=== PATIENT | female | born 1960 | race Caucasian/White ===

== ENCOUNTER 2019-03-17 00:49 | Inpatient (IN) ==
[2019-03-17] MEDS ORDERED: LACTATED RINGERS 1,000 ML IV SCH (01:00)
[2019-03-17] MEDS ORDERED: ALBUTEROL SULFATE 5 MG/ML NEB SOLUTION BOTTLE NEB ONE (01:04)
[2019-03-17] MEDS ORDERED: methylPREDNISolone SOD SUCC 125 MG/2 ML VIAL IV ONE (01:05)
[2019-03-17] MEDS ORDERED: AZITHROMYCIN 500 MG in DEXTROSE 5% IN WATER 250 ML IV ONE (01:09)
[2019-03-17] MEDS ORDERED: FUROSEMIDE 40 MG/4 ML VIAL IV ONE (01:09)
[2019-03-17] MEDS ORDERED: cefTRIAXone 2 GM in DEXTROSE 5% IN WATER 50 ML IV ONE (01:09)
[2019-03-17 02:08] LABS: Basophils # (Auto) 0 K/mcL (0.0-0.3); Basophils % (Auto) 0.2 % (0.0-2.0); Eosinophils # (Auto) 0.4 K/mcL (0.0-0.7); Granulocytes % (Auto) 82.3 % (38.0-78.0); Hemoglobin 15.3 g/dL (12.0-15.0); Lymphocytes # (Auto) 1.6 K/mcL (1.5-4.8); Lymphocytes % (Auto) 8.7 % (15.5-49.0); Mean Cell Volume 91.2 fL (80.0-100.0); Mean Corpuscular HGB Conc 32.6 g/dL (31.0-36.0); Mean Platelet Volume 9.7 fL (7.4-10.4); Monocytes # (Auto) 1.3 K/mcL (0.1-0.9); Monocytes % (Auto) 6.8 % (1.0-12.0); Platelet Count 252 K/mcL (140-440); RBC 5.15 M/mcL (4.00-5.20); Red Cell Distribution Width 15.4 % (11.5-14.5); WBC 18.4 K/mcL (4.5-11.0)
[2019-03-17 02:27] LABS: ALT/SGPT 11 U/l (0-40); AST/SGOT 17 U/l (0-37); Albumin 3.1 gm/dL (3.2-5.2); Albumin/Globulin Ratio 0.6 (1.0-2.3); Alkaline Phosphatase 177 U/L (39-117); Bilirubin,Total 0.6 mg/dL (0.0-1.0); Blood Urea Nitrogen 5 mg/dl (6-20); Calcium 9.5 mg/dl (8.6-10.4); Carbon Dioxide 31 mmol/L (22-30); Chloride 92 mmol/L (96-108); Globulin 5.1 gm/dL (2.2-3.7); Glomerular Filtration Rate 116; Glucose 174 mg/dL (70-105); proBNP 612.7 pg/ml (0-125)
[2019-03-17] MEDS ORDERED: methylPREDNISolone SOD SUCC 125 MG/2 ML VIAL IV SCH (06:00)
[2019-03-17 06:19] LABS: Basophils # (Auto) 0 K/mcL (0.0-0.3); Basophils % (Auto) 0.2 % (0.0-2.0); Eosinophils # (Auto) 0 K/mcL (0.0-0.7); Eosinophils % (Auto) 0.2 % (0.0-7.0); Granulocytes % (Auto) 92.3 % (38.0-78.0); Hematocrit 46.8 % (36.0-48.0); Hemoglobin 15.4 g/dL (12.0-15.0); Lymphocytes # (Auto) 0.7 K/mcL (1.5-4.8); Lymphocytes % (Auto) 4.7 % (15.5-49.0); Mean Cell Volume 91.1 fL (80.0-100.0); Mean Corpuscular HGB Conc 32.8 g/dL (31.0-36.0); Mean Platelet Volume 9.3 fL (7.4-10.4); Monocytes # (Auto) 0.4 K/mcL (0.1-0.9); Monocytes % (Auto) 2.6 % (1.0-12.0); Platelet Count 238 K/mcL (140-440); RBC 5.14 M/mcL (4.00-5.20); Red Cell Distribution Width 15.7 % (11.5-14.5)
[2019-03-17 06:39] LABS: ALT/SGPT 11 U/l (0-40); AST/SGOT 16 U/l (0-37); Albumin/Globulin Ratio 0.6 (1.0-2.3); Alkaline Phosphatase 167 U/L (39-117); Bilirubin,Direct < 0.2 mg/dL (0.0-0.3); Bilirubin,Total 0.3 mg/dL (0.0-1.0); Blood Urea Nitrogen 5 mg/dl (6-20); Calcium 9.6 mg/dl (8.6-10.4); Carbon Dioxide 33 mmol/L (22-30); Chloride 94 mmol/L (96-108); Globulin 5.2 gm/dL (2.2-3.7); Glomerular Filtration Rate 108; Glucose 151 mg/dL (70-105); Lactate Dehydrogenase 176 U/L (94-250); Phosphorous 3.1 mg/dL (2.7-4.5); Triglycerides 74 mg/dl (<150); Uric Acid 2.6 mg/dL (2.5-8.0)
--- NOTE | 2019-03-17 07:01 | Emergency Department Note ---
SOB HPI - General Chief Complaint: Shortness of Breath/Dyspnea Stated Complaint: shortness of breathe Time Seen by Provider: 03/17/19 00:59 - History of Present Illness This patient has a history of both COPD and heart failure and has been short of breath the last 4 days with cough productive of some green phlegm. She normally wears oxygen at night but is been using it 24/. She is wheezy and in some distress with an O2 saturation in the 70s according to EMS. She is up into the 80s on a nonrebreather. We are instituting BiPAP. She is gotten 2 breathing treatments in route and still is quite wheezy. We are instituting a heart neb c ontinuously. - Related Data Home Medications Medication Instructions Recorded Confirmed Albuterol Sulfate [Ventolin] 2 puff INH Q4HP PRN 03/17/19 03/17/19 Cetirizine [ZyrTEC] 10 mg PO DAILY 03/17/19 03/17/19 Febuxostat [Uloric] 80 mg PO QDAY 03/17/19 03/17/19 Furosemide [Lasix] 40 mg PO DAILY 03/17/19 03/17/19 Lisinopril 30 mg PO QDAY 03/17/19 03/17/19 Montelukast Sodium [Singulair] 10 mg PO QDAY 03/17/19 03/17/19 busPIRone [Buspar] 15 mg PO ONCE 03/17/19 03/17/19 Allergies Allergy/AdvReac Type Severity Reaction Status Date / Time No Known Drug Allergies Allergy Unverified 03/17/19 00:56 Review of Systems All systems ED: reviewed and negative except as stated. Past Medical History - Past Medical History Medical history: Reports: CHF, COPD - Social History smoking status: Current every day smoker Physical Exam Limitations: no limitations General appearance: alert Head: atraumatic Eye: Present: normal appearance ENT: Present: normal exam Neck: Present: normal inspection Chest: Present: normal inspection Respiratory: Present: wheezes Cardiovascular: Present: regular rate, normal rhythm, normal heart sounds Abdominal: Present: soft. Absent: distention, tenderness Neurological: Present: alert Psychiatric: Present: normal affect Skin: Present: warm, dry Course Vital Signs Pulse Rate 117 H 03/17/19 00:50 Respiratory Rate 32 H 03/17/19 00:50 Blood Pressure 139/108 03/17/19 00:50 Pulse Oximetry (%) 80 L 03/17/19 00:50 Temperature 98.4 F 03/17/19 04:01 Pulse Rate 89 03/17/19 06:00 Respiratory Rate 24 H 03/17/19 06:00 Blood Pressure 130/63 03/17/19 06:00 Pulse Oximetry (%) 91 03/17/19 06:00 Shortness of Breath/Dyspnea - [facility] Narrative Medical decision making narrative: Chest x-ray to my reading was concerning for congestive heart failure however her BNP was only 600. She did respond to BiPAP and was much more comfortable with O2 saturations in the high 90s. Initial blood gas showed a PCO2 of 66. But at this time I think she is improving and will avoid intubation. I did do blood cultures and treated her with Rocephin and Zithromax. Also gave her 40 mg of Lasix IV. Discussed the case with Dr. Guadalupe and she will be admitted to the hospital. - Lab Data Lab results reviewed: Yes I reviewed the patient's lab results. Result diagrams: 03/17/19 05:37 03/17/19 05:37 Lab Results 03/17/19 03/17/19 03/17/19 Range/Units 01:18 01:18 01:18 WBC 18.4 H (4.5-11.0) K/mcL RBC 5.15 (4.00-5.20) M/mcL Hgb 15.3 H (12.0-15.0) g/dL Hct 47.0 (36.0-48.0) % MCV 91.2 (80.0-100.0) fL MCH 29.7 (26.0-34.0) pg MCHC 32.6 (31.0-36.0) g/dL RDW 15.4 H (11.5-14.5) % Plt Count 252 (140-440) K/mcL MPV 9.7 (7.4-10.4) fL Gran % 82.3 H (38.0-78.0) % Lymph % (Auto) 8.7 L (15.5-49.0) % [place] % (Auto) 6.8 (1.0-12.0) % Eos % (Auto) 2.0 (0.0-7.0) % Baso % (Auto) 0.2 (0.0-2.0) % Gran # 15.1 H (1.8-8.0) K/mcL Lymph # (Auto) 1.6 (1.5-4.8) K/mcL [place] # (Auto) 1.3 H (0.1-0.9) K/mcL Eos # (Auto) 0.4 (0.0-0.7) K/mcL Baso # (Auto) 0 (0.0-0.3) K/mcL VBG Lactic Acid 0.7 (0.5-2.0) mmol/L Sodium 134 (133-145) mmol/L Potassium 3.7 (3.3-5.1) mmol/L Chloride 92 L (96-108) mmol/L Carbon Dioxide 31 H (22-30) mmol/L Anion Gap 11.0 (8-16) BUN 5 L (6-20) mg/dl Creatinine 0.4 L (0.6-1.1) mg/dl GFR Calculation 116 Glucose 174 H (70-105) mg/dL Calcium 9.5 (8.6-10.4) mg/dl Total Bilirubin 0.6 (0.0-1.0) mg/dL AST 17 (0-37) U/l ALT 11 (0-40) U/l Alkaline Phosphatase 177 H (39-117) U/L NT-Pro-B Natriuret Pep 612.7 H (0-125) pg/ml Total Protein 8.2 (5.9-8.4) gm/dL Albumin 3.1 L (3.2-5.2) gm/dL Globulin 5.1 H (2.2-3.7) gm/dL Albumin/Globulin Ratio 0.6 L (1.0-2.3) - Radiology Data Radiology results reviewed: Yes I reviewed the patient's radiology results. Disposition Pt seen by MANAGER INTEL/PA only: No Clinical Impression: Acute exacerbation of chronic obstructive airways disease, Congestive heart failure Disposition: Xfer As Inpt ([facility]) Condition: Undetermined
[2019-03-17] MEDS ORDERED: ACETAMINOPHEN 650 MG/65 ML BOTTLE IV PRN (07:46)
[2019-03-17] MEDS ORDERED: POTASSIUM CHLORIDE 20 MEQ PACKET PO PRN (07:46)
[2019-03-17] MEDS ORDERED: guaiFENesin/CODEINE 10 ML UDC PO PRN (07:46)
[2019-03-17] MEDS ORDERED: ACETAMINOPHEN 325 MG TABLET PO PRN (07:46)
[2019-03-17] MEDS ORDERED: MELATONIN 3 MG TABLET PO PRN (07:46)
[2019-03-17] MEDS ORDERED: MAGNESIUM SULFATE 2 GM/50 ML BAG IV PRN (07:46)
[2019-03-17] MEDS ORDERED: POTASSIUM CHLORIDE 40 MEQ in DEXTROSE 5% IN WATER 500 ML IV PRN (07:46)
[2019-03-17] MEDS ORDERED: ONDANSETRON 4 MG/2 ML VIAL IV PRN (07:46)
--- NOTE | 2019-03-17 07:50 | Internal Med History&Physical ---
Medical - H&P: [facility] Patient information: Note initiated : 03/17/19 at 7:49 am Service Date, if different from initiated Date: [] Patient: Grace Canales a 58 y/o F admitted on 03/17/19 for shortness of breathe. Chief Complaint: [] Chief complaint: SOB History of present illness: Ms. Canales is a 58 year old F active smoker and with a known history of COPD who presents with 4 days onset of worsening shortness of breath along progressive orthopnea and inability to perform activities of daily living. Patient normally uses inhalers but with minimal relief. She is up-to-date on pneumonia and flu vaccine. She however continues to smoke and stopped 4 days ago with onset of symptoms. She denies associated fever but endorses a yellow productive sputum. She denies diarrhea dysuria joint pain headache, rash, shaking chills. She presents to the ER with above symptoms. Initial work-up was consistent with COPD exacerbation with sats mid 60s. Patient was started on BiPAP along with steroids and bronchodilators. Subsequently hospitalist service was consulted. At the time of evaluation patient is currently on BiPAP. Now able to talk and answer questions. She appears remarkably distress. She is tachycardic. She denies sick contacts. Review of systems A 10 point review of system was performed and is negative except for one discussed above Medical - H&P: PMH Medical history: History of COPD Gout Anxiety disorder Hypertension Medical - H&P: Meds Home Medications Medication Instructions Recorded Confirmed Type Albuterol Sulfate [Ventolin] 2 puff INH Q4HP PRN 03/17/19 03/17/19 History Aspirin 81 mg PO DAILY 03/17/19 03/17/19 History Cetirizine [ZyrTEC] 10 mg PO DAILY 03/17/19 03/17/19 History Febuxostat [Uloric] 80 mg PO QDAY 03/17/19 03/17/19 History Fluticasone/Salmeterol [Advair 1 puff INH BID 03/17/19 03/17/19 History 250-50 Diskus] Furosemide [Lasix] 20 mg PO BID 03/17/19 03/17/19 History HYDROcodone/APAP 10/325MG [[place] 1 tab PO Q12HP PRN 03/17/19 03/17/19 History 10-325Mg] LORazepam [Ativan] 2 mg PO BIDP PRN 03/17/19 03/17/19 History Lisinopril [Zestril] 30 mg PO DAILY 03/17/19 03/17/19 History Montelukast Sodium [Singulair] 10 mg PO HS 03/17/19 03/17/19 History Venlafaxine [Effexor Xr] 150 mg PO DAILY 03/17/19 03/17/19 History busPIRone [Buspar] 15 mg PO BIDP PRN 03/17/19 03/17/19 History morphine [Ms Contin] 60 mg PO TID 03/17/19 03/17/19 History tiZANidine [Zanaflex] 4 mg PO TIDP PRN 03/17/19 03/17/19 History Allergies Allergy/AdvReac Type Severity Reaction Status Date / Time No Known Drug Allergies Allergy Unverified 03/17/19 00:56 Medical - H&P: Exam - Constitutional Vitals: Temp Pulse Resp BP Pulse Ox 98.0 F 82 26 H 139/80 94 03/17/19 07:36 03/17/19 07:36 03/17/19 07:36 03/17/19 07:36 03/17/19 07:36 General appearance: moderate distress Exam: Dyspneic and anxious Currently on BiPAP Head normocephalic Oral cavity dry No ear nose discharge Neck no lymphadenopathy or bruit S1-S2 tachycardia Prolonged expiratory phase/rhonchi Diminished breath sounds bases Abdomen soft nontender Lower extremity no cyanosis clubbing no joint swelling Skin no suspicious lesion Psych anxious but alert and responding to commands Neuro nonfocal Medical - H&P: Reslt - Labs CBC & Chem 7: 03/18/19 03:35 03/18/19 03:35 Labs: Short CBC 03/17/19 03/17/19 Range/Units 01:18 05:37 WBC 18.4 H 15.0 H (4.5-11.0) K/mcL Hgb 15.3 H 15.4 H (12.0-15.0) g/dL Hct 47.0 46.8 (36.0-48.0) % Plt Count 252 238 (140-440) K/mcL BMP 03/17/19 03/17/19 01:18 05:37 Sodium 134 138 Potassium 3.7 4.0 Chloride 92 L 94 L Carbon Dioxide 31 H 33 H BUN 5 L 5 L Creatinine 0.4 L 0.5 L Glucose 174 H 151 H Calcium 9.5 9.6 Liver Function 03/17/19 03/17/19 Range/Units 01:18 05:37 Total Bilirubin 0.6 0.3 (0.0-1.0) mg/dL Direct Bilirubin < 0.2 (0.0-0.3) mg/dL GGT 75 H (5-36) U/L AST 17 16 (0-37) U/l ALT 11 11 (0-40) U/l Alkaline Phosphatase 177 H 167 H (39-117) U/L Albumin 3.1 L 3.0 L (3.2-5.2) gm/dL Medical - H&P: A/P (1) Acute respiratory failure with hypoxia and hypercapnia Current visit: Yes Status: Acute * Acute hypoxic hypercapnic respiratory failure-continue BiPAP/oxygen/ABG s/pulmonary toilet * COPD exacerbation-continue steroids/bronchodilators/noninvasive ventilation * Anxiety disorder continue BuSpar * History of gout continue febuxostat * Seasonal allergy disorder continue Zyrtec * Hypertension continue lisinopril * C/c pain - on home meds * Full code * Prophylaxis heparin Plan * ICU admit in light of hypoxic hypercarbic respiratory failure * Noninvasive ventilation/serial ABGs * Bronchodilators/IV steroids/pulmonary toilet * Prior medical condition management on home meds Critical care time spent in excess of 35 minutes on management of hypoxic respiratory failure/noninvasive ventilation Medical - H&P: Qual - VTE Deep Vein Thrombosis/Pulmonary Embolism Present on Admission: No
--- NOTE | 2019-03-17 08:27 | XRay Report ---
HISTORY: Worsening shortness of breath, smoker FINDINGS: There are moderate to severe generalized alveolar infiltrates throughout both lungs. There is greater involvement in the right lung than left. The heart is mildly enlarged but magnified by portable technique. No pleural effusion is detected. The agata appear prominent. No prior study is available for comparison. IMPRESSION: widespread bilateral infiltrates. This could be due to pneumonia, pulmonary edema, noninfectious inflammatory process or ARDS. Mild cardiomegaly IMPRESSION: Interpreted and Authenticated by: Santiago Akers 03/17/19
[2019-03-17] MEDS: Febuxostat [Uloric] 80 mg Tab PO SCH (09:03)
[2019-03-17] MEDS: DOCUSATE SODIUM 100 MG CAPSULE PO SCH ×3 (09:04→21:10)
[2019-03-17] MEDS: LISINOPRIL 20 MG TABLET PO SCH (09:04)
[2019-03-17] MEDS: THIAMINE 100 MG TABLET PO SCH ×2 (09:04→09:32)
[2019-03-17] MEDS: FOLIC ACID 1 MG TABLET PO SCH ×2 (09:04→09:32)
[2019-03-17] MEDS: HEPARIN 5,000 UNIT/ML VIAL SQ SCH ×2 (09:04→22:27)
[2019-03-17] MEDS: MONTELUKAST 10 MG TABLET PO SCH ×3 (09:04→21:12)
[2019-03-17] MEDS: FUROSEMIDE 40 MG TABLET PO SCH (09:04)
[2019-03-17] MEDS: MULTIVIT,THER IRON,CA,FA & MIN 1 TABLET PO SCH ×2 (09:04→09:32)
[2019-03-17] MEDS: CETIRIZINE 10 MG TABLET PO SCH (09:05)
[2019-03-17] MEDS: busPIRone 5 MG TABLET PO SCH (09:08)
[2019-03-17] MEDS: LEVOFLOXACIN 750 MG/150 ML BAG IV SCH (09:09)
[2019-03-17] MEDS: IPRATROPIUM/ALBUTEROL 3 ML AMPUL.NEB NEB SCH ×4 (09:28→23:21)
[2019-03-17] MEDS: BUDESONIDE 0.5 MG/2 ML AMPUL.NEB NEB SCH ×2 (09:28→18:42)
[2019-03-17] MEDS: methylPREDNISolone SOD SUCC 125 MG/2 ML VIAL IV SCH ×2 (14:06→22:27)
[2019-03-17] MEDS: 0.9 % SODIUM CHLORIDE 10 ML SYRINGE IV SCH ×2 (14:06→22:27)
[2019-03-17] MEDS: SENNOSIDES/DOCUSATE SODIUM 1 TAB TABLET PO SCH (21:10)
[2019-03-17] MEDS: MUPIROCIN OINT 2% 22GM NARES SCH (22:26)
[2019-03-18] MEDS: IPRATROPIUM/ALBUTEROL 3 ML AMPUL.NEB NEB SCH ×6 (03:00→23:15)
[2019-03-18] MEDS: 0.9 % SODIUM CHLORIDE 10 ML SYRINGE IV SCH ×3 (05:28→20:25)
[2019-03-18] MEDS: methylPREDNISolone SOD SUCC 125 MG/2 ML VIAL IV SCH ×3 (05:28→21:50)
[2019-03-18 06:31] LABS: Hematocrit 45.8 % (36.0-48.0); Hemoglobin 14.9 g/dL (12.0-15.0); Mean Cell Volume 91.5 fL (80.0-100.0); Mean Corpuscular HGB Conc 32.5 g/dL (31.0-36.0); Mean Platelet Volume 9.6 fL (7.4-10.4); Platelet Count 264 K/mcL (140-440); RBC 5.01 M/mcL (4.00-5.20); Red Cell Distribution Width 15.6 % (11.5-14.5); WBC 16.1 K/mcL (4.5-11.0)
[2019-03-18 06:47] LABS: ALT/SGPT 10 U/l (0-40); AST/SGOT 15 U/l (0-37); Albumin 2.9 gm/dL (3.2-5.2); Albumin/Globulin Ratio 0.6 (1.0-2.3); Alkaline Phosphatase 154 U/L (39-117); Bilirubin,Direct < 0.2 mg/dL (0.0-0.3); Bilirubin,Total 0.3 mg/dL (0.0-1.0); Carbon Dioxide 31 mmol/L (22-30); Glomerular Filtration Rate 108; Glucose 140 mg/dL (70-105); Lactate Dehydrogenase 173 U/L (94-250); Phosphorous 3.5 mg/dL (2.7-4.5); Triglycerides 111 mg/dl (<150); Uric Acid 2.8 mg/dL (2.5-8.0)
[2019-03-18 06:48] LABS: Blood Urea Nitrogen 17 mg/dl (6-20); Chloride 95 mmol/L (96-108)
[2019-03-18] MEDS: BUDESONIDE 0.5 MG/2 ML AMPUL.NEB NEB SCH ×2 (07:26→20:45)
--- NOTE | 2019-03-18 08:30 | XRay Report ---
HISTORY: Short of breath and follow-up bilateral pulmonary infiltrates FINDINGS: There are mild generalized infiltrates throughout both lungs. The greatest consolidation is in the left lung base adjacent to the diaphragm. The consolidation above the diaphragm has become worse since 03/17/19. Remainder of the infiltrates have improved. Remaining an underlying parenchymal scarring of the minor fissure. The heart is borderline enlarged and has decreased in size. No pleural effusion is detected. IMPRESSION: improving bilateral infiltrates. The relative rapid improvement suggests this is more likely due to pulmonary edema than pneumonia. Increasing consolidation at the left lung base which may be superimposed atelectasis Interpreted and Authenticated by: Santiago Akers 03/18/19
[2019-03-18] MEDS ORDERED: LORazepam 1 MG TABLET PO PRN (09:16)
[2019-03-18] MEDS ORDERED: HYDROcodone/APAP 10/325MG TABLET PO PRN (09:16)
[2019-03-18] MEDS ORDERED: tiZANidine 4 MG TABLET PO PRN (09:16)
[2019-03-18 09:26] LABS: Band Neutrophils % 29 % (0-10); Lymphocytes % 11 % (15-49); Monocytes % (Manual) 2 % (1-12); Platelet Estimate NORMAL (NORMAL); RBC Morphology NORMAL (NORMAL); Segmented Neutrophils % 58 % (38-78)
[2019-03-18] MEDS: FOLIC ACID 1 MG TABLET PO SCH (09:38)
[2019-03-18] MEDS: MULTIVIT,THER IRON,CA,FA & MIN 1 TABLET PO SCH (09:38)
[2019-03-18] MEDS: DOCUSATE SODIUM 100 MG CAPSULE PO SCH ×3 (09:38→20:43)
[2019-03-18] MEDS: THIAMINE 100 MG TABLET PO SCH (09:38)
[2019-03-18] MEDS: FUROSEMIDE 40 MG TABLET PO SCH (09:38)
[2019-03-18] MEDS: LISINOPRIL 20 MG TABLET PO SCH (09:39)
[2019-03-18] MEDS: VENLAFAXINE 150 MG CAP.XL.24H PO SCH (09:39)
[2019-03-18] MEDS: busPIRone 5 MG TABLET PO SCH (09:39)
[2019-03-18] MEDS: ASPIRIN 81 MG TAB.CHEW PO SCH (09:40)
[2019-03-18] MEDS: HEPARIN 5,000 UNIT/ML VIAL SQ SCH ×2 (09:40→20:24)
[2019-03-18] MEDS: CETIRIZINE 10 MG TABLET PO SCH (09:40)
[2019-03-18] MEDS: morphine 30 MG TAB.SR.12H PO SCH ×3 (09:41→20:42)
[2019-03-18] MEDS: LEVOFLOXACIN 750 MG/150 ML BAG IV SCH (09:42)
[2019-03-18] MEDS: MUPIROCIN OINT 2% 22GM NARES SCH ×2 (09:42→20:24)
[2019-03-18] MEDS: Febuxostat [Uloric] 80 mg Tab PO SCH (09:43)
--- NOTE | 2019-03-18 13:13 | Internal Med Progress Note ---
Medical - PN: Subj Patient information: Note initiated : 03/18/19 at 1:09 pm Service Date, if different from initiated Date: [] Patient: Grace Canales a 58 y/o F admitted on 03/17/19 for shortness of breathe. Chief Complaint: [] Interval history: Ms. Canales is a 58 year old F active smoker and with a known history of COPD who presents with 4 days onset of worsening shortness of breath along progressive orthopnea and inability to perform activities of daily living. Patient normally uses inhalers but with minimal relief. She is up-to-date on pneumonia and flu vaccine. She however continues to smoke and stopped 4 days ago with onset of symptoms. She denies associated fever but endorses a yellow productive sputum. She denies diarrhea dysuria joint pain headache, rash, shaking chills. She presents to the ER with above symptoms. Initial work-up was consistent with COPD exacerbation with sats mid 60s. Patient was started on BiPAP along with steroids and bronchodilators. Subsequently hospitalist service was consulted. At the time of evaluation patient is currently on BiPAP. Now able to talk and a nswer questions. She appears remarkably distress. She is tachycardic. She denies sick contacts. 03/18-patient clinically improved however continues to be on noninvasive ventilation. Improved work of breathing/hypoxia. Continuing steroids and bronchodilators. Counseled for smoking cessation. Restarted back on home medications. Continue weaning noninvasive ventilation - Constitutional Vitals: Vital Signs Temp Pulse Resp BP Pulse Ox 97.6 F 86 23 H 111/56 92 03/18/19 12:01 03/18/19 12:01 03/18/19 12:01 03/18/19 12:01 03/18/19 12:01 Period Temp Pulse Resp BP Sys/Riggins Pulse Ox Last 24 Hr 97.1 F-98.3 F 66-96 17-29 99-121/42-73 83-100 Intake and Output 03/17/19 03/18/19 03/18/19 21:59 05:59 13:59 Intake Total 240 0 720 Output Total 950 Balance 240 -950 720 Weight 247 lb 1.6 oz Intake & Output: Intake & Output 03/17/19 03/18/19 03/18/19 21:59 05:59 13:59 Intake Total 240 0 720 Output Total 950 Balance 240 -950 720 Weight 247 lb 1.6 oz Intake: Oral 240 0 720 Output: Void Amount 950 Other: Meal Breakfast Percent of Meal Consumed 75% General appearance: no acute distress Exam: On BiPAP Nonlabored breathing Nondistended abdomen Minimal anxiety No telemetry events Medical - PN: Obj Da - Labs CBC & Chem 7: 03/18/19 03:35 03/18/19 03:35 Labs: Abnormal Lab Results 03/18/19 03/18/19 03/17/19 03:35 03:35 05:37 WBC 16.1 H Hgb RDW 15.6 H Gran % Lymph % (Auto) Gran # Lymph # (Auto) [place] # (Auto) Band Neutrophils % 29 H Lymphocytes % 11 L Chloride 95 L 94 L Carbon Dioxide 31 H 33 H BUN 5 L Creatinine 0.5 L 0.5 L Glucose 140 H 151 H GGT 60 H 75 H Alkaline Phosphatase 154 H 167 H NT-Pro-B Natriuret Pep Albumin 2.9 L 3.0 L Globulin 5.0 H 5.2 H Albumin/Globulin Ratio 0.6 L 0.6 L 03/17/19 03/17/19 03/17/19 05:37 01:18 01:18 WBC 15.0 H 18.4 H Hgb 15.4 H 15.3 H RDW 15.7 H 15.4 H Gran % 92.3 H 82.3 H Lymph % (Auto) 4.7 L 8.7 L Gran # 13.8 H 15.1 H Lymph # (Auto) 0.7 L [place] # (Auto) 1.3 H Band Neutrophils % Lymphocytes % Chloride 92 L Carbon Dioxide 31 H BUN 5 L Creatinine 0.4 L Glucose 174 H GGT Alkaline Phosphatase 177 H NT-Pro-B Natriuret Pep 612.7 H Albumin 3.1 L Globulin 5.1 H Albumin/Globulin Ratio 0.6 L Meds: Medications Acetaminophen (Tylenol) 650 mg PO Q4-6HP PRN; Protocol PRN Reason: Per Pain Protocol/Fever > 101 Last Admin: 03/18/19 05:10 Dose: 650 mg Documented by: Hydrocodone Bitart/Acetaminophen ([place] 10/325mg) 1 tab PO Q12HP PRN; Protocol PRN Reason: Pain Last Admin: 03/18/19 09:40 Dose: 1 tab Documented by: Albuterol/Ipratropium (Duoneb) 3 ml NEB Q4HRT [facility] Last Admin: 03/18/19 11:07 Dose: 3 ml Documented by: Aspirin (Aspirin) 81 mg PO DAILY [facility] Last Admin: 03/18/19 09:40 Dose: 81 mg Documented by: Budesonide (Pulmicort) 0.5 mg NEB Q12 [facility] Last Admin: 03/18/19 07:26 Dose: 0.5 mg Documented by: Buspirone HCl (Buspar) 15 mg PO DAILY [facility] Last Admin: 03/18/19 09:39 Dose: 15 mg Documented by: Cetirizine HCl (Zyrtec) 10 mg PO DAILY [facility] Last Admin: 03/18/19 09:40 Dose: 10 mg Documented by: Docusate Sodium (Colace) 100 mg PO BID [facility] Last Admin: 03/18/19 09:38 Dose: 100 mg Documented by: Folic Acid (Folic Acid) 1 mg PO DAILY [facility] Last Admin: 03/18/19 09:38 Dose: 1 mg Documented by: Furosemide (Lasix) 40 mg PO DAILY [facility] Last Admin: 03/18/19 09:38 Dose: 40 mg Documented by: Guaifenesin/Codeine Phosphate (Robitussin Ac) 10 ml PO Q4HP PRN PRN Reason: Cough Last Admin: 03/18/19 09:38 Dose: 10 ml Documented by: Heparin Sodium (Porcine) (Heparin) 5,000 unit SQ Q12 [facility] Last Admin: 03/18/19 09:40 Dose: 5,000 unit Documented by: Acetaminophen (Ofirmev) 650 mg in 65 mls @ 130 mls/hr IV Q6HP PRN; Protocol PRN Reason: Per Pain Protocol/Fever > 101 Potassium Chloride 40 meq/ (Dextrose) 520 mls @ 130 mls/hr IV UD PRN PRN Reason: K+ = or < 3.5 Magnesium Sulfate (Magnesium Sulfate) 2 gm in 50 mls @ 50 mls/hr IV UD PRN PRN Reason: MG = or < 1.7 Levofloxacin (Levaquin) 750 mg in 150 mls @ 100 mls/hr IV Q24H [facility]; Protocol Last Admin: 03/18/19 09:42 Dose: 100 mls/hr Documented by: Iron Carb/Multivit/Product Examiner/Folic Acid (Multivitamin W/Minerals) 1 tab PO DAILY [facility] Last Admin: 03/18/19 09:38 Dose: 1 tab Documented by: Lisinopril (Zestril) 30 mg PO QDAY [facility] Last Admin: 03/18/19 09:39 Dose: 30 mg Documented by: Lorazepam (Ativan) 1 mg PO BIDP PRN PRN Reason: Anxiety Last Admin: 03/18/19 09:39 Dose: 1 mg Documented by: Melatonin (Melatonin 3mg Tablet) 3 mg PO HSP PRN PRN Reason: Insomnia Methylprednisolone Sodium Succinate (Solu-Medrol) 60 mg IV Q8 [facility] Last Admin: 03/18/19 05:28 Dose: 60 mg Documented by: Montelukast Sodium (Singular) 10 mg PO [facility] Last Admin: 03/17/19 21:12 Dose: Not Given Documented by: Morphine Sulfate (Ms Contin) 60 mg PO TID [facility]; Protocol Last Admin: 03/18/19 09:41 Dose: 60 mg Documented by: Mupirocin (Bactroban Oint 2%) 1 dose NARES BID [facility] Last Admin: 03/18/19 09:42 Dose: 1 dose Documented by: Febuxostat [Uloric] (80 Mg Tab) 1 dose PO QDAY [facility] Last Admin: 03/18/19 09:43 Dose: 1 dose Documented by: Ondansetron HCl (Zofran) 4 mg IV Q4-6HP PRN; Protocol PRN Reason: Nausea And Vomiting Potassium Chloride (Klor-Con) 40 meq PO DAILYP PRN PRN Reason: K+ < 3.5 Senna/Docusate Sodium (Senna Plus Tablet) 1 tab PO [facility] Last Admin: 03/17/19 21:10 Dose: Not Given Documented by: Sodium Chloride (Saline Flush) 10 ml IV Q8 [facility] Last Admin: 03/18/19 05:28 Dose: 10 ml Documented by: Thiamine HCl (Vitamin B1) 100 mg PO DAILY [facility] Last Admin: 03/18/19 09:38 Dose: 100 mg Documented by: Tizanidine HCl (Zanaflex) 4 mg PO TIDP PRN PRN Reason: MUSCLE SPASMS Last Admin: 03/18/19 09:39 Dose: 4 mg Documented by: Venlafaxine HCl (Effexor Xr) 150 mg PO DAILY [facility] Last Admin: 03/18/19 09:39 Dose: 150 mg Documented by: Medical - PN: A/P - Time Spent With Patient Total time spent is greater than 50% in coordination of care (as documented) at patient's floor/unit and/or counseling patient: Greater than 35 minutes (Critical care time) (1) Acute respiratory failure with hypoxia and hypercapnia Status: Acute Assessment and plan: * Acute hypoxic hypercapnic respiratory failure-secondary to COPD exacerbation. Clinical improvement on noninvasive ventilation improved saturation. Continue serial ABG/pulmonary toilet * COPD exacerbation-continue steroids/bronchodilators/noninvasive ventilation * Anxiety disorder continue BuSpar/Effexor/benzodiazepine * History of gout continue febuxostat * Seasonal allergy disorder continue Zyrtec * Hypertension continue lisinopril * C/c pain - on home dose morphine * Full code * Prophylaxis heparin Plan * Continue weaning noninvasive ventilation as tolerated * Check ABG * Bronchodilators/IV steroids/pulmonary toilet * Transition to oral steroids in 24-hour * Prior medical condition management on home meds Current Visit: Yes Medical - PN: Qual - VTE Deep Vein Thrombosis/Pulmonary Embolism Present on Admission: No
[2019-03-18] MEDS: SENNOSIDES/DOCUSATE SODIUM 1 TAB TABLET PO SCH ×2 (20:24→20:42)
[2019-03-18] MEDS: MONTELUKAST 10 MG TABLET PO SCH (20:25)
[2019-03-19] MEDS: IPRATROPIUM/ALBUTEROL 3 ML AMPUL.NEB NEB SCH ×6 (03:44→23:20)
[2019-03-19] MEDS: 0.9 % SODIUM CHLORIDE 10 ML SYRINGE IV SCH ×3 (05:57→20:50)
[2019-03-19] MEDS: methylPREDNISolone SOD SUCC 125 MG/2 ML VIAL IV SCH ×2 (05:57→10:05)
[2019-03-19 06:29] LABS: Hematocrit 43.8 % (36.0-48.0); Hemoglobin 14.4 g/dL (12.0-15.0); Mean Cell Volume 89.9 fL (80.0-100.0); Mean Corpuscular HGB Conc 32.9 g/dL (31.0-36.0); Mean Platelet Volume 9.4 fL (7.4-10.4); Platelet Count 271 K/mcL (140-440); RBC 4.87 M/mcL (4.00-5.20); Red Cell Distribution Width 15.9 % (11.5-14.5); WBC 14.5 K/mcL (4.5-11.0)
[2019-03-19 07:10] LABS: ALT/SGPT 17 U/l (0-40); AST/SGOT 26 U/l (0-37); Albumin/Globulin Ratio 0.7 (1.0-2.3); Alkaline Phosphatase 153 U/L (39-117); Bilirubin,Direct < 0.2 mg/dL (0.0-0.3); Bilirubin,Total 0.3 mg/dL (0.0-1.0); Blood Urea Nitrogen 21 mg/dl (6-20); Calcium 9.7 mg/dl (8.6-10.4); Carbon Dioxide 34 mmol/L (22-30); Chloride 96 mmol/L (96-108); Globulin 4.3 gm/dL (2.2-3.7); Glomerular Filtration Rate 97; Glucose 147 mg/dL (70-105); Lactate Dehydrogenase 202 U/L (94-250); Triglycerides 108 mg/dl (<150); Uric Acid 2.5 mg/dL (2.5-8.0)
[2019-03-19] MEDS: BUDESONIDE 0.5 MG/2 ML AMPUL.NEB NEB SCH ×4 (07:40→19:19)
[2019-03-19 08:01] LABS: Band Neutrophils % 6 % (0-10); Lymphocytes % 12 % (15-49); Monocytes % (Manual) 1 % (1-12); Platelet Estimate NORMAL (NORMAL); RBC Morphology NORMAL (NORMAL); Segmented Neutrophils % 81 % (38-78)
[2019-03-19] MEDS: ASPIRIN 81 MG TAB.CHEW PO SCH ×2 (08:07→10:02)
[2019-03-19] MEDS: HEPARIN 5,000 UNIT/ML VIAL SQ SCH ×3 (08:07→20:33)
[2019-03-19] MEDS: THIAMINE 100 MG TABLET PO SCH ×2 (08:07→10:05)
[2019-03-19] MEDS: MULTIVIT,THER IRON,CA,FA & MIN 1 TABLET PO SCH ×2 (08:07→10:04)
[2019-03-19] MEDS ORDERED: LORazepam 1 MG TABLET PO PRN (09:00)
[2019-03-19] MEDS ORDERED: HYDROcodone/APAP 10/325MG TABLET PO PRN (09:00)
[2019-03-19] MEDS ORDERED: ACETAMINOPHEN 325 MG TABLET PO PRN (09:00)
[2019-03-19] MEDS ORDERED: ACETAMINOPHEN 650 MG/65 ML BOTTLE IV PRN (09:00)
[2019-03-19] MEDS ORDERED: POTASSIUM CHLORIDE 20 MEQ PACKET PO PRN (09:00)
[2019-03-19] MEDS ORDERED: guaiFENesin/CODEINE 10 ML UDC PO PRN (09:00)
[2019-03-19] MEDS ORDERED: ONDANSETRON 4 MG/2 ML VIAL IV PRN (09:00)
[2019-03-19] MEDS ORDERED: MAGNESIUM SULFATE 2 GM/50 ML BAG IV PRN (09:00)
[2019-03-19] MEDS ORDERED: MELATONIN 3 MG TABLET PO PRN (09:00)
[2019-03-19] MEDS ORDERED: POTASSIUM CHLORIDE 40 MEQ in DEXTROSE 5% IN WATER 500 ML IV PRN (09:00)
[2019-03-19] MEDS ORDERED: tiZANidine 4 MG TABLET PO PRN (09:00)
--- NOTE | 2019-03-19 09:39 | Internal Med Progress Note ---
Medical - PN: Subj Patient information: Note initiated : 03/19/19 at 9:36 am Service Date, if different from initiated Date: [] Patient: Grace Canales a 58 y/o F admitted on 03/17/19 for shortness of breathe. Chief Complaint: [] Interval history: Ms. Canales is a 58 year old F active smoker and with a known history of COPD who presents with 4 days onset of worsening shortness of breath along progressive orthopnea and inability to perform activities of daily living. Patient normally uses inhalers but with minimal relief. She is up-to-date on pneumonia and flu vaccine. She however continues to smoke and stopped 4 days ago with onset of symptoms. She denies associated fever but endorses a yellow productive sputum. She denies diarrhea dysuria joint pain headache, rash, shaking chills. She presents to the ER with above symptoms. Initial work-up was consistent with COPD exacerbation with sats mid 60s. Patient was started on BiPAP along with steroids and bronchodilators. Subsequently hospitalist service was consulted. At the time of evaluation patient is currently on BiPAP. Now able to talk and a nswer questions. She appears remarkably distress. She is tachycardic. She denies sick contacts. 03/18-patient clinically improved however continues to be on noninvasive ventilation. Improved work of breathing/hypoxia. Continuing steroids and bronchodilators. Counseled for smoking cessation. Restarted back on home medications. Continue weaning noninvasive ventilation 03/19-patient clinically improved. Now off BiPAP since morning. Transfer out of ICU. Continue steroids and bronchodilators. Anticipate discharge in 48 hours once clinically improved. Continue weaning oxygen. Smoking cessation counseling. Antibiotic coverage. - Constitutional Vitals: Vital Signs Temp Pulse Resp BP Pulse Ox 97.9 F 74 17 121/64 90 03/19/19 03:28 03/19/19 07:51 03/19/19 07:51 03/19/19 06:01 03/19/19 07:51 Period Temp Pulse Resp BP Sys/Riggins Pulse Ox Last 24 Hr 97.6 F-97.9 F 65-91 13-32 85-121/45-66 86-95 Intake and Output 03/18/19 03/19/19 03/19/19 21:59 05:59 13:59 Intake Total 240 820 Output Total 1000 Balance 240 820 -1000 Weight 249 lb 12.8 oz Intake & Output: Intake & Output 03/18/19 03/19/19 03/19/19 21:59 05:59 13:59 Intake Total 240 820 Output Total 1000 Balance 240 820 -1000 Weight 249 lb 12.8 oz Intake: Oral 240 820 Output: Urine Catheter Amount 1000 Other: Urine Appearance Clear Urine Color Dark Yellow General appearance: no acute distress Exam: Alert oriented Nonlabored breathing No anxiety Off noninvasive ventilation since this morning Medical - PN: Obj Da - Labs CBC & Chem 7: 03/19/19 03:55 03/19/19 03:55 Labs: Abnormal Lab Results 03/19/19 03/19/19 03/18/19 03:55 03:55 03:35 WBC 14.5 H Hgb RDW 15.9 H Gran % Lymph % (Auto) Gran # Lymph # (Auto) [place] # (Auto) Seg Neutrophils % 81 H Band Neutrophils % Lymphocytes % 12 L Chloride 95 L Carbon Dioxide 34 H 31 H BUN 21 H Creatinine 0.5 L Glucose 147 H 140 H GGT 159 H 60 H Alkaline Phosphatase 153 H 154 H NT-Pro-B Natriuret Pep Albumin 3.0 L 2.9 L Globulin 4.3 H 5.0 H Albumin/Globulin Ratio 0.7 L 0.6 L 03/18/19 03/17/19 03/17/19 03:35 05:37 05:37 WBC 16.1 H 15.0 H Hgb 15.4 H RDW 15.6 H 15.7 H Gran % 92.3 H Lymph % (Auto) 4.7 L Gran # 13.8 H Lymph # (Auto) 0.7 L [place] # (Auto) Seg Neutrophils % Band Neutrophils % 29 H Lymphocytes % 11 L Chloride 94 L Carbon Dioxide 33 H BUN 5 L Creatinine 0.5 L Glucose 151 H GGT 75 H Alkaline Phosphatase 167 H NT-Pro-B Natriuret Pep Albumin 3.0 L Globulin 5.2 H Albumin/Globulin Ratio 0.6 L 03/17/19 03/17/19 01:18 01:18 WBC 18.4 H Hgb 15.3 H RDW 15.4 H Gran % 82.3 H Lymph % (Auto) 8.7 L Gran # 15.1 H Lymph # (Auto) [place] # (Auto) 1.3 H Seg Neutrophils % Band Neutrophils % Lymphocytes % Chloride 92 L Carbon Dioxide 31 H BUN 5 L Creatinine 0.4 L Glucose 174 H GGT Alkaline Phosphatase 177 H NT-Pro-B Natriuret Pep 612.7 H Albumin 3.1 L Globulin 5.1 H Albumin/Globulin Ratio 0.6 L Meds: Medications Acetaminophen (Tylenol) 650 mg PO Q4-6HP PRN; Protocol PRN Reason: Per Pain Protocol/Fever > 101 Hydrocodone Bitart/Acetaminophen ([place] 10/325mg) 1 tab PO Q12HP PRN; Protocol PRN Reason: Pain Albuterol/Ipratropium (Duoneb) 3 ml NEB Q4HRT [facility] Aspirin (Aspirin) 81 mg PO DAILY [facility] Budesonide (Pulmicort) 0.5 mg NEB Q12 [facility] Buspirone HCl (Buspar) 15 mg PO DAILY [facility] Cetirizine HCl (Zyrtec) 10 mg PO DAILY [facility] Docusate Sodium (Colace) 100 mg PO BID [facility] Folic Acid (Folic Acid) 1 mg PO DAILY [facility] Furosemide (Lasix) 40 mg PO DAILY [facility] Guaifenesin/Codeine Phosphate (Robitussin Ac) 10 ml PO Q4HP PRN PRN Reason: Cough Heparin Sodium (Porcine) (Heparin) 5,000 unit SQ Q12 [facility] Potassium Chloride 40 meq/ (Dextrose) 520 mls @ 130 mls/hr IV UD PRN PRN Reason: K+ = or < 3.5 Levofloxacin (Levaquin) 750 mg in 150 mls @ 100 mls/hr IV Q24H [facility]; Protocol Magnesium Sulfate (Magnesium Sulfate) 2 gm in 50 mls @ 50 mls/hr IV UD PRN PRN Reason: MG = or < 1.7 Acetaminophen (Ofirmev) 650 mg in 65 mls @ 130 mls/hr IV Q6HP PRN; Protocol PRN Reason: Per Pain Protocol/Fever > 101 Iron Carb/Multivit/Bear Keeper/Folic Acid (Multivitamin W/Minerals) 1 tab PO DAILY [facility] Lisinopril (Zestril) 30 mg PO QDAY [facility] Lorazepam (Ativan) 1 mg PO BIDP PRN PRN Reason: Anxiety Melatonin (Melatonin 3mg Tablet) 3 mg PO HSP PRN PRN Reason: Insomnia Methylprednisolone Sodium Succinate (Solu-Medrol) 60 mg IV DAILY [facility] Montelukast Sodium (Singular) 10 mg PO HS [facility] Morphine Sulfate (Ms Contin) 60 mg PO TID [facility]; Protocol Mupirocin (Bactroban Oint 2%) 1 dose NARES BID [facility] Febuxostat [Uloric] (80 Mg Tab) 1 dose PO QDAY [facility] Ondansetron HCl (Zofran) 4 mg IV Q4-6HP PRN; Protocol PRN Reason: Nausea And Vomiting Potassium Chloride (Klor-Con) 40 meq PO DAILYP PRN PRN Reason: K+ < 3.5 Senna/Docusate Sodium (Senna Plus Tablet) 1 tab PO HS [facility] Sodium Chloride (Saline Flush) 10 ml IV Q8 [facility] Thiamine HCl (Vitamin B1) 100 mg PO DAILY [facility] Tizanidine HCl (Zanaflex) 4 mg PO TIDP PRN PRN Reason: MUSCLE SPASMS Venlafaxine HCl (Effexor Xr) 150 mg PO DAILY [facility] Medical - PN: A/P - Time Spent With Patient Total time spent is greater than 50% in coordination of care (as documented) at patient's floor/unit and/or counseling patient: Greater than 35 minutes (Critical care time) (1) Acute respiratory failure with hypoxia and hypercapnia Status: Acute Assessment and plan: * Acute hypoxic hypercapnic respiratory failure-secondary to COPD exacerbation. Clinical clinically improved on noninvasive ventilation. Gradually weaned off NIV this morning, improved ABGs. Continue bronchodilators and steroids and supplemental oxygen. Schedule outpatient pulmonology follow-up/PFTs on discharge * COPD exacerbation-continue steroids/bronchodilators/supplemental oxygen/outpatient pulmonary follow-up/PFTs * Anxiety disorder continue BuSpar/Effexor/benzodiazepine * History of gout continue febuxostat * Seasonal allergy disorder continue Zyrtec * Hypertension continue lisinopril * C/c pain - on home dose morphine * Full code * Prophylaxis heparin Plan * Transfer out of ICU once able to tolerate off NIV * Transition to oral steroid * Outpatient pulmonary/PFT consults/ Pulm rehab consult as OP * Prior medical condition management on home meds * PT OT/nutrition support * Wean oxygen as tolerated * Smoking cessation counseling * Discharge planning per case management Current Visit: Yes Medical - PN: Qual - VTE Deep Vein Thrombosis/Pulmonary Embolism Present on Admission: No
[2019-03-19] MEDS: VENLAFAXINE 150 MG CAP.XL.24H PO SCH ×2 (10:02→19:02)
[2019-03-19] MEDS: DOCUSATE SODIUM 100 MG CAPSULE PO SCH ×3 (10:02→20:32)
[2019-03-19] MEDS: busPIRone 5 MG TABLET PO SCH ×2 (10:02→19:02)
[2019-03-19] MEDS: FUROSEMIDE 40 MG TABLET PO SCH ×2 (10:03→19:03)
[2019-03-19] MEDS: FOLIC ACID 1 MG TABLET PO SCH ×2 (10:03→19:02)
[2019-03-19] MEDS: morphine 30 MG TAB.SR.12H PO SCH ×4 (10:04→20:32)
[2019-03-19] MEDS: LISINOPRIL 20 MG TABLET PO SCH ×2 (10:05→19:07)
[2019-03-19] MEDS: CETIRIZINE 10 MG TABLET PO SCH ×2 (10:06→19:07)
[2019-03-19] MEDS: Febuxostat [Uloric] 80 mg Tab PO SCH ×2 (10:50)
[2019-03-19] MEDS: LEVOFLOXACIN 750 MG/150 ML BAG IV SCH ×2 (10:51→15:54)
[2019-03-19] MEDS: MUPIROCIN OINT 2% 22GM NARES SCH ×3 (10:51→20:31)
--- NOTE | 2019-03-19 14:57 | General Surgery Consult Note ---
History of Present Illness Patient information: Note initiated : 03/19/19 at 2:53 pm Service Date, if different from initiated Date: [] Patient: Grace Canales 58 y/o F admitted on 03/17/19 for shortness of breathe. Chief Complaint: [] Consult date: 03/19/19 Requesting physician: John Paul Mims (Wound Care / Management) History of present illness: I saw this patient with Tram OLIVEROS, In Patient wound care nurse, room 106 today. CC: Admitted for SOB and hypoxia. Acute exacerbation of chronic disease against a background of continuing smoking habit. Undergoing treatments for COPD. She was noted to have traumatic wound Right mid bolivar area and an ulcerated wound of lower abdominal wall skin. She has h/o Chronic COPD and CHF. She is obese and smokes cigarettes. Sustained a traumatic wound of RIGHT mid bolivar area of leg in remote past. NOT healing. She has another abdominal wall skin and subcutaneous chronic ulcerated wound ( ?? Scratching ) Medications and Allergies Home Medications Medication Instructions Recorded Confirmed Type Albuterol Sulfate [Ventolin] 2 puff INH Q4HP PRN 03/17/19 03/17/19 History Aspirin 81 mg PO DAILY 03/17/19 03/17/19 History Cetirizine [ZyrTEC] 10 mg PO DAILY 03/17/19 03/17/19 History Febuxostat [Uloric] 80 mg PO QDAY 03/17/19 03/17/19 History Fluticasone/Salmeterol [Advair 1 puff INH BID 03/17/19 03/17/19 History 250-50 Diskus] Furosemide [Lasix] 20 mg PO BID 03/17/19 03/17/19 History HYDROcodone/APAP 10/325MG [[place] 1 tab PO Q12HP PRN 03/17/19 03/17/19 History 10-325Mg] LORazepam [Ativan] 2 mg PO BIDP PRN 03/17/19 03/17/19 History Lisinopril [Zestril] 30 mg PO DAILY 03/17/19 03/17/19 History Montelukast Sodium [Singulair] 10 mg PO HS 03/17/19 03/17/19 History Venlafaxine [Effexor Xr] 150 mg PO DAILY 03/17/19 03/17/19 History busPIRone [Buspar] 15 mg PO BIDP PRN 03/17/19 03/17/19 History morphine [Ms Contin] 60 mg PO TID 03/17/19 03/17/19 History tiZANidine [Zanaflex] 4 mg PO TIDP PRN 03/17/19 03/17/19 History Allergies Allergy/AdvReac Type Severity Reaction Status Date / Time No Known Drug Allergies Allergy Unverified 03/17/19 00:56 Exam Temp Pulse Resp BP Pulse Ox 97.1 F 80 18 118/76 90 03/19/19 12:00 03/19/19 11:43 03/19/19 12:00 03/19/19 12:00 03/19/19 12:00 - General physical appearance well developed, well nourished, moderate distress, obese - Eyes PERRL - ENT normal nares, normal mucosa, no congestion, other (Clear speech. ) - Head Head exam IM: Present: atraumatic, normocephalic - Neck trachea midline, no venous distension - Cardiovascular Cardiovascular exam IM: Present: normal rate and rhythm - Respiratory other (Shortness of breath and Orhtopnes improving with respiratory treatments. Air entry both lung bearden , but diminished at bases. ) - Abdomen Abdomen: Present: soft, bowel sounds (Obese and proturberent WITHOUT peritoneal signs.) - Integumentary Present: other (Chronic wounds with exposed adipose tissue and poor granualtion and mild pitting edema of surrounding skin and subcutaneous tiisue of RIGHT anterior mid leg area <6 Cm x 2 CM. and Lower Right quadrant of adominal wall . < 4 Cm. ) - Neurologic Present: normal coordination, other (Non focal neurological examination) - Musculoskeletal Present: normal posture, other (Ambuates without assistance. ) - Psychiatric Present: oriented to time, oriented to person, oriented to place, speech is normal Results - Labs 03/20/19 04:35 03/20/19 04:35 Abnormal lab results 03/19/19 03/19/19 Range/Units 03:55 03:55 WBC 14.5 H (4.5-11.0) K/mcL RDW 15.9 H (11.5-14.5) % Seg Neutrophils % 81 H (38-78) % Lymphocytes % 12 L (15-49) % Carbon Dioxide 34 H (22-30) mmol/L BUN 21 H (6-20) mg/dl Glucose 147 H (70-105) mg/dL GGT 159 H (5-36) U/L Alkaline Phosphatase 153 H (39-117) U/L Albumin 3.0 L (3.2-5.2) gm/dL Globulin 4.3 H (2.2-3.7) gm/dL Albumin/Globulin Ratio 0.7 L (1.0-2.3) Diabetes panel 03/19/19 Range/Units 03:55 Sodium 142 (133-145) mmol/L Potassium 4.0 (3.3-5.1) mmol/L Chloride 96 (96-108) mmol/L Carbon Dioxide 34 H (22-30) mmol/L BUN 21 H (6-20) mg/dl Creatinine 0.7 (0.6-1.1) mg/dl Glucose 147 H (70-105) mg/dL Calcium 9.7 (8.6-10.4) mg/dl AST 26 (0-37) U/l ALT 17 (0-40) U/l Alkaline Phosphatase 153 H (39-117) U/L Total Protein 7.3 (5.9-8.4) gm/dL Albumin 3.0 L (3.2-5.2) gm/dL Triglycerides 108 (<150) mg/dl Calcium panel 03/19/19 Range/Units 03:55 Calcium 9.7 (8.6-10.4) mg/dl Phosphorus 4.0 (2.7-4.5) mg/dL Albumin 3.0 L (3.2-5.2) gm/dL Pituitary panel 03/19/19 Range/Units 03:55 Sodium 142 (133-145) mmol/L Potassium 4.0 (3.3-5.1) mmol/L Chloride 96 (96-108) mmol/L Carbon Dioxide 34 H (22-30) mmol/L BUN 21 H (6-20) mg/dl Creatinine 0.7 (0.6-1.1) mg/dl Glucose 147 H (70-105) mg/dL Calcium 9.7 (8.6-10.4) mg/dl Adrenal panel 03/19/19 Range/Units 03:55 Sodium 142 (133-145) mmol/L Potassium 4.0 (3.3-5.1) mmol/L Chloride 96 (96-108) mmol/L Carbon Dioxide 34 H (22-30) mmol/L BUN 21 H (6-20) mg/dl Creatinine 0.7 (0.6-1.1) mg/dl Glucose 147 H (70-105) mg/dL Calcium 9.7 (8.6-10.4) mg/dl Total Bilirubin 0.3 (0.0-1.0) mg/dL AST 26 (0-37) U/l ALT 17 (0-40) U/l Alkaline Phosphatase 153 H (39-117) U/L Total Protein 7.3 (5.9-8.4) gm/dL Albumin 3.0 L (3.2-5.2) gm/dL All other labs normal. Assessment and Plan (1) Skin ulcer of abdomen Assessment and Plan: See wound care orders. Will follow up in clinic after discharge Status: Chronic Priority: Low Qualifiers: Non-pressure ulcer stage: with fat layer exposed Qualified Code(s): L98.492 - Non-pressure chronic ulcer of skin of other sites with fat layer exposed (2) Skin ulcer Status: Chronic Priority: Low Qualifiers: Non-pressure ulcer stage: with fat layer exposed Qualified Code(s): L98.492 - Non-pressure chronic ulcer of skin of other sites with fat layer exposed (3) Skin ulcer of right lower leg with fat layer exposed Assessment and Plan: See wound care orders. Will follow up in clinic after di scharge. Status: Chronic Priority: Low (4) Acute exacerbation of chronic obstructive airways disease Status: Acute Priority: High (5) Congestive heart failure Status: Acute (6) Acute respiratory failure with hypoxia and hypercapnia Status: Acute (7) Smoking addiction Status: Chronic Priority: Medium Comment: SPENT over 15 minutes in talking to patient and counseling her about smoking cessation. She verbalized understanding. Will continue thisfurther during follow up at clinic.
[2019-03-19] MEDS ORDERED: MONTELUKAST 10 MG TABLET PO SCH (21:00)
[2019-03-19] MEDS ORDERED: SENNOSIDES/DOCUSATE SODIUM 1 TAB TABLET PO SCH (21:00)
[2019-03-20] MEDS: IPRATROPIUM/ALBUTEROL 3 ML AMPUL.NEB NEB SCH ×3 (03:55→11:24)
[2019-03-20] MEDS: 0.9 % SODIUM CHLORIDE 10 ML SYRINGE IV SCH (06:33)
[2019-03-20 06:53] LABS: Hematocrit 44.7 % (36.0-48.0); Hemoglobin 14.5 g/dL (12.0-15.0); Mean Cell Volume 90.8 fL (80.0-100.0); Mean Corpuscular HGB Conc 32.5 g/dL (31.0-36.0); Mean Platelet Volume 9.1 fL (7.4-10.4); Platelet Count 233 K/mcL (140-440); RBC 4.92 M/mcL (4.00-5.20); Red Cell Distribution Width 15.8 % (11.5-14.5); WBC 9.1 K/mcL (4.5-11.0)
[2019-03-20] MEDS: BUDESONIDE 0.5 MG/2 ML AMPUL.NEB NEB SCH ×2 (06:54→07:29)
[2019-03-20 07:30] LABS: ALT/SGPT 20 U/l (0-40); AST/SGOT 26 U/l (0-37); Albumin 2.9 gm/dL (3.2-5.2); Albumin/Globulin Ratio 0.8 (1.0-2.3); Alkaline Phosphatase 108 U/L (39-117); Bilirubin,Direct < 0.2 mg/dL (0.0-0.3); Bilirubin,Total 0.4 mg/dL (0.0-1.0); Blood Urea Nitrogen 20 mg/dl (6-20); Calcium 9.2 mg/dl (8.6-10.4); Carbon Dioxide 36 mmol/L (22-30); Globulin 3.7 gm/dL (2.2-3.7); Glomerular Filtration Rate 102; Glucose 94 mg/dL (70-105); Lactate Dehydrogenase 149 U/L (94-250); Triglycerides 104 mg/dl (<150); Uric Acid 2.6 mg/dL (2.5-8.0)
[2019-03-20 07:34] LABS: Chloride 95 mmol/L (96-108)
[2019-03-20 08:20] LABS: Anisocytosis FEW (NONE SEEN); Band Neutrophils % 2 % (0-10); Lymphocytes % 29 % (15-49); Monocytes % (Manual) 3 % (1-12); Platelet Estimate NORMAL (NORMAL); RBC Morphology ABNORM (NORMAL); Reactive Lymphocytes 1 % (0-2); Segmented Neutrophils % 65 % (38-78)
[2019-03-20] MEDS: ASPIRIN 81 MG TAB.CHEW PO SCH (08:56)
[2019-03-20] MEDS: DOCUSATE SODIUM 100 MG CAPSULE PO SCH (08:57)
[2019-03-20] MEDS: VENLAFAXINE 150 MG CAP.XL.24H PO SCH (08:57)
[2019-03-20] MEDS: FOLIC ACID 1 MG TABLET PO SCH (08:57)
[2019-03-20] MEDS: FUROSEMIDE 40 MG TABLET PO SCH (08:57)
[2019-03-20] MEDS: MUPIROCIN OINT 2% 22GM NARES SCH (08:57)
[2019-03-20] MEDS: HEPARIN 5,000 UNIT/ML VIAL SQ SCH (08:57)
[2019-03-20] MEDS: busPIRone 5 MG TABLET PO SCH (08:57)
[2019-03-20] MEDS: morphine 30 MG TAB.SR.12H PO SCH (08:58)
[2019-03-20] MEDS: MULTIVIT,THER IRON,CA,FA & MIN 1 TABLET PO SCH (08:58)
[2019-03-20] MEDS: LEVOFLOXACIN 750 MG/150 ML BAG IV SCH (08:58)
[2019-03-20] MEDS: Febuxostat [Uloric] 80 mg Tab PO SCH (08:59)
[2019-03-20] MEDS: THIAMINE 100 MG TABLET PO SCH (09:02)
[2019-03-20] MEDS: methylPREDNISolone SOD SUCC 125 MG/2 ML VIAL IV SCH (09:02)
[2019-03-20] MEDS: LISINOPRIL 20 MG TABLET PO SCH (09:02)
[2019-03-20] MEDS: CETIRIZINE 10 MG TABLET PO SCH (09:03)
--- NOTE | 2019-03-20 11:07 | Discharge Summary ---
Medical - DS: Prov Patient information: Note initiated : 03/20/19 at 11:03 am Service Date, if different from initiated Date: [] Patient: Grace Canales 58 y/o F admitted on 03/17/19 for shortness of breathe. Chief Complaint: [] Date of admission: 03/17/19 03:22 Discharge date: 03/20/19 Consults: 03/17/19 Consult to Physician [CONS] Stat Comment: Consulting Provider: John Paul Mims Reason For Exam: Physician to Consult 03/19/19 11:08 Consult to Physician [CONS] Routine Comment: Consulting Provider: Jerel Grady Reason For Exam: Physician to Consult 03/19/19 11:36 Consult to Physician [CONS] Routine Comment: wounds to right leg, abdomen Consulting Provider: Jerel Grady Reason For Exam: Physician to Consult Medical - DS: Meds - Discharge Medications Prescriptions: predniSONE [Deltasone] 40 mg PO DAILY #10 tab Transmission Status: Pending to [facility] Ipratropium/Albuterol [Duoneb] 3 ml NEB Q4HP PRN #30 ampul.neb PRN Reason: Shortness Of Breath Transmission Status: Pending to [facility] Levofloxacin [Levaquin] 750 mg PO DAILY #3 tab Transmission Status: Pending to [facility] Budesonide [Pulmicort] 0.5 mg NEB Q12 #30 ampul.neb Transmission Status: Pending to [facility] Active and Home Medications: Home Medications Albuterol Sulfate [Ventolin] 2 puff INH Q4HP PRN 03/17/19 [History Confirmed 03/17/19 Last Taken Unknown] Aspirin 81 mg PO DAILY 03/17/19 [History Confirmed 03/17/19 Last Taken Unknown] Cetirizine [Zyrtec] 10 mg PO DAILY 03/17/19 [History Confirmed 03/17/19 Last Ta paramjit Unknown] Febuxostat [Uloric] 80 mg PO QDAY 03/17/19 [History Confirmed 03/17/19 Last Taken Unknown] Fluticasone/Salmeterol [Advair 250-50 Diskus] 1 puff INH BID 03/17/19 [History Confirmed 03/17/19 Last Taken Unknown] Furosemide [Lasix] 20 mg PO BID 03/17/19 [History Confirmed 03/17/19 Last Taken Unknown] HYDROcodone/APAP 10/325MG [[place] 10-325Mg] 1 tab PO Q12HP PRN 03/17/19 [History Confirmed 03/17/19 Last Taken Unknown] LORazepam [Ativan] 2 mg PO BIDP PRN 03/17/19 [History Confirmed 03/17/19 Last Taken Unknown] Lisinopril [Zestril] 30 mg PO DAILY 03/17/19 [History Confirmed 03/17/19 Last Taken Unknown] Montelukast Sodium [Singulair] 10 mg PO HS 03/17/19 [History Confirmed 03/17/19 Last Taken Unknown] Venlafaxine [Effexor Xr] 150 mg PO DAILY 03/17/19 [History Confirmed 03/17/19 Last Taken Unknown] busPIRone [Buspar] 15 mg PO BIDP PRN 03/17/19 [History Confirmed 03/17/19 Last Taken Unknown] morphine [Ms Contin] 60 mg PO TID 03/17/19 [History Confirmed 03/17/19 Last Taken Unknown] tiZANidine [Zanaflex] 4 mg PO TIDP PRN 03/17/19 [History Confirmed 03/17/19 Last Taken Unknown] Budesonide [Pulmicort] 0.5 mg NEB Q12 #30 ampul.neb 03/20/19 [Rx Last Taken Unknown] Ipratropium/Albuterol [Duoneb] 3 ml NEB Q4HP PRN #30 ampul.neb 03/20/19 [Rx Last Taken Unknown] Levofloxacin [Levaquin] 750 mg PO DAILY #3 tab 03/20/19 [Rx Last Taken Unknown] predniSONE [Deltasone] 40 mg PO DAILY #10 tab 03/20/19 [Rx Last Taken Unknown] Medical - DS: Hosp Hospital Course: Discharge diagnosis * Acute hypoxic hypercapnic respiratory failure-secondary to COPD exacerbation. Clinically resolved. Now off noninvasive mechanical ventilation. On 2 L oxygen. * COPD exacerbation-clinically resolved. Continue bronchodilators and steroids. Recommend outpatient pulmonology follow-up/PFTs on discharge along with continuation of smoking cessation and outpatient pulmonary high program enrollment * Anxiety disorder continue BuSpar/Effexor/benzodiazepine * History of gout continue febuxostat * Seasonal allergy disorder continue Zyrtec * Hypertension continue lisinopril * C/c pain - on home dose morphine Brief hospital course Ms. Canales is a 58 year old F active smoker and with a known history of COPD who presents with 4 days onset of worsening shortness of breath along progressive orthopnea and inability to perform activities of daily living. Patient normally uses inhalers but with minimal relief. She is up-to-date on pneumonia and flu vaccine. She however continues to smoke and stopped 4 days ago with onset of symptoms. She denies associated fever but endorses a yellow productive sputum. She denies diarrhea dysuria joint pain headache, rash, shaking chills. She presents to the ER with above symptoms. Initial work-up was consistent with COPD exacerbation with sats mid 60s. Patient was started on BiPAP along with steroids and bronchodilators. Subsequently hospitalist service was consulted. At the time of evaluation patient is currently on BiPAP. Now able to talk and answer questions. She appears remarkably distress. She is tachycardic. She denies sick contacts. 03/18-patient clinically improved however continues to be on noninvasive ventilation. Improved work of breathing/hypoxia. Continuing steroids and bronchodilators. Counseled for smoking cessation. Restarted back on home medications. Continue weaning noninvasive ventilation 03/19-patient clinically improved. Now off BiPAP since morning. Transfer out of ICU. Continue steroids and bronchodilators. Anticipate discharge in 48 hours once clinically improved. Continue weaning oxygen. Smoking cessation counseling. Antibiotic coverage. 03/20-patient doing well. No overnight events. Currently on 2 L oxygen. Ambulating. Improved work of breathing. Recommend outpatient PFT/follow-up with pulmonology. Patient also would benefit from outpatient pulmonary rehab program. Primary care physician to coordinate. Recommend smoking cessation continuation Discharge diagnosis: . - Time Spent with Patient Total time spent providing and/or coordinating discharge services: Greater than 30 minutes Medical - DS: Exam - Constitutional Vitals: Vital Signs Temp Pulse Pulse Resp BP BP Pulse Ox 03/20/19 08:18 97.5 F 20 125/70 90 03/20/19 07:46 20 03/20/19 07:33 90 03/20/19 07:31 90 20 90 03/20/19 07:00 90 20 03/20/19 03:55 98.0 F 75 16 110/67 91 03/19/19 23:30 97.5 F 77 16 115/64 90 03/19/19 23:26 78 20 03/19/19 19:58 97.6 F 75 14 100/55 88 L 03/19/19 18:45 88 20 03/19/19 16:00 96.7 F L 16 110/55 90 03/19/19 15:40 78 20 92 03/19/19 12:00 97.1 F 18 118/76 90 03/19/19 11:43 80 14 Intake and Output 03/19/19 03/20/19 03/20/19 21:59 05:59 13:59 Intake Total 360 400 113 Balance 360 400 113 Intake: IV 113 Oral 360 400 Other: Meal Lunch Percent of Meal Consumed 75% Feeding Ability Independent # Voids 1 1 Weight 249 lb 12.8 oz Medical - DS: Data Labs on day of discharge: Labs from last 24 hours 03/20/19 03/20/19 04:35 04:35 WBC 9.1 RBC 4.92 Hgb 14.5 Hct 44.7 MCV 90.8 MCH 29.5 MCHC 32.5 RDW 15.8 H Plt Count 233 MPV 9.1 Total Counted 100 Seg Neutrophils % 65 Band Neutrophils % 2 Lymphocytes % 29 Monocytes % (Manual) 3 Reactive Lymphocytes 1 Platelet Estimate Normal RBC Morphology Abnorm A Anisocytosis Few A Sodium 141 Potassium 3.3 Chloride 95 L Carbon Dioxide 36 H Anion Gap 10.0 BUN 20 Creatinine 0.6 GFR Calculation 102 Glucose 94 Uric Acid 2.6 Calcium 9.2 Phosphorus 4.0 Magnesium 2.1 Total Bilirubin 0.4 Direct Bilirubin < 0.2 GGT 193 H AST 26 ALT 20 Alkaline Phosphatase 108 Lactate Dehydrogenase 149 Total Protein 6.6 Albumin 2.9 L Globulin 3.7 Albumin/Globulin Ratio 0.8 L Triglycerides 104 Preliminary micro results at discharge 03/17/19 01:18 Blood Culture - Preliminary Blood 03/17/19 01:27 Blood Culture - Preliminary Blood Medical - DS: A/P - Patient/Caregiver Discharge Instructions Activity: increase activity as tolerated Diet: Regular Diet Additional Instructions: Continue home oxygen at 2 L Continue prednisone for additional 5 days Continue oral levofloxacin for 3 days Follow-up primary care physician in 5 to 7 days I recommend following up with pulmonology/outpatient PFT in 2 to 4 weeks Also recommend outpatient pulmonary rehab program to be coordinated by primary care physician Return to ER if worsening fever chills shortness of breath Refrain from smoking Prescriptions: predniSONE [Deltasone] 40 mg PO DAILY #10 tab Transmission Status: Pending to [facility] Ipratropium/Albuterol [Duoneb] 3 ml NEB Q4HP PRN #30 ampul.neb PRN Reason: Shortness Of Breath Transmission Status: Pending to [facility] Levofloxacin [Levaquin] 750 mg PO DAILY #3 tab Transmission Status: Pending to [facility] Budesonide [Pulmicort] 0.5 mg NEB Q12 #30 ampul.neb Transmission Status: Pending to [facility] - Problem Maintenance (1) Acute respiratory failure with hypoxia and hypercapnia Status: Acute - Follow up Plan Follow up with: Jerel Grady MD [Physician] - (follow up at wound healing center as new patient for venous wound) Ivone Mayer ARNP [Referring] - (Please call to reschedule your appointment .) Disposition: Home, Self-Care Prognosis: Undetermined Rehab Potential: Fair I certify that the patient requires SNF services: No Overall status at discharge: patient is progressing back to baseline Medical - DS: Qual - VTE Deep Vein Thrombosis/Pulmonary Embolism Present on Admission: No
== END 2019-03-20 13:35 | disposition home or self-care (01) | DRG 190 ==
LOC: ED 00:49 → ICU 03:22 → MEDSUR 03-19 08:53
PROVIDERS: ADMIT Internal Medicine; ATTEND Internal Medicine

== ENCOUNTER 2019-04-22 14:22 | Inpatient (IN) ==
[2019-04-22] MEDS ORDERED: IOPAMIDOL 100 ML BOTTLE IV ONE (14:23)
[2019-04-22] MEDS ORDERED: methylPREDNISolone SOD SUCC 125 MG/2 ML VIAL IV ONE (14:50)
[2019-04-22] MEDS ORDERED: IPRATROPIUM/ALBUTEROL 3 ML AMPUL.NEB NEB ONE ×3 (14:50→18:58)
--- NOTE | 2019-04-22 15:05 | Emergency Department Note ---
SOB HPI - General Chief Complaint: Shortness of Breath/Dyspnea Stated Complaint: SOB Time Seen by Provider: 04/22/19 14:42 Source: patient Mode of arrival: EMS Limitations: physical limitation - History of Present Illness 58-year-old female patient presents emergency department with chief complaint of worsening shortness of breath, dyspnea, and hypoxia. Patient has a known history of COPD with excessive exacerbations. She was recently hospitalized at our facility and discharged on 03/20/2019. During hospitalization she was diagnosed with acute hypoxic hypercapnic respiratory failure secondary to COPD, anxiety, hypertension, chronic pain. She admits since discharge that she has done well for approximately 2 weeks. Unfortunately over the last 2 weeks she h as done more poorly. Over the last 5 days she has been experiencing worsening shortness of breath. She has a home SPO2 and is noticed considerable hypoxia with any type of physical activity. She is currently wearing her oxygen daily at 3 L/min via nasal cannula. She continues to smoke but "I have cut way back". She denies sputum production. She denies was, sweats, chills. She denies any congestion runny nose. She denies retrosternal chest pain or palpitations. She denies abdominal pain, nausea, vomiting, or diarrhea. She admits to ongoing lower extremity edema. She admits to orthopnea. She admits to generalized weakness. She denies focal weakness. She admits to ongoing skin ulcerations and is being followed by the wound care clinic. She denies being seen by program director cable television yet. Review of her active problems shows the following: Acute COPD exacerbation, CHF, acute respiratory failure, skin ulcers, and smoking addiction. - Related Data Home Medications Medication Instructions Recorded Confirmed Albuterol Sulfate [Ventolin] 2 puff INH Q4HP PRN 03/17/19 04/22/19 Aspirin 81 mg PO DAILY 03/17/19 04/22/19 Cetirizine [Zyrtec] 10 mg PO DAILY 03/17/19 04/22/19 Febuxostat [Uloric] 80 mg PO QDAY 03/17/19 04/22/19 Fluticasone/Salmeterol [Advair 1 puff INH BID 03/17/19 04/22/19 250-50 Diskus] Furosemide [Lasix] 20 mg PO BID 03/17/19 04/22/19 HYDROcodone/APAP 10/325MG [[place] 1 tab PO Q12HP PRN 03/17/19 04/22/19 10-325Mg] LORazepam [Ativan] 2 mg PO BIDP PRN 03/17/19 04/22/19 Lisinopril [Zestril] 30 mg PO DAILY 03/17/19 04/22/19 Montelukast Sodium [Singulair] 10 mg PO HS 03/17/19 04/22/19 Venlafaxine [Effexor Xr] 150 mg PO DAILY 03/17/19 04/22/19 busPIRone [Buspar] 15 mg PO BIDP PRN 03/17/19 04/22/19 morphine [Ms Contin] 60 mg PO TID 03/17/19 04/22/19 tiZANidine [Zanaflex] 4 mg PO TIDP PRN 03/17/19 04/22/19 Previous Rx's Medication Instructions Recorded Budesonide [Pulmicort] 0.5 mg NEB Q12 #30 ampul.neb 03/20/19 Ipratropium/Albuterol [Duoneb] 3 ml NEB Q4HP PRN #30 ampul.neb 03/20/19 Levofloxacin [Levaquin] 750 mg PO DAILY #3 tab 03/20/19 Nebulizer [Aeroeclipse II] 1 each MC QID 999 Days #1 each 03/20/19 predniSONE [Deltasone] 40 mg PO DAILY #10 tab 03/20/19 Allergies Allergy/AdvReac Type Severity Reaction Status Date / Time No Known Drug Allergies Allergy Unverified 03/17/19 00:56 Review of Systems All systems ED: reviewed and negative except as stated. Past Medical History - Past Medical History Medical history: Reports: CHF, COPD - Social History smoking status: Current every day smoker Physical Exam Limitations: no limitations, physical limitation General appearance: alert, anxious, in distress (In moderate respiratory distress.) Head: atraumatic, normocephalic Eye: Present: PERRL, EOMI. Absent: scleral icterus ENT: Present: normal oropharynx, mucous membranes moist. Absent: nasal congestion Neck: Present: trachea midline. Absent: lymphadenopathy, thyromegaly Chest: Present: symmetric chest wall rise Respiratory: Present: respiratory distress, wheezes, prolonged expiratory phase, decreased breath sounds (Considerably decreased breath sounds throughout the chest. Mild expiratory wheezing heard to the left upper lobe on exam.). Absent: rales/crackles, stridor, accessory muscle use Cardiovascular: Present: regular rate, normal rhythm. Absent: systolic murmur, diastolic murmur Abdominal: Present: soft. Absent: distention, tenderness, guarding, rebound, rigidity Extremities: Present: normal inspection, tenderness (Tenderness to right lower extremity secondary to a skin ulceration.), pedal edema (+1+2 pitting edema to bilateral ankles extending to mid calf.). Absent: normal capillary refill (Less than 3 seconds.) Back: Present: full ROM. Absent: tenderness Neurological: Present: alert, oriented X3 Psychiatric: Present: normal affect, normal mood Skin: Present: warm, dry Course Course Narrative: Patient was brought into the emergency department and a history and physical exam performed. Saline lock was established laboratory studies were drawn. Two-view chest x-ray was obtained and reviewed. Patient was given DuoNeb breathing treatment and Solu-Medrol 125 mg IVP. Upon reevaluation patient is moving a bit more air during auscultation. She continues to be hypoxic with SPO2 89-90% on 6 L via nasal cannula. Chest x-ray showed possible developing pulmonary edema. I reviewed the films with my collaborating physician (Dr. Dukes). At this time patient is going to be sent for a chest CT scan. Repeat DuoNeb treatment was provided. A review of her laboratory studies show the following: CBC within normal limits. CMP chloride 88, carbon dioxide 35, creatinine 0.5, glucose 114, albumin 3.1, globulin 4.5, all others within normal limits. Lactic acid 0.9. proBNP less than 50. Procalcitonin less than 0.10. Arterial blood gas showing pH 7.42, PCO2 67, PO2 49, HCO3 43.5. Two-view chest x-ray showed moderate right upper and middle lobe infiltrates with small patchy lingular infiltrate. This is new from previous x-ray during her hospitalization in March. She had underlying COPD. Radiologist also mentioned bilateral hilar enlargement which could indicate adenopathy. He recommended follow-up chest CT scan. She CT scan was ordered and reviewed showing moderate chronic bronchitis with moderate patchy alveolar infiltrates towards the right upper and lower lobes. Radiologist also mentioned that moderately enlarged lymph nodes in the lower mediastinum and hilum. He recommended follow-up pulmonary referral for transbronchial biopsy. After reviewing all the data I discussed these findings with the patient. At this time she is profoundly hypoxic and suffering from a COPD exacerbation. She is going to need hospitalization for ongoing management. With this in mind, I reached out to the hospitalist (Dr. Anne) about the patient's need for admission. At this time Dr. Anne has consented to receive the patient into the hospital. All further treatment decision and modalities to be carried out by Dr. Anne. Vital Signs Temperature 97.5 F 04/22/19 14:25 Pulse Rate 100 H 04/22/19 14:25 Respiratory Rate 24 H 04/22/19 14:25 Blood Pressure 100/70 04/22/19 14:25 Pulse Oximetry (%) 87 L 04/22/19 14:25 Temperature 97.5 F 04/22/19 14:25 Pulse Rate 76 04/22/19 17:30 Respiratory Rate 15 04/22/19 16:38 Blood Pressure 107/59 04/22/19 17:30 Pulse Oximetry (%) 93 04/22/19 17:30 Shortness of Breath/Dyspnea - Lab Data Lab results reviewed: Yes I reviewed the patient's lab results. Result diagrams: 04/22/19 15:13 04/22/19 15:12 Lab Results 04/22/19 04/22/19 04/22/19 Range/Units 15:10 15:10 15:12 WBC (4.5-11.0) K/mcL RBC (4.00-5.20) M/mcL Hgb (12.0-15.0) g/dL Hct (36.0-48.0) % POC Hct (36.0-48.0) % MCV (80.0-100.0) fL MCH (26.0-34.0) pg MCHC (31.0-36.0) g/dL RDW (11.5-14.5) % Plt Count (140-440) K/mcL MPV (7.4-10.4) fL Gran % (38.0-78.0) % Lymph % (Auto) (15.5-49.0) % [place]wey % (Auto) (1.0-12.0) % Eos % (Auto) (0.0-7.0) % Baso % (Auto) (0.0-2.0) % Gran # (1.8-8.0) K/mcL Lymph # (Auto) (1.5-4.8) K/mcL [place]wey # (Auto) (0.1-0.9) K/mcL Eos # (Auto) (0.0-0.7) K/mcL Baso # (Auto) (0.0-0.3) K/mcL VBG Lactic Acid 0.9 (0.5-2.0) mmol/L POC Sodium (133-145) mmol/L Sodium 135 (133-145) mmol/L POC Potassium (3.3-5.1) mmol/L Potassium 4.0 (3.3-5.1) mmol/L POC Chloride (96-108) mmol/L Chloride 88 L (96-108) mmol/L Carbon Dioxide 35 H (22-30) mmol/L POC Total CO2 (22-30) mmol/L Anion Gap 12.0 (8-16) POC BUN (6-20) mg/dl BUN 8 (6-20) mg/dl Creatinine 0.5 L (0.6-1.1) mg/dl POC Creatinine (0.6-1.1) mg/dl GFR Calculation 108 Glucose 114 H (70-105) mg/dL POC Glucose (70-105) mg/dL Calcium 9.8 (8.6-10.4) mg/dl POC WB Ioniz Calcium (1.16-1.32) mmol/L Total Bilirubin 0.3 (0.0-1.0) mg/dL AST 16 (0-37) U/l ALT 9 (0-40) U/l Alkaline Phosphatase 97 (39-117) U/L NT-Pro-B Natriuret Pep < 50.0 (0-125) pg/ml Total Protein 7.6 (5.9-8.4) gm/dL Albumin 3.1 L (3.2-5.2) gm/dL Globulin 4.5 H (2.2-3.7) gm/dL Albumin/Globulin Ratio 0.7 L (1.0-2.3) Procalcitonin < 0.10 (<0.10) ng/mL 12/17/19 12/17/19 Range/Units 15:13 15:50 WBC 10.9 (4.5-11.0) K/mcL RBC 4.94 (4.00-5.20) M/mcL Hgb 14.4 (12.0-15.0) g/dL Hct 44.1 (36.0-48.0) % POC Hct 47.0 (36.0-48.0) % MCV 89.3 (80.0-100.0) fL MCH 29.2 (26.0-34.0) pg MCHC 32.7 (31.0-36.0) g/dL RDW 17.3 H (11.5-14.5) % Plt Count 319 (140-440) K/mcL MPV 9.3 (7.4-10.4) fL Gran % 63.7 (38.0-78.0) % Lymph % (Auto) 21.0 (15.5-49.0) % [place]wey % (Auto) 9.0 (1.0-12.0) % Eos % (Auto) 5.6 (0.0-7.0) % Baso % (Auto) 0.7 (0.0-2.0) % Gran # 6.9 (1.8-8.0) K/mcL Lymph # (Auto) 2.3 (1.5-4.8) K/mcL [place] # (Auto) 1.0 H (0.1-0.9) K/mcL Eos # (Auto) 0.6 (0.0-0.7) K/mcL Baso # (Auto) 0.1 (0.0-0.3) K/mcL VBG Lactic Acid (0.5-2.0) mmol/L POC Sodium 137 (133-145) mmol/L Sodium (133-145) mmol/L POC Potassium 3.6 (3.3-5.1) mmol/L Potassium (3.3-5.1) mmol/L POC Chloride 88 L (96-108) mmol/L Chloride (96-108) mmol/L Carbon Dioxide (22-30) mmol/L POC Total CO2 39 H (22-30) mmol/L Anion Gap (8-16) POC BUN 8 (6-20) mg/dl BUN (6-20) mg/dl Creatinine (0.6-1.1) mg/dl POC Creatinine 0.5 L (0.6-1.1) mg/dl GFR Calculation Glucose (70-105) mg/dL POC Glucose 115 H (70-105) mg/dL Calcium (8.6-10.4) mg/dl POC WB Ioniz Calcium 1.15 L (1.16-1.32) mmol/L Total Bilirubin (0.0-1.0) mg/dL AST (0-37) U/l ALT (0-40) U/l Alkaline Phosphatase (39-117) U/L NT-Pro-B Natriuret Pep (0-125) pg/ml Total Protein (5.9-8.4) gm/dL Albumin (3.2-5.2) gm/dL Globulin (2.2-3.7) gm/dL Albumin/Globulin Ratio (1.0-2.3) Procalcitonin (<0.10) ng/mL - Radiology Data Radiology results reviewed: Yes I reviewed the patient's radiology results. Ordering Physician: Micha Bellamy PA-C Date of Service: 04/22/19 Procedure(s): XR chest 2V Accession Number(s): [id number] IMPRESSION: Moderate right upper and middle lobe infiltrates. Small patchy lingular infiltrate. All new from prior x-ray Underlying COPD Bilateral hilar enlargement which could indicate adenopathy. Follow-up chest CT will be performed. Ordering Physician: Micha Bellamy PA-C Date of Service: 04/22/19 Procedure(s): CT chest w con Accession Number(s): [id number] IMPRESSION: 1. Moderate chronic bronchitis with moderate patchy alveolar infiltrates in the right upper middle and lower lobes with smaller patchy infiltrate in the left upper lobe and lingula. Suspect infection, aspiration or chronic inflammation due to sarcoid or other chronic inflammatory process. The central pulmonary arteries are mildly enlarged compatible with pulmonary hypertension related to chronic lung disease 2. Moderately enlarged lymph nodes in lower mediastinum and hilum. The possibility of sarcoidosis or non-Hodgkin's lymphoma should be entertained. Suggest pulmonary referral for transbronchial biopsy of one of the lymph nodes. Interpreted and Authenticated by: Albin Lynn 04/22/19 - EKG Data EKG attestation: Yes I reviewed and interpreted this EKG., Yes There are no EKG findings of acute coronary syndrome, Yes This EKG will be read by implementation specialist payroll Disposition Pt seen by OUTSOLE BEVELER/PA only: Yes Clinical Impression: Acute exacerbation of chronic obstructive airways disease Community acquired pneumonia Qualifiers: Laterality: unspecified laterality Qualified Code(s): J18.9 - Pneumonia, unspecified organism Disposition: Xfer As Inpt ([facility]) Condition: Fair Additional Instructions: Patient is being admitted to the hospital under the care of Dr. Anne (hospitalist). All further treatment decisions and modalities were carried out by Dr. Anne. Referrals: Ivone Mayer ARNP [Primary Care Provider] - Time of Disposition: 17:41
--- NOTE | 2019-04-22 15:43 | XRay Report ---
CLINICAL INFORMATION: 58 y/o F. Worsening SOB, hypoxia. COMPARISON: 03/18/2019 FINDINGS: The heart is mildly enlarged but unchanged. Bilateral hilar enlargement is unchanged since exams dating back one month however long-term chronicity cannot be confirmed. COPD noted. There is moderate patchy infiltrate in the right middle and upper lobes which are new. Smaller patchy lingular infiltrate is developed IMPRESSION: Moderate right upper and middle lobe infiltrates. Small patchy lingular infiltrate. All new from prior x-ray Underlying COPD Bilateral hilar enlargement which could indicate adenopathy. Follow-up chest CT will be performed. Interpreted and Authenticated by: Albin Lynn 04/22/19
[2019-04-22 15:50] LABS: Basophils # (Auto) 0.1 K/mcL (0.0-0.3); Basophils % (Auto) 0.7 % (0.0-2.0); Eosinophils # (Auto) 0.6 K/mcL (0.0-0.7); Eosinophils % (Auto) 5.6 % (0.0-7.0); Granulocytes % (Auto) 63.7 % (38.0-78.0); Hematocrit 44.1 % (36.0-48.0); Hemoglobin 14.4 g/dL (12.0-15.0); Lymphocytes # (Auto) 2.3 K/mcL (1.5-4.8); Mean Cell Volume 89.3 fL (80.0-100.0); Mean Corpuscular HGB Conc 32.7 g/dL (31.0-36.0); Mean Platelet Volume 9.3 fL (7.4-10.4); Platelet Count 319 K/mcL (140-440); RBC 4.94 M/mcL (4.00-5.20); Red Cell Distribution Width 17.3 % (11.5-14.5); WBC 10.9 K/mcL (4.5-11.0)
[2019-04-22 16:09] LABS: proBNP < 50.0 pg/ml (0-125)
[2019-04-22 16:11] LABS: ALT/SGPT 9 U/l (0-40); AST/SGOT 16 U/l (0-37); Albumin 3.1 gm/dL (3.2-5.2); Albumin/Globulin Ratio 0.7 (1.0-2.3); Alkaline Phosphatase 97 U/L (39-117); Bilirubin,Total 0.3 mg/dL (0.0-1.0); Blood Urea Nitrogen 8 mg/dl (6-20); Calcium 9.8 mg/dl (8.6-10.4); Carbon Dioxide 35 mmol/L (22-30); Globulin 4.5 gm/dL (2.2-3.7); Glomerular Filtration Rate 108; Glucose 114 mg/dL (70-105)
[2019-04-22 16:13] LABS: Chloride 88 mmol/L (96-108)
[2019-04-22 16:26] LABS: POC Blood Urea Nitrogen 8 mg/dl (6-20); POC CO2 39 mmol/L (22-30); POC Calcium, Ionized 1.15 mmol/L (1.16-1.32); POC Chloride 88 mmol/L (96-108); POC Creatinine 0.5 mg/dl (0.6-1.1); POC Glucose, Random 115 mg/dL (70-105); POC Potassium 3.6 mmol/L (3.3-5.1); POC Sodium 137 mmol/L (133-145)
--- NOTE | 2019-04-22 17:25 | Internal Med History&Physical ---
Medical - H&P: HPI Patient information: Note initiated : 04/22/19 at 5:23 pm Service Date, if different from initiated Date: [] Patient: Grace Canales 58 y/o F admitted on for Shortness of breath. Chief Complaint: [] History of present illness: This is a 58-year-old female known history of COPD and active smoker was brought to the ER because of worsening shortness of breath for the last few days patient continues to smoke and she reported smoking 7 to 10 cigarettes during the last week. Patient used her home inhaler without much improvement she was recently discharged from the hospital following a COPD exacerbation treatment. She denied any fever or chills she was evaluated in the ER and found to be pr ofoundly hypoxic requiring BiPAP she underwent ABG which showed PCO2 well compensated with a pH of 7.42 but profoundly hypoxic 46. She was started on BiPAP and admitted to our facility for further management. - Constitutional Constitutional: Present: lethargy, snoring, weakness, weight gain - EENT Eyes: Absent: blurry vision, change in vision, decreased night vision, diplopia, discharge Ears: Present: as per HPI. Absent: decreased hearing, ear discharge, ear pain Nose, mouth and throat: Absent: abnormal hearing, bleeding gums, change in voice - Cardiovascular Cardiovascular: Present: dyspnea, dyspnea on exertion, edema, leg edema, orthopnea. Absent: chest pain at rest, chest pain with activity, claudication - Respiratory Respiratory: Present: cough, dyspnea, dyspnea on exertion, wheezing, chest congestion. Absent: hemoptysis - Gastrointestinal Gastrointestinal: Absent: abdominal pain, change in bowel habits, change in stool character, coffee ground emesis, constipation - Genitourinary Genitourinary: Absent: difficulty urinating, difficulty voiding, dysmenorrhea, dysuria - Neurological Neurological: Present: dizziness. Absent: abnormal speech, behavioral changes, burning sensations, confusion, convulsions, frequent falls - Psychiatric Psychiatric: Present: abnormal sleep pattern, anxiety, difficulty concentrating. Absent: depression, hallucinations Medical - H&P: PMH Medical history: Systolic heart failure with ejection fraction of 30% based on echocardiogram a month ago COPD Anxiety Essential hypertension Gout Surgical history: Patient denied any major surgical history Pertinent family history: No pertinent family history provided no history of any malignancy Smoking status: Current some day smoker Have you smoked in the last 12 months: Yes Time spent discussing smoking cessation with patient: more than 10 minutes Drug use: none Alcohol use: rarely Medical - H&P: Meds Home Medications Medication Instructions Recorded Confirmed Type Albuterol Sulfate [Ventolin] 2 puff INH Q4HP PRN 03/17/19 04/22/19 History Aspirin 81 mg PO DAILY 03/17/19 04/22/19 History Cetirizine [Zyrtec] 10 mg PO DAILY 03/17/19 04/22/19 History Febuxostat [Uloric] 80 mg PO QDAY 03/17/19 04/22/19 History Fluticasone/Salmeterol [Advair 1 puff INH BID 03/17/19 04/22/19 History 250-50 Diskus] Furosemide [Lasix] 20 mg PO BID 03/17/19 04/22/19 History HYDROcodone/APAP 10/325MG [[place] 1 tab PO Q12HP PRN 03/17/19 04/22/19 History 10-325Mg] LORazepam [Ativan] 2 mg PO BIDP PRN 03/17/19 04/22/19 History Lisinopril [Zestril] 30 mg PO DAILY 03/17/19 04/22/19 History Montelukast Sodium [Singulair] 10 mg PO HS 03/17/19 04/22/19 History Venlafaxine [Effexor Xr] 150 mg PO DAILY 03/17/19 04/22/19 History busPIRone [Buspar] 15 mg PO BIDP PRN 03/17/19 04/22/19 History morphine [Ms Contin] 60 mg PO TID 03/17/19 04/22/19 History tiZANidine [Zanaflex] 4 mg PO TIDP PRN 03/17/19 04/22/19 History Budesonide [Pulmicort] 0.5 mg NEB Q12 #30 ampul.neb 03/20/19 04/22/19 Rx Ipratropium/Albuterol [Duoneb] 3 ml NEB Q4HP PRN #30 ampul.neb 03/20/19 04/22/19 Rx Levofloxacin [Levaquin] 750 mg PO DAILY #3 tab 03/20/19 04/22/19 Rx Nebulizer [Aeroeclipse II] 1 each MC QID 999 Days #1 each 03/20/19 04/22/19 Rx predniSONE [Deltasone] 40 mg PO DAILY #10 tab 03/20/19 04/22/19 Rx Allergies Allergy/AdvReac Type Severity Reaction Status Date / Time No Known Drug Allergies Allergy Unverified 03/17/19 00:56 Medical - H&P: Exam - Constitutional Vitals: Temp Pulse Resp BP Pulse Ox 97.5 F 81 15 100/70 94 04/22/19 14:25 04/22/19 16:46 04/22/19 16:38 04/22/19 14:31 04/22/19 16:46 General appearance: moderate distress, obese - Head Head exam: Present: atraumatic, normal inspection, normocephalic - Expanded Head Exam Head exam: Absent: abrasion, Epps's sign, contusion - Eye Eye exam: Present: conjunctival injection. Absent: nystagmus, periorbital swelling, periorbital tenderness - ENT ENT exam: Present: mucous membranes dry, normal exam, normal external ear exam, normal oropharynx - Expanded ENT Exam Ear exam: Absent: auricular hematoma, auricular trauma, external canal tenderness Nose & sinuses exam: Present: external nose, grossly normal, nasal mucusa, septum and turbinates normal, sinuses non tender to palpatation Mouth exam: Present: dry mucosa. Absent: drooling, laceration - Respiratory Respiratory exam: Present: decreased breath sounds, prolonged expiratory phase, rales, respiratory distress, wheezes - Cardiovascular Cardiovascular exam: Absent: bradycardia, clicks, diastolic murmur, gallop, +S3, +S4, systolic murmur - GI/Abdominal GI/Abdominal exam: Present: normal bowel sounds, soft, distended. Absent: diminished bowel sounds, guarding, tenderness - Neurological Exam Neurological exam: Present: alert, CN II-XII intact, oriented X3, reflexes normal. Absent: motor sensory deficit - Expanded Neurological Exam Neurological exam expanded: Absent: ataxia, expressive aphasia, inattentive, me andrea loss-recent event, memory loss-remote event - Psychiatric Psychiatric exam: Present: anxious. Absent: agitated Medical - H&P: Reslt - Labs CBC & Chem 7: 04/22/19 15:13 04/22/19 15:12 Labs: Short CBC 04/22/19 Range/Units 15:13 WBC 10.9 (4.5-11.0) K/mcL Hgb 14.4 (12.0-15.0) g/dL Hct 44.1 (36.0-48.0) % Plt Count 319 (140-440) K/mcL BMP 04/22/19 15:12 Sodium 135 Potassium 4.0 Chloride 88 L Carbon Dioxide 35 H BUN 8 Creatinine 0.5 L Glucose 114 H Calcium 9.8 Liver Function 04/22/19 Range/Units 15:12 Total Bilirubin 0.3 (0.0-1.0) mg/dL AST 16 (0-37) U/l ALT 9 (0-40) U/l Alkaline Phosphatase 97 (39-117) U/L Albumin 3.1 L (3.2-5.2) gm/dL Medical - H&P: A/P - Narrative A/P Narrative: Acute hypoxic respiratory failure COPD exacerbation Requiring BiPAP, will keep her on the BiPAP overnight Recheck ABG in the morning Started on Solu-Medrol 60 every 8 hourly Duo nebs every 4 hour and as needed Ceftriaxone IV 2 g daily azithromycin [address] scan pending Chest x-ray showing evidence of pneumonia Flu swab ordered Possible acute on chronic left ventricular systolic heart failure Patient had a ejection fraction of 30% a month ago Patient has worsening leg edema We will monitor We will keep her on Lasix 40 daily Trend the troponin We will continue lisinopril, start her on Coreg 3.125 if her blood pressure tole rate She needs outpatient cardiology follow-up sooner No history of ischemic disease no previous chest pains mentioned Telemetry monitoring Essential hypertension We will monitor blood pressure and restart home medication lisinopril Chronic pain She is on morphine we will hold the narcotics for now because of her respiratory failure Anxiety disorder She is on BuSpar Effexor and benzodiazepines, hold because of respiratory failure DVT prophylaxis Heparin subcu heparin, SCDs CODE STATUS-full code Expected length of stay-2 midnights Total critical care time spent 60 minutes
[2019-04-22] MEDS ORDERED: ACETAMINOPHEN 325 MG TABLET PO PRN (17:30)
[2019-04-22] MEDS ORDERED: SENNOSIDES 1 TABLET PO PRN ×2 (17:30→18:54)
[2019-04-22] MEDS ORDERED: AZITHROMYCIN 500 MG in DEXTROSE 5% IN WATER 250 ML IV SCH (17:30)
[2019-04-22] MEDS ORDERED: ONDANSETRON 4 MG/2 ML VIAL IV PRN ×2 (17:30→18:54)
[2019-04-22] MEDS ORDERED: LACTULOSE 20 GM/30 ML ORAL.SOL PO PRN ×2 (17:30→18:54)
--- NOTE | 2019-04-22 17:34 | Cat Scan Report ---
CLINICAL INFORMATION: Shortness of breath COMPARISON: None. TECHNIQUE: 80 cc of Isovue-370 were injected intravenously, and 25 seconds later, 0.625 mm helical slices were obtained from the lung apices through the bases. Following reconstruction, 2.5 mm sagittal, coronal and axial reformations were processed and reviewed at lung, mediastinal and bone windows. 7 mm axial MIPS were also obtained to optimize pulmonary nodule detection. The exam was performed using radiation dose optimization techniques including, but not limited to, automated exposure control, adjustment of the mA and/or kV according to patient size and use of iterative reconstruction technique. FINDINGS: Mediastinal windows show mild enlargement of the central pulmonary arteries: the main pulmonary diameter is 3.4 cm compatible with pulmonary hypertension. No evidence of pulmonary embolus. The thoracic aorta is normal in diameter with scattered atherosclerotic plaque. The heart is normal in size and configuration without significant plaque in the coronary arteries. Esophagus is grossly normal. There are multiple moderately enlarged lymph nodes within both agata and lower mediastinum. These range up to 2.4 cm in the precarinal region. Esophagus is grossly normal. The thyroid is unremarkable Pulmonary parenchymal windows show moderate chronic bronchitis featuring elevated lung volumes and wall thickening/ dilatation of the bronchi. Moderate patchy infiltrates within the right middle right upper and posterior right lower lobes with smaller infiltrates in the lingula and left upper lobe with relative sparing of the left lower lobe. There are scattered tree-in-bud airspace disease peripherally throughout both lungs. No effusions. Bones and soft tissues the chest wall are normal. Superior abdominal images show no abnormality IMPRESSION: 1. Moderate chronic bronchitis with moderate patchy alveolar infiltrates in the right upper middle and lower lobes with smaller patchy infiltrate in the left upper lobe and lingula. Suspect infection, aspiration or chronic inflammation due to sarcoid or other chronic inflammatory process. The central pulmonary arteries are mildly enlarged compatible with pulmonary hypertension related to chronic lung disease 2. Moderately enlarged lymph nodes in lower mediastinum and hilum. The possibility of sarcoidosis or non-Hodgkin's lymphoma should be entertained. Suggest pulmonary referral for transbronchial biopsy of one of the lymph nodes. Interpreted and Authenticated by: Albin Lynn 04/22/19
[2019-04-22] MEDS ORDERED: cefTRIAXone 2 GM in DEXTROSE 5% IN WATER 50 ML IV SCH (18:00)
[2019-04-22] MEDS ORDERED: IPRATROPIUM/ALBUTEROL 3 ML AMPUL.NEB NEB SCH (19:00)
[2019-04-22] MEDS: IPRATROPIUM/ALBUTEROL 3 ML AMPUL.NEB NEB SCH ×2 (19:18→23:01)
[2019-04-22 20:35] LABS: ALT/SGPT 8 U/l (0-40); AST/SGOT 14 U/l (0-37); Albumin 3.4 gm/dL (3.2-5.2); Albumin/Globulin Ratio 0.8 (1.0-2.3); Alkaline Phosphatase 98 U/L (39-117); Bilirubin,Total 0.3 mg/dL (0.0-1.0); Blood Urea Nitrogen 9 mg/dl (6-20); Carbon Dioxide 36 mmol/L (22-30); Globulin 4.3 gm/dL (2.2-3.7); Glomerular Filtration Rate 116; Glucose 141 mg/dL (70-105)
[2019-04-22 20:43] LABS: Chloride 90 mmol/L (96-108)
[2019-04-22] MEDS ORDERED: DOCUSATE SODIUM 100 MG CAPSULE PO SCH (21:00)
[2019-04-22] MEDS ORDERED: FAMOTIDINE 20 MG TABLET PO SCH (21:00)
[2019-04-22] MEDS ORDERED: HEPARIN 5,000 UNIT/ML VIAL SQ SCH (21:00)
[2019-04-22] MEDS: HEPARIN 5,000 UNIT/ML VIAL SQ SCH (21:45)
[2019-04-22] MEDS: FAMOTIDINE 20 MG TABLET PO SCH (21:46)
[2019-04-22] MEDS: 0.9 % SODIUM CHLORIDE 10 ML SYRINGE IV SCH (21:46)
[2019-04-22] MEDS: DOCUSATE SODIUM 100 MG CAPSULE PO SCH (21:46)
[2019-04-22] MEDS: methylPREDNISolone SOD SUCC 40 MG/ML VIAL IV SCH (21:46)
[2019-04-22] MEDS ORDERED: 0.9 % SODIUM CHLORIDE 10 ML SYRINGE IV SCH (22:00)
[2019-04-22] MEDS ORDERED: methylPREDNISolone SOD SUCC 40 MG/ML VIAL IV SCH (22:00)
[2019-04-23] MEDS: IPRATROPIUM/ALBUTEROL 3 ML AMPUL.NEB NEB SCH ×6 (02:50→23:01)
--- NOTE | 2019-04-23 03:14 | Emergency Department Note ---
ED Note Addendum Note Addendum: I reviewed this case of Micha Bellamy PA-C. I agree with his evaluation management documentation. I reviewed this patient's blood gas and we discussed respiratory support including BiPAP. I agree with decision to admit
[2019-04-23] MEDS: methylPREDNISolone SOD SUCC 40 MG/ML VIAL IV SCH ×3 (05:23→21:23)
[2019-04-23] MEDS: 0.9 % SODIUM CHLORIDE 10 ML SYRINGE IV SCH ×3 (05:23→21:05)
[2019-04-23 07:07] LABS: Hematocrit 43.9 % (36.0-48.0); Mean Cell Volume 90.3 fL (80.0-100.0); Mean Corpuscular HGB Conc 31.9 g/dL (31.0-36.0); Mean Platelet Volume 9.4 fL (7.4-10.4); Platelet Count 327 K/mcL (140-440); RBC 4.86 M/mcL (4.00-5.20); Red Cell Distribution Width 17.1 % (11.5-14.5); WBC 8.9 K/mcL (4.5-11.0)
[2019-04-23 07:35] LABS: ALT/SGPT 8 U/l (0-40); AST/SGOT 12 U/l (0-37); Albumin 3.1 gm/dL (3.2-5.2); Albumin/Globulin Ratio 0.7 (1.0-2.3); Alkaline Phosphatase 94 U/L (39-117); Bilirubin,Total 0.2 mg/dL (0.0-1.0); Blood Urea Nitrogen 10 mg/dl (6-20); Calcium 9.9 mg/dl (8.6-10.4); Carbon Dioxide 35 mmol/L (22-30); Globulin 4.3 gm/dL (2.2-3.7); Glomerular Filtration Rate 116; Glucose 115 mg/dL (70-105)
[2019-04-23 07:37] LABS: Chloride 92 mmol/L (96-108)
[2019-04-23 08:34] LABS: Anisocytosis 1+ (NONE SEEN); Band Neutrophils % 3 % (0-10); Lymphocytes % 13 % (15-49); Monocytes % (Manual) 1 % (1-12); Platelet Estimate NORMAL (NORMAL); RBC Morphology ABNORM (NORMAL); Segmented Neutrophils % 83 % (38-78)
[2019-04-23] MEDS: DOCUSATE SODIUM 100 MG CAPSULE PO SCH ×2 (08:34→21:05)
[2019-04-23] MEDS: cefTRIAXone 2 GM in DEXTROSE 5% IN WATER 50 ML IV SCH (08:34)
[2019-04-23] MEDS: FUROSEMIDE 40 MG/4 ML VIAL IV SCH (08:34)
[2019-04-23] MEDS: FAMOTIDINE 20 MG TABLET PO SCH ×2 (08:34→21:05)
[2019-04-23] MEDS: HEPARIN 5,000 UNIT/ML VIAL SQ SCH ×2 (08:35→21:05)
[2019-04-23] MEDS ORDERED: FUROSEMIDE 40 MG/4 ML VIAL IV SCH (09:00)
[2019-04-23] MEDS: AZITHROMYCIN 500 MG in DEXTROSE 5% IN WATER 250 ML IV SCH (09:25)
--- NOTE | 2019-04-23 10:45 | Internal Med Progress Note ---
Medical - PN: Subj Patient information: Note initiated : 04/23/19 at 10:44 am Service Date, if different from initiated Date: [] Patient: Grace Canales 58 y/o F admitted on 04/22/19 for Shortness of breath. Chief Complaint: [] Interval history: 58-year-old female known history of COPD and active smoker was brought to the ER because of worsening shortness of breath for the last few days patient cont inues to smoke and she reported smoking 7 to 10 cigarettes during the last week. Patient used her home inhaler without much improvement she was recently discharged from the hospital following a COPD exacerbation treatment. She denied any fever or chills she was evaluated in the ER and found to be profoundly hypoxic requiring BiPAP she underwent ABG which showed PCO2 well compensated with a pH of 7.42 but profoundly hypoxic 46. She was started on BiPAP and admitted to our facility for further management. 04/23 overnight patient used BiPAP and this morning we try to wean off the BiPAP she was requiring significant amount of oxygen 8 L of nasal cannula. We will try to put her back on the BiPAP until she feels better. We will continue the duo nebs as needed we will also continue the Lasix. Discussed with the patient and family about the acute on chronic CHF and patient has ejection fraction of 30% this needs to be followed up with outpatient cardiology and probably needs angiogram. I strongly encouraged the patient to stop smoking since she is having 2 complications and cardiopulmonary failure. I think continued smoking precipitating recurrent COPD. We will give her another dose of Lasix and which can be stopped Pertinent ROS: Review of systems General-distress seems to be improved now she can talk in full sentences Respiratory-continued having shortness of breath and wheezing Cardiac-no chest pain no palpitation no dizziness Abdominal-no diarrhea no constipation Neuro-no focal neuro deficit, no seizure, no headache - Constitutional Vitals: Vital Signs Temp Pulse Resp BP Pulse Ox 96.7 F L 92 H 17 123/69 90 04/23/19 04:08 04/23/19 08:06 04/23/19 08:06 04/23/19 08:06 04/23/19 08:06 Period Temp Pulse Resp BP Sys/Riggins Pulse Ox Last 24 Hr 96.7 F-97.5 F 72-102 14-27 88-134/57-105 87-95 Intake and Output 12/17/19 12/18/19 12/18/19 21:59 05:59 13:59 Intake Total 660 400 Output Total 900 Balance 660 -500 Weight 241 lb 3.2 oz Intake & Output: Intake & Output 04/22/19 04/23/19 04/23/19 21:59 05:59 13:59 Intake Total 660 400 Output Total 900 Balance 660 -500 Weight 241 lb 3.2 oz Intake: IV 300 Zithromax 500 mg In Dextrose 5% 250 in Water 250 ml @ 250 mls/hr IV DAILY [facility] Rx#:[id number] Rocephin 2 gm In Dextrose 5% in 50 Water 50 ml @ 100 mls/hr IV DAILY [facility] Rx#:[id number] Oral 360 400 Output: Void Amount 900 Other: Meal Dinner Percent of Meal Consumed 100% Feeding Ability Independent Urine Appearance Clear Urine Color Dark Marita General appearance: moderate distress - Head Head exam: Present: atraumatic, normal inspection, normocephalic - Eye Eye exam: Present: normal appearance. Absent: nystagmus, periorbital swelling, periorbital tenderness - ENT ENT exam: Present: mucous membranes dry, normal exam, normal external ear exam, normal oropharynx - Neck Neck exam: Present: normal inspection. Absent: lymphadenopathy, meningismus - Respiratory Respiratory exam: Present: accessory muscle use, decreased breath sounds, prolonged expiratory phase, respiratory distress, wheezes - Cardiovascular Cardiovascular exam: Present: normal rate and rhythm, bradycardia. Absent: diastolic murmur, gallop - GI/Abdominal GI/Abdominal exam: Present: normal bowel sounds, soft, distended. Absent: bruit, guarding, tenderness - Neurological Exam Neurological exam: Present: alert, oriented X3, reflexes normal. Absent: motor sensory deficit - Psychiatric Psychiatric exam: Present: anxious. Absent: agitated Medical - PN: Obj Da - Labs CBC & Chem 7: 04/23/19 04:23 04/23/19 04:22 Labs: Abnormal Lab Results 04/23/19 04/23/19 04/22/19 04:23 04:22 18:04 RDW 17.1 H [place] # (Auto) Seg Neutrophils % 83 H Lymphocytes % 13 L RBC Morphology Abnorm A Anisocytosis 1+ A POC Chloride Chloride 92 L 90 L Carbon Dioxide 35 H 36 H POC Total CO2 Creatinine 0.4 L 0.4 L POC Creatinine Glucose 115 H 141 H POC Glucose POC WB Ioniz Calcium Albumin 3.1 L Globulin 4.3 H 4.3 H Albumin/Globulin Ratio 0.7 L 0.8 L 04/22/19 04/22/19 04/22/19 15:50 15:13 15:12 RDW 17.3 H [place] # (Auto) 1.0 H Seg Neutrophils % Lymphocytes % RBC Morphology Anisocytosis POC Chloride 88 L Chloride 88 L Carbon Dioxide 35 H POC Total CO2 39 H Creatinine 0.5 L POC Creatinine 0.5 L Glucose 114 H POC Glucose 115 H POC WB Ioniz Calcium 1.15 L Albumin 3.1 L Globulin 4.5 H Albumin/Globulin Ratio 0.7 L Meds: Medications Acetaminophen (Tylenol) 650 mg PO Q6HP PRN; Protocol PRN Reason: Per Pain Protocol/Fever > 101 Albuterol/Ipratropium (Duoneb) 3 ml NEB Q4HRT [facility] Last Admin: 04/23/19 06:59 Dose: 3 ml Documented by: [facility]il[facility] ([facility]g) [facility] Docusate Sodium (Colace) 100 mg PO BID [facility] Last Admin: 04/23/19 08:34 Dose: 100 mg Documented by: Famotidine (Pepcid) 20 mg PO BID [facility] Last Admin: 04/23/19 08:34 Dose: 20 mg Documented by: Furosemide (Lasix) 40 mg IV DAILY [facility] Last Admin: 04/23/19 08:34 Dose: 40 mg Documented by: Heparin Sodium (Porcine) (Heparin) 5,000 unit SQ Q12 [facility] Last Admin: 04/23/19 08:35 Dose: 5,000 unit Documented by: Azithromycin 500 mg/ Dextrose 250 mls @ 250 mls/hr IV Q24H [facility]; Protocol Stop: 04/25/19 10:59 Last Admin: 04/23/19 09:25 Dose: 250 mls/hr Documented by: Ceftriaxone Sodium 2 gm/ (Dextrose) 50 mls @ 100 mls/hr IV Q24H [facility]; Protocol Last Admin: 04/23/19 08:34 Dose: 100 mls/hr Documented by: Lactulose (Cephulac) 10 gm PO DAILYP PRN PRN Reason: Constipation Lisinopril (Zestril) 2.5 mg PO DAILY [facility] Methylprednisolone Sodium Succinate (Solu-Medrol) 40 mg IV Q8 [facility] Last Admin: 04/23/19 05:23 Dose: 40 mg Documented by: Ondansetron HCl (Zofran) 4 mg IV Q4HP PRN; Protocol PRN Reason: Nausea And Vomiting Pneumococcal Polyvalent Vaccine (Pneumovax 23) 0.5 ml IM .ONCE ONE Stop: 04/24/19 10:01 Senna (Senokot) 2 tab PO HSP PRN PRN Reason: Constipation Sodium Chloride (Saline Flush) 10 ml IV Q8 [facility] Last Admin: 04/23/19 05:23 Dose: 10 ml Documented by: Medical - PN: A/P - Time Spent With Patient Total time spent is greater than 50% in coordination of care (as documented) at patient's floor/unit and/or counseling patient: - Narrative A/P Narrative: Acute hypoxic respiratory failure COPD exacerbation Requiring BiPAP, will keep her on the BiPAP as much as possible and try to wean off the BiPAP later today Recheck ABG showing improvement Started on Solu-Medrol 60 every 8 hourly Duo nebs every 4 hour and as needed Ceftriaxone IV 2 g daily azithromycin [address] scan suggestive of pneumonia and continued antibiotic CT also suggest probable sarcoidosis or interstitial lung disease this needs to be followed up with the pulmonology chest x-ray showing evidence of pneumonia Flu swab ordered Mediastinal lymphadenopathy-needs outpatient follow-up Patient has a mediastinal lymphadenopathy on the CT scan this was an incidental finding Patient needs outpatient pulmonology follow-up and probable biopsy Possible acute on chronic left ventricular systolic heart failure Patient had ejection fraction of 30% a month ago Patient has worsening leg edema Ordered Lasix 40 daily Negative-trend the troponin She was started on lisinopril 2.5 daily and Coreg 3.125 twice daily she needs outpatient cardiology follow-up sooner, I explained to the patient and family about the importance and probably need ischemic heart disease work-up Telemetry monitoring Essential hypertension Started her on lisinopril 2.5 daily and Coreg 3.125 twice daily Chronic pain She is on morphine we will hold the narcotics for now because of her respiratory failure Anxiety disorder She is on BuSpar Effexor and benzodiazepines, hold because of respiratory failure DVT prophylaxis Heparin subcu heparin, SCDs CODE STATUS-full code Expected length of stay-2 more midnights Medical - PN: Qual - VTE Deep Vein Thrombosis/Pulmonary Embolism Present on Admission: No
[2019-04-23] MEDS: CARVEDILOL 3.125 MG TABLET PO SCH (17:49)
[2019-04-24] MEDS: IPRATROPIUM/ALBUTEROL 3 ML AMPUL.NEB NEB SCH ×6 (03:13→22:56)
[2019-04-24] MEDS: 0.9 % SODIUM CHLORIDE 10 ML SYRINGE IV SCH ×3 (05:15→20:12)
[2019-04-24] MEDS: methylPREDNISolone SOD SUCC 40 MG/ML VIAL IV SCH ×3 (05:15→21:20)
[2019-04-24] MEDS: ACETAMINOPHEN 325 MG TABLET PO PRN ×2 (05:31→20:11)
[2019-04-24 06:08] LABS: Hematocrit 43.2 % (36.0-48.0); Hemoglobin 14.2 g/dL (12.0-15.0); Mean Cell Volume 89.3 fL (80.0-100.0); Mean Platelet Volume 9.4 fL (7.4-10.4); Platelet Count 356 K/mcL (140-440); RBC 4.83 M/mcL (4.00-5.20); Red Cell Distribution Width 17.2 % (11.5-14.5); WBC 12.4 K/mcL (4.5-11.0)
[2019-04-24 06:36] LABS: Anisocytosis 1+ (NONE SEEN); Band Neutrophils % 6 % (0-10); Lymphocytes % 12 % (15-49); Monocytes % (Manual) 5 % (1-12); Platelet Estimate NORMAL (NORMAL); RBC Morphology ABNORM (NORMAL); Segmented Neutrophils % 77 % (38-78)
[2019-04-24 06:43] LABS: ALT/SGPT 6 U/l (0-40); AST/SGOT 12 U/l (0-37); Albumin 2.9 gm/dL (3.2-5.2); Albumin/Globulin Ratio 0.7 (1.0-2.3); Alkaline Phosphatase 87 U/L (39-117); Bilirubin,Total 0.2 mg/dL (0.0-1.0); Blood Urea Nitrogen 14 mg/dl (6-20); Calcium 9.9 mg/dl (8.6-10.4); Carbon Dioxide 31 mmol/L (22-30); Globulin 4.2 gm/dL (2.2-3.7); Glucose 144 mg/dL (70-105)
[2019-04-24 06:47] LABS: Chloride 93 mmol/L (96-108); Glomerular Filtration Rate 108
[2019-04-24] MEDS: AZITHROMYCIN 500 MG in DEXTROSE 5% IN WATER 250 ML IV SCH (08:47)
[2019-04-24] MEDS: cefTRIAXone 2 GM in DEXTROSE 5% IN WATER 50 ML IV SCH (08:47)
[2019-04-24] MEDS: HEPARIN 5,000 UNIT/ML VIAL SQ SCH ×2 (08:49→20:12)
[2019-04-24] MEDS: FUROSEMIDE 40 MG/4 ML VIAL IV SCH (08:49)
[2019-04-24] MEDS: DOCUSATE SODIUM 100 MG CAPSULE PO SCH ×2 (08:50→20:12)
[2019-04-24] MEDS: LISINOPRIL 5 MG TABLET PO SCH (08:50)
[2019-04-24] MEDS: FAMOTIDINE 20 MG TABLET PO SCH ×2 (08:51→20:09)
[2019-04-24] MEDS: CARVEDILOL 3.125 MG TABLET PO SCH ×2 (08:51→17:31)
[2019-04-24] MEDS ORDERED: PNEUMOCOCCAL 23-VAL P-SAC VAC 0.5 ML SYRINGE IM ONE (10:00)
--- NOTE | 2019-04-24 16:18 | Internal Med Progress Note ---
Medical - PN: Subj Patient information: Note initiated : 04/24/19 at 4:16 pm Service Date, if different from initiated Date: [] Patient: Grace Canales 58 y/o F admitted on 04/22/19 for Shortness of breath. Chief Complaint: [] 89-year-old gentleman with a history of PE status post IVC filter placement in early 2018, on anticoagulation, history of CAD status post drug-eluting stent in 2008, episodes of unstable angina subsequent stress test with apical ischemia. - Constitutional Vitals: Vital Signs Temp Pulse Resp BP Pulse Ox 98.4 F 91 H 21 129/69 94 04/24/19 08:00 04/24/19 15:11 04/24/19 16:03 04/24/19 10:28 04/24/19 16:03 Period Temp Pulse Resp BP Sys/Riggins Pulse Ox Last 24 Hr 97.1 F-98.4 F 72-95 15-34 111-152/60-79 87-96 Intake and Output 04/24/19 04/24/19 04/24/19 05:59 13:59 21:59 Intake Total 480 871 Output Total 1500 1350 Balance -1020 -479 Intake & Output: Intake & Output 04/24/19 04/24/19 04/24/19 05:59 13:59 21:59 Intake Total 480 871 Output Total 1500 1350 Balance -1020 -479 Intake: IV 271 Zithromax 500 mg In Dextrose 5% 221 in Water 250 ml @ 250 mls/hr IV Q24H [facility] Rx#:[id number] Rocephin 2 gm In Dextrose 5% in 50 Water 50 ml @ 100 mls/hr IV Q24H [facility] Rx#:[id number] Oral 480 600 Output: Void Amount 1500 1350 Other: Meal Breakfast Percent of Meal Consumed 100% Urine Appearance Clear Urine Color Pale Stool Size Large Stool Color Brown Stool Consistency Formed Medical - PN: Obj Da - Labs CBC & Chem 7: 04/24/19 03:58 04/24/19 03:58 Labs: Abnormal Lab Results 04/24/19 04/24/19 04/23/19 03:58 03:58 04:23 WBC 12.4 H RDW 17.2 H 17.1 H [place] # (Auto) Seg Neutrophils % 83 H Lymphocytes % 12 L 13 L RBC Morphology Abnorm A Abnorm A Anisocytosis 1+ A 1+ A POC Chloride Chloride 93 L Carbon Dioxide 31 H POC Total CO2 Creatinine 0.5 L POC Creatinine Glucose 144 H POC Glucose POC WB Ioniz Calcium Albumin 2.9 L Globulin 4.2 H Albumin/Globulin Ratio 0.7 L 04/23/19 04/22/19 04/22/19 04:22 18:04 15:50 WBC RDW [place] # (Auto) Seg Neutrophils % Lymphocytes % RBC Morphology Anisocytosis POC Chloride 88 L Chloride 92 L 90 L Carbon Dioxide 35 H 36 H POC Total CO2 39 H Creatinine 0.4 L 0.4 L POC Creatinine 0.5 L Glucose 115 H 141 H POC Glucose 115 H POC WB Ioniz Calcium 1.15 L Albumin 3.1 L Globulin 4.3 H 4.3 H Albumin/Globulin Ratio 0.7 L 0.8 L 04/22/19 04/22/19 15:13 15:12 WBC RDW 17.3 H [place] # (Auto) 1.0 H Seg Neutrophils % Lymphocytes % RBC Morphology Anisocytosis POC Chloride Chloride 88 L Carbon Dioxide 35 H POC Total CO2 Creatinine 0.5 L POC Creatinine Glucose 114 H POC Glucose POC WB Ioniz Calcium Albumin 3.1 L Globulin 4.5 H Albumin/Globulin Ratio 0.7 L Meds: Medications Acetaminophen (Tylenol) 650 mg PO Q6HP PRN; Protocol PRN Reason: Per Pain Protocol/Fever > 101 Last Admin: 04/24/19 05:31 Dose: 650 mg Documented by: Albuterol/Ipratropium (Duoneb) [address] [facility] Last Admin: 04/24/19 15:00 Dose: 3 ml Documented by: [facility] Last Admin: 04/24/19 08:51 Dose: 3.125 mg Documented by: Docusate Sodium (Colace) [address] [facility] Last Admin: 04/24/19 08:50 Dose: 100 mg Documented by: Famotidine (Pepcid) [address] [facility] Last Admin: 04/24/19 08:51 Dose: 20 mg Documented by: Furosemide (Lasix) [address] [facility] Last Admin: 04/24/19 08:49 Dose: 40 mg Documented by: Heparin Sodium (Porcine) (Heparin) 5,[address] [facility] Last Admin: 04/24/19 08:49 Dose: 5,000 unit Documented by: Ceftriaxone Sodium 2 gm/ (Dextrose) 50 mls @ 100 mls/hr IV Q24H [facility]; Protocol Last Infusion: 04/24/19 09:45 Dose: Infused Documented by: Lactulose (Cephulac) 10 gm PO DAILYP PRN PRN Reason: Constipation Lisinopril (Zestril) 2.[address] [facility] Last Admin: 04/24/19 08:50 Dose: 2.5 mg Documented by: Methylprednisolone Sodium Succinate (Solu-Medrol) [address] [facility] Last Admin: 04/24/19 14:11 Dose: 40 mg Documented by: Ondansetron HCl (Zofran) 4 mg IV Q4HP PRN; Protocol PRN Reason: Nausea And Vomiting Senna (Senokot) 2 tab PO HSP PRN PRN Reason: Constipation Sodium Chloride (Saline Flush) [address] [facility] Last Admin: 04/24/19 14:11 Dose: 10 ml Documented by: Medical - PN: A/P - Time Spent With Patient Total time spent is greater than 50% in coordination of care (as documented) at patient's floor/unit and/or counseling patient: Medical - PN: Qual - VTE Deep Vein Thrombosis/Pulmonary Embolism Present on Admission: No
--- NOTE | 2019-04-24 16:50 | Internal Med Progress Note ---
Medical - PN: Subj Patient information: Note initiated : 04/24/19 at 4:35 pm Service Date, if different from initiated Date: [] Patient: Grace Canales 58 y/o F admitted on 04/22/19 for Shortness of breath. Chief Complaint: [] Interval history: Patient is a 58-year-old female with a history of COPD and current smoker who was brought into the ER due to worsening shortness of breath. In the ER, because of severe desaturation, she was started on BiPAP and admitted to ICU. CT of the chest-possible pneumonia. In the hospital, she was treated with Solu- Medrol, ceftriaxone, azithromycin, and inhalers. She also has a acute on chronic left ventricular systolic heart failure with a EF of 30%. For which Lasix 40 mg daily was ordered. Today she does not have any new complaints. She still needs BiPAP. Vital signs are stable. Denies fever, chills, chest pain, or palpitation. No overnight events Today her white blood cells went up to 12.4 from 8.9 yesterday. - Constitutional Vitals: Vital Signs Temp Pulse Resp BP Pulse Ox 98.4 F 91 H 21 129/69 94 04/24/19 10:00 04/24/19 15:11 04/24/19 16:03 04/24/19 10:28 04/24/19 16:03 Period Temp Pulse Resp BP Sys/Riggins Pulse Ox Last 24 Hr 97.1 F-98.4 F 72-95 15-34 125-152/65-79 88-96 Intake and Output 04/24/19 04/24/19 04/24/19 05:59 13:59 21:59 Intake Total 480 871 Output Total 1500 1350 Balance -1020 -479 Intake & Output: Intake & Output 04/24/19 04/24/19 04/24/19 05:59 13:59 21:59 Intake Total 480 871 Output Total 1500 1350 Balance -1020 -479 Intake: IV 271 Zithromax 500 mg In Dextrose 5% 221 in Water 250 ml @ 250 mls/hr IV Q24H [facility] Rx#:[id number] Rocephin 2 gm In Dextrose 5% in 50 Water 50 ml @ 100 mls/hr IV Q24H [facility] Rx#:[id number] Oral 480 600 Output: Void Amount 1500 1350 Other: Meal Breakfast Percent of Meal Consumed 100% Urine Appearance Clear Urine Color Pale Stool Size Large Stool Color Brown Stool Consistency Formed General appearance: cooperative, moderate distress - Eye Eye exam: Present: EOMI, PERRL - ENT ENT exam: Present: mucous membranes moist - Neck Neck exam: Present: normal inspection - Respiratory Respiratory exam: Present: decreased breath sounds, rhonchi, wheezes - Cardiovascular Cardiovascular exam: Present: normal rate and rhythm - GI/Abdominal GI/Abdominal exam: Present: normal bowel sounds, soft - Extremities Exam Extremities exam: Present: full ROM (Pitting edema+ in both legs) - Neurological Exam Neurological exam: Present: alert, motor sensory deficit (No focal neurological deficits), oriented X3 - Psychiatric Psychiatric exam: Present: normal mood Medical - PN: Obj Da - Labs CBC & Chem 7: 04/24/19 03:58 04/24/19 03:58 Labs: Abnormal Lab Results 04/24/19 04/24/19 04/23/19 03:58 03:58 04:23 WBC 12.4 H RDW 17.2 H 17.1 H [place] # (Auto) Seg Neutrophils % 83 H Lymphocytes % 12 L 13 L RBC Morphology Abnorm A Abnorm A Anisocytosis 1+ A 1+ A POC Chloride Chloride 93 L Carbon Dioxide 31 H POC Total CO2 Creatinine 0.5 L POC Creatinine Glucose 144 H POC Glucose POC WB Ioniz Calcium Albumin 2.9 L Globulin 4.2 H Albumin/Globulin Ratio 0.7 L 04/23/19 04/22/19 04/22/19 04:22 18:04 15:50 WBC RDW [place] # (Auto) Seg Neutrophils % Lymphocytes % RBC Morphology Anisocytosis POC Chloride 88 L Chloride 92 L 90 L Carbon Dioxide 35 H 36 H POC Total CO2 39 H Creatinine 0.4 L 0.4 L POC Creatinine 0.5 L Glucose 115 H 141 H POC Glucose 115 H POC WB Ioniz Calcium 1.15 L Albumin 3.1 L Globulin 4.3 H 4.3 H Albumin/Globulin Ratio 0.7 L 0.8 L 04/22/19 04/22/19 15:13 15:12 WBC RDW 17.3 H [place] # (Auto) 1.0 H Seg Neutrophils % Lymphocytes % RBC Morphology Anisocytosis POC Chloride Chloride 88 L Carbon Dioxide 35 H POC Total CO2 Creatinine 0.5 L POC Creatinine Glucose 114 H POC Glucose POC WB Ioniz Calcium Albumin 3.1 L Globulin 4.5 H Albumin/Globulin Ratio 0.7 L Meds: Medications Acetaminophen (Tylenol) 650 mg PO Q6HP PRN; Protocol PRN Reason: Per Pain Protocol/Fever > 101 Last Admin: 04/24/19 05:31 Dose: 650 mg Documented by: Albuterol/Ipratropium (Duoneb) 3 ml NEB Q4HRT [facility] Last Admin: 04/24/19 15:00 Dose: 3 ml Documented by: [facility] Last Admin: 04/24/19 08:51 Dose: 3.125 mg Documented by: Docusate Sodium (Colace) 100 mg PO BID [facility] Last Admin: 04/24/19 08:50 Dose: 100 mg Documented by: Famotidine (Pepcid) 20 mg PO BID [facility] Last Admin: 04/24/19 08:51 Dose: 20 mg Documented by: Furosemide (Lasix) 40 mg IV DAILY [facility] Last Admin: 04/24/19 08:49 Dose: 40 mg Documented by: Heparin Sodium (Porcine) (Heparin) 5,000 unit SQ Q12 [facility] Last Admin: 04/24/19 08:49 Dose: 5,000 unit Documented by: Ceftriaxone Sodium 2 gm/ (Dextrose) 50 mls @ 100 mls/hr IV Q24H [facility]; Protocol Last Infusion: 04/24/19 09:45 Dose: Infused Documented by: Lactulose (Cephulac) 10 gm PO DAILYP PRN PRN Reason: Constipation Lisinopril (Zestril) 2.5 mg PO DAILY [facility] Last Admin: 04/24/19 08:50 Dose: 2.5 mg Documented by: Methylprednisolone Sodium Succinate (Solu-Medrol) 40 mg IV Q8 [facility] Last Admin: 04/24/19 14:11 Dose: 40 mg Documented by: Ondansetron HCl (Zofran) 4 mg IV Q4HP PRN; Protocol PRN Reason: Nausea And Vomiting Senna (Senokot) 2 tab PO HSP PRN PRN Reason: Constipation Sodium Chloride (Saline Flush) 10 ml IV Q8 [facility] Last Admin: 04/24/19 14:11 Dose: 10 ml Documented by: Medical - PN: A/P - Time Spent With Patient Total time spent is greater than 50% in coordination of care (as documented) at patient's floor/unit and/or counseling patient: (1) Acute exacerbation of chronic obstructive airways disease Status: Acute Current Visit: Yes (2) Congestive heart failure Status: Acute Current Visit: No (3) Acute respiratory failure with hypoxia and hypercapnia Status: Acute Current Visit: No - Narrative A/P Narrative: Assessment: 1. Acute hypoxic respiratory failure 2. COPD exacerbation 3. Possible acute on chronic left ventricular systolic heart failure 4. Essential hypertension 5. Other stable or chronic problems: Essential hypertension Chronic pain Anxiety disorder Mediastinal lymphadenopathy-needs outpatient follow-up Plan: 1. Continue to monitor in ICU. Try to wean off the BiPAP Patient had silent lungs with rhonchi and wheezing. Continue Solu-Medrol 40 every 8 hourly, Ceftriaxone IV 2 g daily azithromycin [address] also suggest probable sarcoidosis or interstitial lung disease this needs to be followed up with the pulmonology MRSA screen negative Sputum culture negative 2. Ejection fraction of 30% a month ago. Troponin neg x 3. Lasix 40 daily. Intake and output, daily weight, lisinopril 2.5 daily and Coreg 3.125 twice daily. outpatient cardiology follow-up sooner 3. Patient has a mediastinal lymphadenopathy on the CT scan this was an incidental finding. Patient needs outpatient pulmonology follow-up and probable biopsy 4. She was on morphine and benzodiazepines, we will hold the narcotics for now because of her respiratory failure. 5. GI and DVT prophylaxis: Pepcid and Heparin subcu heparin, SCDs CODE STATUS-full code Deposition: PT/OT wean off bipap Medical - PN: Qual - VTE Deep Vein Thrombosis/Pulmonary Embolism Present on Admission: No
[2019-04-25] MEDS: IPRATROPIUM/ALBUTEROL 3 ML AMPUL.NEB NEB SCH ×4 (02:31→15:00)
[2019-04-25 05:12] LABS: Hematocrit 45.5 % (36.0-48.0); Hemoglobin 14.6 g/dL (12.0-15.0); Mean Cell Volume 89.4 fL (80.0-100.0); Mean Corpuscular HGB Conc 32.2 g/dL (31.0-36.0); Mean Platelet Volume 9.1 fL (7.4-10.4); Platelet Count 372 K/mcL (140-440); RBC 5.09 M/mcL (4.00-5.20); Red Cell Distribution Width 17.1 % (11.5-14.5); WBC 10.9 K/mcL (4.5-11.0)
[2019-04-25] MEDS: methylPREDNISolone SOD SUCC 40 MG/ML VIAL IV SCH ×2 (05:48→15:22)
[2019-04-25] MEDS: 0.9 % SODIUM CHLORIDE 10 ML SYRINGE IV SCH ×2 (05:48→14:21)
[2019-04-25 05:51] LABS: Bilirubin,Total 0.2 mg/dL (0.0-1.0); Blood Urea Nitrogen 15 mg/dl (6-20); Calcium 10.2 mg/dl (8.6-10.4); Carbon Dioxide 34 mmol/L (22-30)
[2019-04-25 05:59] LABS: ALT/SGPT 6 U/l (0-40); AST/SGOT 11 U/l (0-37); Albumin 3.2 gm/dL (3.2-5.2); Alkaline Phosphatase 84 U/L (39-117); Chloride 92 mmol/L (96-108); Glomerular Filtration Rate 108; Glucose 173 mg/dL (70-105)
[2019-04-25 06:27] LABS: Albumin/Globulin Ratio 0.8 (1.0-2.3)
[2019-04-25 06:50] LABS: Anisocytosis 1+ (NONE SEEN); Band Neutrophils % 2 % (0-10); Lymphocytes % 15 % (15-49); Monocytes % (Manual) 1 % (1-12); Platelet Estimate NORMAL (NORMAL); RBC Morphology ABNORM (NORMAL); Segmented Neutrophils % 82 % (38-78)
[2019-04-25] MEDS: cefTRIAXone 2 GM in DEXTROSE 5% IN WATER 50 ML IV SCH (09:02)
[2019-04-25] MEDS: CARVEDILOL 3.125 MG TABLET PO SCH (09:03)
[2019-04-25] MEDS: LISINOPRIL 5 MG TABLET PO SCH (09:03)
[2019-04-25] MEDS: FAMOTIDINE 20 MG TABLET PO SCH (09:03)
[2019-04-25] MEDS: DOCUSATE SODIUM 100 MG CAPSULE PO SCH (09:03)
[2019-04-25] MEDS: HEPARIN 5,000 UNIT/ML VIAL SQ SCH (09:03)
[2019-04-25] MEDS: FUROSEMIDE 40 MG/4 ML VIAL IV SCH (09:03)
--- NOTE | 2019-04-25 13:12 | Discharge Summary ---
Medical - DS: Prov Patient information: Note initiated : 04/25/19 at 1:10 pm Service Date, if different from initiated Date: [] Patient: Grace Canales 58 y/o F admitted on 04/22/19 for Shortness of breath. Chief Complaint: [] Refer to H&P by Bib Anne M.D. on 04/22/19 This is a 58-year-old female known history of COPD and active smoker was brought to the ER because of worsening shortness of breath for the last few days patient continues to smoke and she reported smoking 7 to 10 cigarettes during the last week. Patient used her home inhaler without much improvement she was recently discharged from the hospital following a COPD exacerbation treatment. She denied any fever or chills she was evaluated in the ER and found to be profoundly hypoxic requiring BiPAP she underwent ABG which showed PCO2 well compensated with a pH of 7.42 but profoundly hypoxic 46. She was started on BiPAP and admitted to our facility for further management. Date of admission: 04/22/19 18:43 Discharge date: 04/25/19 Primary care physician: Ivone Mayer Admitting clinician: Bib Anne Consults: 04/22/19 Consult to Physician [CONS] Stat Comment: Consulting Provider: Bib Anne Reason For Exam: Physician to Consult 04/23/19 15:01 Consult to Physician [CONS] Routine Comment: Wound Care Consulting Provider: Jerel Grady Reason For Exam: Physician to Consult Attending physician on discharge: Koffi Alexander Medical - DS: Meds - Discharge Medications Prescriptions: Azithromycin 250 mg PO DAILY #3 tab Transmission Status: Pending to [id number] predniSONE [Prednisone] 5 mg PO ONCE #40 tab Transmission Status: Pending to [facility] Lisinopril [Zestril] 2.5 mg PO DAILY #15 tab Transmission Status: Pending to [facility] Active and Home Medications: Home Medications Albuterol Sulfate [Ventolin] 2 puff INH Q4HP PRN 03/17/19 [History Confirmed 04/22/19 Last Taken 04/22/19 14:00] Aspirin 81 mg PO DAILY 03/17/19 [History Confirmed 04/22/19 Last Taken 04/22/19 09:30] Cetirizine [Zyrtec] 10 mg PO DAILY 03/17/19 [History Confirmed 04/22/19 Last Taken 04/22/19 09:30] Febuxostat [Uloric] 80 mg PO QDAY 03/17/19 [History Confirmed 04/22/19 Last Taken 04/22/19 09:30] Fluticasone/Salmeterol [Advair 250-50 Diskus] 1 puff INH BID 03/17/19 [History Confirmed 04/22/19 Last Taken 04/22/19 09:30] Furosemide [Lasix] 20 mg PO BID 03/17/19 [History Confirmed 04/22/19 Last Taken 04/22/19 09:30] HYDROcodone/APAP 10/325MG [[place] 10-325Mg] 1 tab PO Q12HP PRN 03/17/19 [History Confirmed 04/22/19 Last Taken 04/22/19 12:00] LORazepam [Ativan] 2 mg PO BIDP PRN 03/17/19 [History Confirmed 04/22/19 Last Taken 04/22/19 09:30] Lisinopril [Zestril] 30 mg PO DAILY 03/17/19 [History Confirmed 04/22/19 Last Taken 04/22/19 09:30] Montelukast Sodium [Singulair] 10 mg PO HS 03/17/19 [History Confirmed 04/22/19 Last Taken 04/21/19 19:30] Venlafaxine [Effexor Xr] 150 mg PO DAILY 03/17/19 [History Confirmed 04/22/19 Last Taken Unknown] busPIRone [Buspar] 15 mg PO BIDP PRN 03/17/19 [History Confirmed 04/22/19 Last Taken 04/22/19 09:30] morphine [Ms Contin] 60 mg PO TID 03/17/19 [History Confirmed 04/22/19 Last Taken 04/22/19 12:00] tiZANidine [Zanaflex] 4 mg PO TIDP PRN 03/17/19 [History Confirmed 04/22/19 Last Taken Unknown] Budesonide [Pulmicort] 0.5 mg NEB Q12 #30 ampul.neb 03/20/19 [Rx Confirmed 04/22/19 Last Taken 04/22/19 10:30] Ipratropium/Albuterol [Duoneb] 3 ml NEB Q4HP PRN #30 ampul.neb 03/20/19 [Rx Confirmed 04/22/19 Last Taken 04/22/19 08:00] Nebulizer [Aeroeclipse II] 1 each QID 999 Days #1 each 03/20/19 [Rx Confirmed 04/22/19 Last Taken Unknown] predniSONE [Deltasone] 40 mg PO DAILY #10 tab 03/20/19 [Rx Confirmed 04/22/19 Last Taken Unknown] Medical - DS: Hosp Hospital Course: By problems: 1. Acute hypoxic respiratory failure 2. COPD exacerbation Patient has silent lungs, bronchi and wheezing almost disappeared. Will discontinue Solu-Medrol 40 every 8 hourly and discharge her on oral prednisone with tapering. will discontinue Ceftriaxone IV 2 g daily and continue azithromycin 250 daily x [address] also suggest probable sarcoidosis or interstitial lung disease this needs to be followed up with the pulmonology MRSA screen negative Sputum culture negative She was on home oxygen 2 L. Now she needs 3 L nasal cannula for 24 hours. Increase to 8 liter for activities. Follow with manufacturing machine operator and PCP. I will refer her to pulmonary rehab. 3. Possible acute on chronic left ventricular systolic heart failure Ejection fraction of 30% a month ago. Troponin neg x 3. Lasix 40 daily. Intake and output, daily weight, lisinopril 2.5 daily and Coreg 3.125 twice daily. outpatient cardiology follow-up sooner 4. Other stable or chronic problems: Essential hypertension Chronic pain Anxiety disorder Mediastinal lymphadenopathy-needs outpatient follow-up Patient has a mediastinal lymphadenopathy on the CT scan this was an incidental finding. Patient needs outpatient pulmonology follow-up and probable biopsy 4. She was on morphine and benzodiazepines, we will hold the narcotics for now because of her respiratory failure. Today she feels much better. Vital signs are stable. PT OT recommended home health with PT OT RN. She will be discharged home with home health to follow with the PCP, detailer school photographs, manufacturing machine operator, and wound care. She needs home oxygen and pulmonary rehab. Call PCP for medical issues. Discharge diagnosis: Acute hypoxic respiratory failure, copd Reason for admission: Acute hypoxic respiratory failure - Time Spent with Patient Total time spent providing and/or coordinating discharge services: Greater than 30 minutes Medical - DS: Exam - Constitutional Vitals: Vital Signs Temp Pulse Pulse Resp BP BP Pulse Ox 04/25/19 11:31 82 23 H 92 04/25/19 11:04 90 04/25/19 09:21 92 04/25/19 09:18 108/66 97 04/25/19 07:53 20 91 04/25/19 07:23 87 15 90 04/25/19 06:55 89 L 04/25/19 06:54 20 113/88 87 L 04/25/19 06:01 22 139/83 95 04/25/19 05:30 20 147/89 99 04/25/19 05:00 88 20 96 04/25/19 04:00 98.1 F 76 21 132/74 95 04/25/19 02:00 82 20 128/68 91 04/25/19 01:00 82 23 H 94 04/25/19 00:21 98.1 F 23 H 140/81 93 04/24/19 23:03 87 29 H 04/24/19 23:02 87 29 H 90 04/24/19 20:35 97.1 F 20 135/79 90 04/24/19 20:10 85 20 04/24/19 16:03 21 94 04/24/19 16:00 98.1 F 82 18 117/73 90 04/24/19 15:11 91 H 21 89 L 04/24/19 15:10 91 H 20 04/24/19 14:00 82 18 94 Intake and Output 04/24/19 04/25/19 04/25/19 21:59 05:59 13:59 Intake Total 180 600 530 Output Total 500 1150 1550 Balance -320 -550 -1020 Intake: IV 50 Rocephin 2 gm In Dextrose 5% in 50 Water 50 ml @ 100 mls/hr IV Q24H [facility] Rx#:[id number] Oral 180 600 480 Output: Void Amount 500 1150 1550 Other: Meal Breakfast Percent of Meal Consumed 100% Urine Appearance Clear Urine Color Straw Stool Size Large Stool Color Brown # Bowel Movements 1 Weight 108.681 kg General appearance: no acute distress - Eye Eye exam: Present: EOMI, PERRL - ENT ENT exam: Present: mucous membranes moist - Expanded Neck Exam Neck exam: Absent: tenderness - Respiratory Respiratory exam: Present: decreased breath sounds - Cardiovascular Cardiovascular exam: Present: normal rate and rhythm. Absent: JVD - GI/Abdominal GI/Abdominal exam: Present: normal bowel sounds, soft. Absent: tenderness - Extremities Exam Extremities exam: Present: normal inspection. Absent: tenderness, Tato's sign - Neurological Exam Neurological exam: Present: alert, oriented X3 (No focal neurological deficits) - Psychiatric Psychiatric exam: Present: normal mood - Skin Skin exam: Present: warm Medical - DS: Data Labs on day of discharge: Labs from last 24 hours 04/25/19 04/25/19 03:40 03:40 WBC 10.9 RBC 5.09 Hgb 14.6 Hct 45.5 MCV 89.4 MCH 28.8 MCHC 32.2 RDW 17.1 H Plt Count 372 MPV 9.1 Total Counted 100 Seg Neutrophils % 82 H Band Neutrophils % 2 Lymphocytes % 15 Monocytes % (Manual) 1 Platelet Estimate Normal RBC Morphology Abnorm A Anisocytosis 1+ A Sodium 138 Potassium 4.1 Chloride 92 L Carbon Dioxide 34 H Anion Gap 12.0 BUN 15 Creatinine 0.5 L GFR Calculation 108 Glucose 173 H Calcium 10.2 Total Bilirubin 0.2 AST 11 ALT 6 Alkaline Phosphatase 84 Total Protein 7.2 Albumin 3.2 Globulin 4.0 H Albumin/Globulin Ratio 0.8 L Medical - DS: A/P - Patient/Caregiver Discharge Instructions Activity: increase activity as tolerated Diet: Low Sodium (2gm) - Problem Maintenance (1) Acute exacerbation of chronic obstructive airways disease Status: Acute (2) Congestive heart failure Status: Acute (3) Acute respiratory failure with hypoxia and hypercapnia Status: Acute - Follow up Plan Follow up with: Talisha Ngo MD [Physician] - 05/06/19 11:30 am (This is a one time post hospital appointment:) Jerel Grady MD [Physician] - 04/28/19 8:40 am () Manoj Shanks MD [Physician] - (A referral has been sent to Dr. Shanks, they will contact you to schedule an appointment.) Sergei Burrows MD [Physician] - (A referral has been sent to Dr. Burrows's office; they will contact you to schedule an appointment.) Disposition: Home Health Service Care Plan Goals: This discharge packet is provided to you to help keep you informed about your care. We want to ensure you get everything you need when you go home. You will also be receiving a call from us in a few days to follow up with you and see how you are doing since your discharge. This gives us a chance to listen to any concerns you maybe experiencing since you were discharged or any additional needs you may have, as well as providing us feedback on your care experience. We strive to always provide excellent care and thank you for your feedback and for choosing [facility]. Plan of Treatment: She will be discharged home with home health to follow with the PCP in 3 days, detailer school photographs within one week, manufacturing machine operator in one week and wound care in one week. She needs home oxygen and pulmonary rehab. Call PCP for medical issues. Prognosis: Fair Rehab Potential: Fair Overall status at discharge: patient is progressing back to baseline Medical - DS: Qual - VTE Deep Vein Thrombosis/Pulmonary Embolism Present on Admission: No
--- NOTE | 2019-04-25 14:22 | General Surgery Consult Note ---
History of Present Illness Patient information: Note initiated : 04/25/19 at 2:11 pm Service Date, if different from initiated Date: [] Patient: Grace Canales 58 y/o F admitted on 04/22/19 for Shortness of breath. Chief Complaint: [] Requesting physician: Koffi Alexander (Wound Care Follow Up) History of present illness: I saw Ms Grace Nesbitt along with Tram OLIVEROS, Inpatient wound care nurse and Dr. Alexander, Hospitalist Physician. She is an established patient at wound care center. Patient was seen for her scheduled appointment at the wound care clinic. However due to her severe distress, EMS was called and she was sent to the ER and subsequently admitted to ICU for management of acute exacerbation of COPD. Patient continues to smoke 7 to 10 cigarettes daily, in spite of multiple attempts to admitting counselor her to quit this unconditionally or risk life threatening events. Her condition has stabilized since admission to ICU and treatment. I have reviewed her progress along with Hospitalist physicians and nursing staff during her this time. Currently she is back at baseline. AVSS. WOUND Examination: Abdominal wall abrasions due to pruritus have resolved. Grade 1-2 skin tears of lower legs too have improved with skin care, topical applications of foam dressing and Comperm. Recommendations OK to ambulate FWB on both feet. Wound care and dressing changes as instructed. F/u at the wound care Center ONE week after discharge. Medications and Allergies Home Medications Medication Instructions Recorded Confirmed Type Albuterol Sulfate [Ventolin] 2 puff INH Q4HP PRN 03/17/19 04/22/19 History Aspirin 81 mg PO DAILY 03/17/19 04/22/19 History Febuxostat [Uloric] 80 mg PO QDAY 03/17/19 04/22/19 History Fluticasone/Salmeterol [Advair 1 puff INH BID 03/17/19 04/22/19 History 250-50 Diskus] Furosemide [Lasix] 20 mg PO BID 03/17/19 04/22/19 History HYDROcodone/APAP 10/325MG [[place] 1 tab PO Q12HP PRN 03/17/19 04/22/19 History 10-325Mg] Montelukast Sodium [Singulair] 10 mg PO HS 03/17/19 04/22/19 History Venlafaxine [Effexor Xr] 150 mg PO DAILY 03/17/19 04/22/19 History busPIRone [Buspar] 15 mg PO BIDP PRN 03/17/19 04/22/19 History tiZANidine [Zanaflex] 4 mg PO TIDP PRN 03/17/19 04/22/19 History Budesonide [Pulmicort] 0.5 mg NEB Q12 #30 ampul.neb 03/20/19 04/22/19 Rx Ipratropium/Albuterol [Duoneb] 3 ml NEB Q4HP PRN #30 ampul.neb 03/20/19 04/22/19 Rx Nebulizer [Aeroeclipse II] 1 each QID 999 Days #1 each 03/20/19 04/22/19 Rx Azithromycin 250 mg PO DAILY #3 tab 04/25/19 Rx Carvedilol [Coreg] 3.125 mg PO BIDCC tab 04/25/19 Rx Lisinopril [Zestril] 2.5 mg PO DAILY #15 tab 04/25/19 Rx predniSONE [Prednisone] 5 mg PO ONCE #40 tab 04/25/19 Rx Allergies Allergy/AdvReac Type Severity Reaction Status Date / Time No Known Drug Allergies Allergy Verified 04/22/19 20:26 Exam Temp Pulse Resp BP Pulse Ox 98.1 F 89 23 H 108/66 92 04/25/19 04:00 04/25/19 11:31 04/25/19 11:31 04/25/19 09:18 04/25/19 11:31 - General physical appearance well developed, well nourished, no distress - Eyes PERRL, normal ocular movement - ENT normal pinna, normal nares, normal mucosa, no congestion - Head Head exam IM: Present: atraumatic, normocephalic - Neck trachea midline, no venous distension - Cardiovascular Cardiovascular exam IM: Present: irregular rhythm - Respiratory normal respiratory effort - Integumentary Present: other (See note above at the begining of this document.) - Neurologic Present: other (Unremarkable and non lateralizing neurological examination. ) - Musculoskeletal Present: normal gait - Psychiatric Present: oriented to time, oriented to person, oriented to place, speech is normal Results - Labs 04/25/19 03:40 04/25/19 03:40 Abnormal lab results 04/25/19 04/25/19 Range/Units 03:40 03:40 RDW 17.1 H (11.5-14.5) % Seg Neutrophils % 82 H (38-78) % RBC Morphology Abnorm A (NORMAL) Anisocytosis 1+ A (NONE SEEN) Chloride 92 L (96-108) mmol/L Carbon Dioxide 34 H (22-30) mmol/L Creatinine 0.5 L (0.6-1.1) mg/dl Glucose 173 H (70-105) mg/dL Globulin 4.0 H (2.2-3.7) gm/dL Albumin/Globulin Ratio 0.8 L (1.0-2.3) Diabetes panel 04/25/19 Range/Units 03:40 Sodium 138 (133-145) mmol/L Potassium 4.1 (3.3-5.1) mmol/L Chloride 92 L (96-108) mmol/L Carbon Dioxide 34 H (22-30) mmol/L BUN 15 (6-20) mg/dl Creatinine 0.5 L (0.6-1.1) mg/dl Glucose 173 H (70-105) mg/dL Calcium 10.2 (8.6-10.4) mg/dl AST 11 (0-37) U/l ALT 6 (0-40) U/l Alkaline Phosphatase 84 (39-117) U/L Total Protein 7.2 (5.9-8.4) gm/dL Albumin 3.2 (3.2-5.2) gm/dL Calcium panel 04/25/19 Range/Units 03:40 Calcium 10.2 (8.6-10.4) mg/dl Albumin 3.2 (3.2-5.2) gm/dL Pituitary panel 04/25/19 Range/Units 03:40 Sodium 138 (133-145) mmol/L Potassium 4.1 (3.3-5.1) mmol/L Chloride 92 L (96-108) mmol/L Carbon Dioxide 34 H (22-30) mmol/L BUN 15 (6-20) mg/dl Creatinine 0.5 L (0.6-1.1) mg/dl Glucose 173 H (70-105) mg/dL Calcium 10.2 (8.6-10.4) mg/dl Adrenal panel 04/25/19 Range/Units 03:40 Sodium 138 (133-145) mmol/L Potassium 4.1 (3.3-5.1) mmol/L Chloride 92 L (96-108) mmol/L Carbon Dioxide 34 H (22-30) mmol/L BUN 15 (6-20) mg/dl Creatinine 0.5 L (0.6-1.1) mg/dl Glucose 173 H (70-105) mg/dL Calcium 10.2 (8.6-10.4) mg/dl Total Bilirubin 0.2 (0.0-1.0) mg/dL AST 11 (0-37) U/l ALT 6 (0-40) U/l Alkaline Phosphatase 84 (39-117) U/L Total Protein 7.2 (5.9-8.4) gm/dL Albumin 3.2 (3.2-5.2) gm/dL All other labs normal. - Imaging Additional studies: Assessment: Patient seen and wound care plan reviewed with her and nursing staff Plan: After discharge, f/u at the wound care center in 1 week.
== END 2019-04-25 15:13 | disposition home health service (06) | DRG 189 ==
LOC: ED 14:22 → ICU 18:43
PROVIDERS: ADMIT Internal Medicine; ATTEND Internal Medicine

== ENCOUNTER 2019-07-08 16:07 | Inpatient (IN) ==
[2019-07-08] MEDS ORDERED: methylPREDNISolone SOD SUCC 125 MG/2 ML VIAL IV ONE (16:17)
--- NOTE | 2019-07-08 16:20 | Emergency Department Note ---
SOB HPI - General Chief Complaint: Shortness of Breath/Dyspnea Stated Complaint: Shortness of Breath Time Seen by Provider: 07/08/19 16:11 Source: patient, EMS Mode of arrival: EMS Limitations: no limitations - History of Present Illness O2 sats were in the 80s at home. When EMS arrived. The. She was acutely dyspneic, working hard to breathe. The. She does have a history of asthma, continues to smoke approximately one or 2 cigarettes a day. Also history of CH F. Denies chest pain, but she states her chest feels tight, no nausea, vomiting, no recent diarrhea. Denies abdominal pain. Has been feeling short of breath, mostly for the last 3 days. MD Complaint: shortness of breath, cough Context: recent illness Severity: moderate Improves with: oxygen, bronchodilators, upright position Worsens with: lying flat, movement, coughing Known history of: COPD, asthma, congestive heart failure, recurrent pneumonia - Related Data Home Medications Medication Instructions Recorded Confirmed Albuterol Sulfate [Ventolin] 2 puff INH Q4HP PRN 03/17/19 07/08/19 Aspirin 81 mg PO DAILY 03/17/19 07/08/19 Febuxostat [Uloric] 80 mg PO QDAY 03/17/19 07/08/19 Fluticasone/Salmeterol [Advair 1 puff INH BID 03/17/19 07/08/19 250-50 Diskus] Furosemide [Lasix] 20 mg PO BID 03/17/19 07/08/19 HYDROcodone/APAP 10/325MG [[place] 1 tab PO Q12HP PRN 03/17/19 07/08/19 10-325Mg] Montelukast Sodium [Singulair] 10 mg PO HS 03/17/19 07/08/19 Venlafaxine [Effexor Xr] 150 mg PO DAILY 03/17/19 07/08/19 tiZANidine [Zanaflex] 4 mg PO TIDP PRN 03/17/19 07/08/19 Cetirizine [ZyrTEC] 10 mg PO DAILY 07/08/19 07/08/19 LORazepam [Ativan] 2 mg PO BID PRN 07/08/19 07/08/19 morphine SULFATE [Ms Contin] 60 mg PO TID 07/08/19 07/08/19 Previous Rx's Medication Instructions Recorded Nebulizer [Aeroeclipse II] 1 each QID 999 Days #1 each 03/20/19 Carvedilol [Coreg] 3.125 mg PO BIDCC #60 tab 04/25/19 Lisinopril [Zestril] 2.5 mg PO DAILY #15 tab 04/25/19 Allergies Allergy/AdvReac Type Severity Reaction Status Date / Time No Known Drug Allergies Allergy Verified 04/22/19 20:26 Review of Systems Constitutional: Reports: weakness Eyes: Denies: vision change ENT ED: Denies: ear pain, throat pain Cardiovascular: Denies: chest pain Respiratory: Reports: shortness of breath, cough, wheezes, phlegm Gastrointestinal: Denies: abdominal pain Genitourinary: Denies: dysuria, urgency Musculoskeletal: Denies: back pain Endocrine: Reports: fatigue Past Medical History - Past Medical History Source: old records reviewed Medical history: Reports: CHF, COPD Psychiatric history: Reports: anxiety NURSING STUDENT history: Reports: non-contributory Surgical history ED: Reports: non-contributory Family history: Reports: non-contributory - Social History smoking status: Current every day smoker Alcohol use: Reports: None Drug use: Reports: none Physical Exam Limitations: no limitations General appearance: alert, in distress Head: atraumatic, normocephalic, normal inspection Eye: Present: normal appearance, PERRL, EOMI. Absent: conjunctival injection ENT: Present: normal exam, normal oropharynx, mucous membranes moist, TM's normal bilaterally Neck: Present: normal inspection, full ROM. Absent: tenderness, meningismus Chest: Present: symmetric chest wall rise Respiratory: Present: respiratory distress, wheezes, prolonged expiratory phase. Absent: rales/crackles Cardiovascular: Present: regular rate, tachycardia, normal heart sounds Abdominal: Present: soft, normal bowel sounds. Absent: distention, tenderness Extremities: Present: normal inspection, full ROM. Absent: tenderness, pedal edema Back: Present: normal inspection. Absent: CVA tenderness (R), CVA tenderness (L), vertebral tenderness Neurological: Present: alert Psychiatric: Present: normal affect Skin: Present: warm, normal color Course - Reevaluation(s) Reevaluation #1: Patient was placed on BiPAP secondary to hypercarbia. She is also significantly hypoxic up. He did bring up yellowish phlegm and blood cultures were drawn, she started on antibiotics for that. She was doing better on BiPAP, he did speak with the hospitalist regarding admission. He request a pulmonary consult, but I think this can be done in the hospital as she most certainly needs admission as well. Vital Signs Temperature 99.5 F H 07/08/19 16:09 Pulse Rate 105 H 07/08/19 16:09 Respiratory Rate 36 H 07/08/19 16:09 Blood Pressure 155/103 07/08/19 16:09 Pulse Oximetry (%) 87 L 07/08/19 16:09 Temperature 99.5 F H 07/08/19 16:09 Pulse Rate 95 H 07/08/19 19:24 Respiratory Rate 21 07/08/19 19:24 Blood Pressure 121/80 07/08/19 19:16 Pulse Oximetry (%) 91 07/08/19 19:24 Shortness of Breath/Dyspnea - MDM Narrative Medical decision making narrative: Impression is COPD exacerbation with hypercarbia - Lab Data Lab results reviewed: Yes I reviewed the patient's lab results. Result diagrams: 07/08/19 17:00 07/08/19 17:00 Lab Results 07/08/19 07/08/19 07/08/19 Range/Units 17:00 17:00 17:00 WBC 14.1 H (4.50-11.00) K/mcL RBC 5.71 H (3.59-5.38) M/mcL Hgb 15.8 H (11.2-15.7) g/dL Hct 49.5 H (34.1-44.9) % MCV 86.7 (80.0-100.0) fL MCH 27.7 (26.0-34.0) pg MCHC 31.9 (31.0-36.0) g/dL RDW 16.3 H (11.5-14.5) % Plt Count 217 (140-440) K/mcL MPV 11.1 H (7.4-10.4) fL Gran % 66.1 (38.0-78.0) % Lymph % (Auto) 17.2 (15.5-49.0) % Ward % (Auto) 8.8 (1.0-12.0) % Eos % (Auto) 7.3 H (0.0-7.0) % Baso % (Auto) 0.6 (0.0-2.0) % Gran # 9.31 H (1.80-8.00) K/mcL Lymph # (Auto) 2.43 (1.50-4.80) K/mcL Ward # (Auto) 1.24 H (0.10-0.90) K/mcL Eos # (Auto) 1.03 H (0.00-0.70) K/mcL Baso # (Auto) 0.08 (0.00-0.30) K/mcL VBG Lactic Acid 1.0 (0.5-2.0) mmol/L Sodium 139 (133-145) mmol/L Potassium 3.5 (3.3-5.1) mmol/L Chloride 90 L (96-108) mmol/L Carbon Dioxide 36 H (22-30) mmol/L Anion Gap 13.0 (8-16) BUN 7 (6-20) mg/dl Creatinine 0.4 L (0.6-1.1) mg/dl GFR Calculation 116 Glucose 115 H (70-105) mg/dL Calcium 9.7 (8.6-10.4) mg/dl Total Bilirubin 0.4 (0.0-1.0) mg/dL AST 12 (0-37) U/l ALT 8 (0-40) U/l Alkaline Phosphatase 111 (39-117) U/L Troponin T (0-0.03) ng/ml C-Reactive Protein 25.4 H (0.0-0.8) mg/dl NT-Pro-B Natriuret Pep 88.3 (0-125) pg/ml Total Protein 8.1 (5.9-8.4) gm/dL Albumin 3.1 L (3.2-5.2) gm/dL Globulin 5.0 H (2.2-3.7) gm/dL Albumin/Globulin Ratio 0.6 L (1.0-2.3) 07/08/19 Range/Units 17:00 WBC (4.50-11.00) K/mcL RBC (3.59-5.38) M/mcL Hgb (11.2-15.7) g/dL Hct (34.1-44.9) % MCV (80.0-100.0) fL MCH (26.0-34.0) pg MCHC (31.0-36.0) g/dL RDW (11.5-14.5) % Plt Count (140-440) K/mcL MPV (7.4-10.4) fL Gran % (38.0-78.0) % Lymph % (Auto) (15.5-49.0) % Ward % (Auto) (1.0-12.0) % Eos % (Auto) (0.0-7.0) % Baso % (Auto) (0.0-2.0) % Gran # (1.80-8.00) K/mcL Lymph # (Auto) (1.50-4.80) K/mcL Ward # (Auto) (0.10-0.90) K/mcL Eos # (Auto) (0.00-0.70) K/mcL Baso # (Auto) (0.00-0.30) K/mcL VBG Lactic Acid (0.5-2.0) mmol/L Sodium (133-145) mmol/L Potassium (3.3-5.1) mmol/L Chloride (96-108) mmol/L Carbon Dioxide (22-30) mmol/L Anion Gap (8-16) BUN (6-20) mg/dl Creatinine (0.6-1.1) mg/dl GFR Calculation Glucose (70-105) mg/dL Calcium (8.6-10.4) mg/dl Total Bilirubin (0.0-1.0) mg/dL AST (0-37) U/l ALT (0-40) U/l Alkaline Phosphatase (39-117) U/L Troponin T < 0.01 (0-0.03) ng/ml C-Reactive Protein (0.0-0.8) mg/dl NT-Pro-B Natriuret Pep (0-125) pg/ml Total Protein (5.9-8.4) gm/dL Albumin (3.2-5.2) gm/dL Globulin (2.2-3.7) gm/dL Albumin/Globulin Ratio (1.0-2.3) Disposition Pt seen by ACUTE CARE ASSISTANT/PA only: No Clinical Impression: Acute exacerbation of chronic obstructive airways disease Disposition: Xfer As Inpt ([facility]) Condition: Fair Referrals: Albin Moctezuma DO [Primary Care Provider] -
[2019-07-08] MEDS ORDERED: NITROGLYCERIN 1 GM OINT.TOP TD ONE (16:25)
[2019-07-08] MEDS ORDERED: LEVOFLOXACIN 500 MG/100 ML BAG IV ONE (16:26)
--- NOTE | 2019-07-08 17:16 | XRay Report ---
HISTORY: Dyspnea FINDINGS: Widespread interstitial and alveolar opacities are present throughout both lungs. There is no lobar consolidation. Lung volumes are normal. In the lingular there is an obliquely oriented band of scar or discoid atelectasis which has developed since 04/22/19. The widespread infiltrates are a chronic finding but have become worse. The heart size is normal. Both agata are enlarged. Mediastinal and hilar adenopathy was demonstrated on the prior CT done on 04/22/19. No pleural effusion is present. IMPRESSION: Persistent widespread infiltrates with bilateral hilar adenopathy. This has become worse since 04/22/19. This could be chronic/recurrent pneumonia or possibly a noninfectious inflammatory process such as sarcoidosis Interpreted and Authenticated by: Santiago Akers 07/08/19
[2019-07-08] MEDS: IPRATROPIUM/ALBUTEROL 3 ML AMPUL.NEB NEB SCH ×4 (17:49→20:01)
[2019-07-08 18:08] LABS: Basophils # (Auto) 0.08 K/mcL (0.00-0.30); Basophils % (Auto) 0.6 % (0.0-2.0); Eosinophils # (Auto) 1.03 K/mcL (0.00-0.70); Eosinophils % (Auto) 7.3 % (0.0-7.0); Granulocytes % (Auto) 66.1 % (38.0-78.0); Hematocrit 49.5 % (34.1-44.9); Hemoglobin 15.8 g/dL (11.2-15.7); Lymphocytes # (Auto) 2.43 K/mcL (1.50-4.80); Lymphocytes % (Auto) 17.2 % (15.5-49.0); Mean Cell Volume 86.7 fL (80.0-100.0); Mean Corpuscular HGB Conc 31.9 g/dL (31.0-36.0); Mean Platelet Volume 11.1 fL (7.4-10.4); Monocytes # (Auto) 1.24 K/mcL (0.10-0.90); Monocytes % (Auto) 8.8 % (1.0-12.0); Platelet Count 217 K/mcL (140-440); RBC 5.71 M/mcL (3.59-5.38); Red Cell Distribution Width 16.3 % (11.5-14.5); WBC 14.1 K/mcL (4.50-11.00)
[2019-07-08 18:39] LABS: proBNP 88.3 pg/ml (0-125)
[2019-07-08 18:53] LABS: ALT/SGPT 8 U/l (0-40); AST/SGOT 12 U/l (0-37); Albumin 3.1 gm/dL (3.2-5.2); Albumin/Globulin Ratio 0.6 (1.0-2.3); Alkaline Phosphatase 111 U/L (39-117); Bilirubin,Total 0.4 mg/dL (0.0-1.0); Blood Urea Nitrogen 7 mg/dl (6-20); C-Reactive Protein 25.4 mg/dl (0.0-0.8); Calcium 9.7 mg/dl (8.6-10.4); Carbon Dioxide 36 mmol/L (22-30); Chloride 90 mmol/L (96-108); Glomerular Filtration Rate 116; Glucose 115 mg/dL (70-105)
--- NOTE | 2019-07-08 20:01 | Internal Med History&Physical ---
Medical - H&P: HPI Patient information: Note initiated : 07/08/19 at 7:57 pm Service Date, if different from initiated Date: [] Patient: Grace Canales a 59 y/o F admitted on for Shortness of Breath. Chief Complaint: [] History of present illness: Ms. Canales is a 59 year old F Presents the ED with increasing shortness of breath and cough different from baseline over the past couple days. 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 She follows with Dr. Bray. She is been admitted in March and April last year for COPD exacerbation. She had a chest x-ray and CT which showed lymphadenopathy and widespread bilater al infiltrates. Subsequent PET CT done by Dr. Bray which showed some pulmonary fibrosis and improved lymphadenopathy. She wears 3 L of oxygen day and night but over the past week is been wearing 5 L. She denies fevers or chills. She has chronic cough but she says is more productive lately, yellow-green sputum. She always feels wheezy. She arrived in the ED she had sats in the mid 80s on 5 L and she appeared to be in respiratory distress with an ABG noted to have elevated CO2 although her pH was compensated. She is placed on a BiPAP. She received breathing treatment as well as steroids. She feels comfortable on the BiPAP and much improved. She quit smoking about a month ago and then started smoking a little bit lately but not very much, maybe half a pack in a week. She also noted to have leukocytosis. Chest x-ray reported as white but infiltrate. Be worse from April imaging. She has a mild leukocytosis at 14 and an elevated CRP of 25. Denies chest pain. Review of Systems: Pertinent positives as above. Denies headache/fever/chills/nausea/vomiting/chest or abdominal pain/diarrhea. Many 10 point review of system reviewed negative Medical - H&P: PMH Medical history: Past medical history: Chemical lung injury from cleaning products many years ago COPD on 3 L chronically follows with Dr. Bray Metabolic alkalosis secondary above History of systolic heart failure with ejection of 30% on echo in March follows Dr. Suarez at [facility] Anxiety Hypertension Tobacco abuse Surgical history: Tonsillectomy appendectomy cholecystectomy Social history: Patient smokes may be a half a pack a week she is cut back significantly Smokes marijuana but has not had any in for couple weeks Denies alcohol use Occasionally uses a cane Medical - H&P: Meds Home Medications Medication Instructions Recorded Confirmed Type Albuterol Sulfate [Ventolin] 2 puff INH Q4HP PRN 03/17/19 07/08/19 History Aspirin 81 mg PO DAILY 03/17/19 07/08/19 History Febuxostat [Uloric] 80 mg PO QDAY 03/17/19 07/08/19 History Fluticasone/Salmeterol [Advair 1 puff INH BID 03/17/19 07/08/19 History 250-50 Diskus] Furosemide [Lasix] 20 mg PO BID 03/17/19 07/08/19 History HYDROcodone/APAP 10/325MG [[place] 1 tab PO Q12HP PRN 03/17/19 07/08/19 History 10-325Mg] Montelukast Sodium [Singulair] 10 mg PO HS 03/17/19 07/08/19 History Venlafaxine [Effexor Xr] 150 mg PO DAILY 03/17/19 07/08/19 History tiZANidine [Zanaflex] 4 mg PO TIDP PRN 03/17/19 07/08/19 History Nebulizer [Aeroeclipse II] 1 each QID 999 Days #1 each 03/20/19 07/08/19 Rx Carvedilol [Coreg] 3.125 mg PO BIDCC #60 tab 04/25/19 07/08/19 Rx Lisinopril [Zestril] 2.5 mg PO DAILY #15 tab 04/25/19 07/08/19 Rx Cetirizine [ZyrTEC] 10 mg PO DAILY 07/08/19 07/08/19 History LORazepam [Ativan] 2 mg PO BID PRN 07/08/19 07/08/19 History morphine SULFATE [Ms Contin] 60 mg PO TID 07/08/19 07/08/19 History Allergies Allergy/AdvReac Type Severity Reaction Status Date / Time No Known Drug Allergies Allergy Verified 04/22/19 20:26 Medical - H&P: Exam - Constitutional Vitals: Temp Pulse Resp BP Pulse Ox 99.5 F H 96 H 21 120/74 92 07/08/19 16:09 07/08/19 19:49 07/08/19 19:49 07/08/19 19:46 07/08/19 19:49 Exam: General: Alert, Awake, No acute Distress, obese Eyes/N/T: EOMI, PERRL, Head/Neck: neck supple, normocephalic atraumatic CV: Tacky but regular, No murmurs, normal s1/s2 Pulm: b/l wheezing/rhonchi worse on left, prolonged expiratory phase ,no rales Abd: soft, nontender, +BS x4 Ext: no clubbing/cyanosis, 2+ b/l LE edema chronic Neuro: Alert, no focal deficits, moves all extremities, CN 2-12 grossly intact, symmetrical strength b/l upper/lower, sensations intact b/l upper/lower Skin: warm/dry Medical - H&P: Reslt - Labs CBC & Chem 7: 07/08/19 17:00 07/08/19 17:00 Labs: Short CBC 07/08/19 Range/Units 17:00 WBC 14.1 H (4.50-11.00) K/mcL Hgb 15.8 H (11.2-15.7) g/dL Hct 49.5 H (34.1-44.9) % Plt Count 217 (140-440) K/mcL BMP 07/08/19 17:00 Sodium 139 Potassium 3.5 Chloride 90 L Carbon Dioxide 36 H BUN 7 Creatinine 0.4 L Glucose 115 H Calcium 9.7 Cardiac Enzymes 07/08/19 Range/Units 17:00 Troponin T < 0.01 (0-0.03) ng/ml Liver Function 07/08/19 Range/Units 17:00 Total Bilirubin 0.4 (0.0-1.0) mg/dL AST 12 (0-37) U/l ALT 8 (0-40) U/l Alkaline Phosphatase 111 (39-117) U/L Albumin 3.1 L (3.2-5.2) gm/dL Medical - H&P: A/P - Narrative A/P Narrative: A: *Acute hypoxic respiratory failure with chronic CO2 retention, compensated: -on bipap *AECOPD (3L o2@home): Follows with Dr. 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
[2019-07-08] MEDS ORDERED: VANCOMYCIN PER PHARMACY IV SCH (21:19)
[2019-07-08] MEDS ORDERED: POTASSIUM CHLORIDE 20 MEQ TABLET PO PRN ×2 (21:19)
[2019-07-08] MEDS ORDERED: tiZANidine 4 MG TABLET PO PRN (21:19)
[2019-07-08] MEDS ORDERED: LACTULOSE 20 GM/30 ML ORAL.SOL PO PRN (21:19)
[2019-07-08] MEDS ORDERED: ONDANSETRON 4 MG/2 ML VIAL IV PRN (21:19)
[2019-07-08] MEDS ORDERED: LORAZEPAM 2 MG PO PRN (21:19)
[2019-07-08] MEDS ORDERED: HYDROcodone/APAP 10/325MG TABLET PO PRN (21:19)
[2019-07-08] MEDS ORDERED: ACETAMINOPHEN 325 MG TABLET PO PRN (21:19)
[2019-07-08] MEDS ORDERED: POTASSIUM CHLORIDE 40 MEQ in DEXTROSE 5% IN WATER 500 ML IV PRN (21:19)
[2019-07-08] MEDS ORDERED: POLYETHYLENE GLYCOL 3350 17 GM PACKET PO PRN (21:19)
[2019-07-08] MEDS ORDERED: SENNOSIDES 1 TABLET PO PRN (21:19)
[2019-07-08] MEDS ORDERED: IPRATROPIUM/ALBUTEROL 3 ML AMPUL.NEB NEB PRN (21:19)
[2019-07-08] MEDS ORDERED: MAGNESIUM SULFATE 2 GM/50 ML BAG IV PRN (21:19)
[2019-07-08 22:00] LABS: Anisocytosis 1+ (NONE SEEN); Band Neutrophils % 4 % (0-10); Basophils % (Manual) 1 % (0-2); Eosinophils % (Manual) 9 % (0-7); Lymphocytes % 17 % (15-49); Monocytes % (Manual) 8 % (1-12); Platelet Estimate NORMAL (NORMAL); RBC Morphology ABNORM (NORMAL); Segmented Neutrophils % 61 % (38-78)
[2019-07-08] MEDS: MONTELUKAST 10 MG TABLET PO SCH (22:15)
[2019-07-08] MEDS: FUROSEMIDE 40 MG TABLET PO SCH (22:16)
[2019-07-08] MEDS: morphine 30 MG TAB.SR.12H PO SCH (22:16)
[2019-07-08] MEDS: DOCUSATE SODIUM 100 MG CAPSULE PO SCH (22:16)
[2019-07-08] MEDS: VANCOMYCIN 1,500 MG in 0.9 % SODIUM CHLORIDE 500 ML IV SCH (23:33)
[2019-07-08] MEDS: 0.9 % SODIUM CHLORIDE 10 ML SYRINGE IV SCH (23:34)
[2019-07-08] MEDS: FLUTICASONE/SALMETEROL 250/50 INHALER #14 INH SCH (23:34)
[2019-07-09] MEDS: PIPERACILLIN SODIUM/TAZOBACTAM 3.375 GM in DEXTROSE 5% IN WATER 50 ML IV SCH ×2 (00:52→05:54)
[2019-07-09] MEDS: IPRATROPIUM/ALBUTEROL 3 ML AMPUL.NEB NEB SCH ×4 (00:53→19:17)
[2019-07-09] MEDS: 0.9 % SODIUM CHLORIDE 10 ML SYRINGE IV SCH ×3 (05:54→20:53)
[2019-07-09 06:58] LABS: Hematocrit 46.7 % (34.1-44.9); Hemoglobin 14.9 g/dL (11.2-15.7); Mean Cell Volume 87.1 fL (80.0-100.0); Mean Corpuscular HGB Conc 31.9 g/dL (31.0-36.0); Mean Platelet Volume 12.1 fL (7.4-10.4); Platelet Count 249 K/mcL (140-440); RBC 5.36 M/mcL (3.59-5.38); Red Cell Distribution Width 16.2 % (11.5-14.5); WBC 10.7 K/mcL (4.50-11.00)
--- NOTE | 2019-07-09 07:15 | Internal Med Progress Note ---
Medical - PN: Subj Patient information: Note initiated : 07/09/19 at 7:10 am Service Date, if different from initiated Date: [] Patient: Grace Canales a 59 y/o F admitted on 07/08/19 for Shortness of Breath. Chief Complaint: [] Interval history: Ms. Canales is a 59 year old F Presents the ED with increasing shortness of breath and cough different from baseline over the past couple days. 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 She follows with Dr. Bray. She is been admitted in March and April last year for COPD exacerbation. She had a chest x-ray and CT which showed lymphadenopathy and widespread bilateral infiltrates. Subsequent PET CT done by Dr. Bray which showed some pulmonary fibrosis and improved lymphadenopathy. She wears 3 L of oxygen day and night but over the past week is been wearing 5 L . She denies fevers or chills. She has chronic cough but she says is more productive lately, yellow-green sputum. She always feels wheezy. She arrived in the ED she had sats in the mid 80s on 5 L and she appeared to be in respiratory distress with an ABG noted to have elevated CO2 although her pH was compensated. She is placed on a BiPAP. She received breathing treatment as well as steroids. She feels comfortable on the BiPAP and much improved. She quit smoking about a month ago and then started smoking a little bit lately but not very much, maybe half a pack in a week. She also noted to have leukocytosis. Chest x-ray reported as white but infiltrate. Be worse from April imaging. She has a mild leukocytosis at 14 and an elevated CRP of 25. Denies chest pain. 3/4 Did not tolerate nasal cannula this morning was put back on BiPAP. Recently changed to CPAP setting primarily hypoxic issue. Patient does feel better and feels breathing is better. Her cough is more productive of clear sputum and breaking up and feels better to her. No shortness of breath in bed on the mask at this time. Leukocytosis improved. Respiratory viral panel negative. Review of Systems: denies headache/fever/chills/nausea/vomiting/chest or abdominal pain/diarrhea. Otherwise see above. - Constitutional Vitals: Vital Signs Temp Pulse Resp BP Pulse Ox 99.0 F 74 24 H 136/75 97 07/09/19 04:01 07/09/19 05:00 07/09/19 05:00 07/09/19 04:01 07/09/19 05:00 Period Temp Pulse Resp BP Sys/Riggins Pulse Ox Last 24 Hr 97.1 F-99.5 F 74-105 16-36 106-155/46-135 83-97 Intake and Output 07/08/19 07/09/19 07/09/19 21:59 05:59 13:59 Intake Total 100 250 50 Output Total 1000 Balance 100 -750 50 Weight 110.087 kg Intake & Output: Intake & Output 07/08/19 07/09/19 07/09/19 21:59 05:59 13:59 Intake Total 100 250 50 Output Total 1000 Balance 100 -750 50 Weight 110.087 kg Intake: IV 100 50 50 Zosyn 3.375 gm In Dextrose 5% 50 50 in Water 50 ml @ 100 mls/hr IV Q6H [facility] Rx#:[id number] Oral 200 Output: Void Amount 1000 Other: Urine Color Dark Yellow Urine Odor Foul Exam: General: Alert, Awake, No acute Distress, obese Eyes/N/T: EOMI, Head/Neck: neck supple, CV: Tacky but regular, No murmurs, Pulm: mild b/l wheezing improving, mild rhonchi/rales at bases, prolonged expiratory phase, diminished b/l Abd: soft, nontender, +BS x4 Ext: no clubbing/cyanosis, 1+ b/l LE edema chronic Neuro: Alert, no focal deficits, moves all extremities, Skin: warm/dry Medical - PN: Obj Da - Labs CBC & Chem 7: 07/09/19 05:05 07/09/19 05:05 Labs: Abnormal Lab Results 07/09/19 07/08/19 07/08/19 05:05 17:00 17:00 WBC RBC Hgb Hct 46.7 H RDW 16.2 H MPV 12.1 H Eos % (Auto) Gran # [place] # (Auto) Eos # (Auto) Eosinophils % (Manual) 9 H RBC Morphology Abnorm A Anisocytosis 1+ A Chloride 90 L Carbon Dioxide 36 H Creatinine 0.4 L Glucose 115 H C-Reactive Protein 25.4 H Albumin 3.1 L Globulin 5.0 H Albumin/Globulin Ratio 0.6 L 07/08/19 17:00 WBC 14.1 H RBC 5.71 H Hgb 15.8 H Hct 49.5 H RDW 16.3 H MPV 11.1 H Eos % (Auto) 7.3 H Gran # 9.31 H [place] # (Auto) 1.24 H Eos # (Auto) 1.03 H Eosinophils % (Manual) RBC Morphology Anisocytosis Chloride Carbon Dioxide Creatinine Glucose C-Reactive Protein Albumin Globulin Albumin/Globulin Ratio Meds: Medications Acetaminophen (Tylenol) 650 mg PO Q6HP PRN PRN Reason: PAIN/FEVER > 101 Hydrocodone Bitart/Acetaminophen ([place] 10/325mg) 1 tab PO Q12HP PRN; Protocol PRN Reason: Pain Albuterol/Ipratropium (Duoneb) 3 ml NEB Q6HRT [facility] Last Admin: 07/09/19 00:53 Dose: 3 ml Documented by: Albuterol/Ipratropium (Duoneb) 3 ml NEB Q4HP PRN PRN Reason: Shortness Of Breath Aspirin (Aspirin) 81 mg PO DAILY [facility] Carvedilol (Coreg) 3.125 mg PO BIDCC [facility] Docusate Sodium (Colace) 100 mg PO BID [facility] Last Admin: 07/08/19 22:16 Dose: 100 mg Documented by: Enoxaparin Sodium (Lovenox) 40 mg SQ DAILY [facility] Furosemide (Lasix) 20 mg PO BID [facility] Last Admin: 07/08/19 22:16 Dose: 20 mg Documented by: Potassium Chloride 40 meq/ (Dextrose) 520 mls @ 130 mls/hr IV UD PRN PRN Reason: Potassium < 3 Magnesium Sulfate (Magnesium Sulfate) 2 gm in 50 mls @ 50 mls/hr IV UD PRN PRN Reason: Magnesium </= 1.6 Piperacillin Sod/Tazobactam (Sod 3.375 gm/ Dextrose) 50 mls @ 100 mls/hr IV Q6H [facility]; Protocol Last Infusion: 07/09/19 06:45 Dose: Infused Documented by: Vancomycin HCl 1,500 mg/ (Sodium Chloride) 500 mls @ 333.3 mls/hr IV Q12H [facility] Last Admin: 07/08/19 23:33 Dose: 333.3 mls/hr Documented by: Lactulose (Cephulac) 20 gm PO DAILYP PRN PRN Reason: Constipation Lisinopril (Zestril) 2.5 mg PO DAILY [facility] Montelukast Sodium (Singular) 10 mg PO HS [facility] Last Admin: 07/08/19 22:15 Dose: 10 mg Documented by: Morphine Sulfate (Ms Contin) 60 mg PO TID [facility] Last Admin: 07/08/19 22:16 Dose: 60 mg Documented by: Febuxostat [Uloric] (80 Mg) 1 mg PO QDAY [facility] Non-Formulary Medication (Lorazepam [Ativan]) 2 mg PO BID PRN PRN Reason: Anxiety Ondansetron HCl (Zofran) 4 mg IV Q4HP PRN PRN Reason: Nausea And Vomiting Polyethylene Glycol (Miralax) 17 gm PO DAILYP PRN PRN Reason: Constipation Potassium Chloride (Kdur) 40 meq PO UD PRN PRN Reason: Potssium is 3-3.5 Potassium Chloride (Kdur) 40 meq PO UD PRN PRN Reason: Potassium < 3 Fluticasone/Salmeterol (Advair 250-50 Diskus) 1 puff INH BID [facility] Last Admin: 07/08/19 23:34 Dose: Not Given Documented by: Senna (Senokot) 2 tab PO DAILYP PRN PRN Reason: Constipation Sodium Chloride (Saline Flush) 10 ml IV Q8 [facility] Last Admin: 07/09/19 05:54 Dose: Not Given Documented by: Tizanidine HCl (Zanaflex) 4 mg PO TIDP PRN PRN Reason: MUSCLE SPASMS Vancomycin HCl (Vancomycin Per Pharmacy) 1 order IV UD [facility]; Protocol Venlafaxine HCl (Effexor Xr) 150 mg PO DAILY [facility] Medical - PN: A/P - Time Spent With Patient Total time spent is greater than 50% in coordination of care (as documented) at patient's floor/unit and/or counseling patient: - Narrative A/P Narrative: A: *Acute hypoxic respiratory failure with chronic CO2 retention compensated: -on bipap in ED and o/n now on cpap *AECOPD (3L o2@home): Follows with Dr. Bray *Chronic metabolic alkalosis: 2/2 above *suspected PNA: -leukocytosis improved -resp viral panel neg *h/o chemical lung injury from cleaning products in the 70's with Pulmonary Fibrosis: *h/o systolic CHF(30% EF march): Follows with [facility] *Anxiety: *HTN: *Tobacco abuse: *Obesity: *chr pain: P: -wean cpap to [place] as able -ronald/brenda deescalate to likely rocephin/azithro -pending BC/SC -steroids(wean)/nebs/RT -IS/acapella -pulmonology consult -Continue home BB/ACEI, continue home Lasix -Continue home anxiety medication -PT/OT -Smoking cessation counseling -ppx: Lovenox full code Medical - PN: Qual - Stroke Symptom Onset Unknown: No - VTE Deep Vein Thrombosis/Pulmonary Embolism Present on Admission: No
[2019-07-09 07:35] LABS: ALT/SGPT 8 U/l (0-40); AST/SGOT 14 U/l (0-37); Albumin 2.8 gm/dL (3.2-5.2); Albumin/Globulin Ratio 0.6 (1.0-2.3); Alkaline Phosphatase 133 U/L (39-117); Bilirubin,Direct < 0.2 mg/dL (0.0-0.3); Bilirubin,Total 0.3 mg/dL (0.0-1.0); Blood Urea Nitrogen 7 mg/dl (6-20); C-Reactive Protein 22.5 mg/dl (0.0-0.8); Calcium 9.5 mg/dl (8.6-10.4); Carbon Dioxide 33 mmol/L (22-30); Chloride 94 mmol/L (96-108); Globulin 4.7 gm/dL (2.2-3.7); Glomerular Filtration Rate 107; Glucose 113 mg/dL (70-105); Lactate Dehydrogenase 183 U/L (94-250); Phosphorous 4.1 mg/dL (2.7-4.5); Triglycerides 75 mg/dl (<150); Uric Acid 2.3 mg/dL (2.5-8.0)
[2019-07-09] MEDS: methylPREDNISolone SOD SUCC 40 MG/ML VIAL IV SCH ×3 (07:38→21:25)
[2019-07-09] MEDS ORDERED: LORazepam 1 MG TABLET PO PRN (07:45)
[2019-07-09 08:47] LABS: Band Neutrophils % 7 % (0-10); Eosinophils % (Manual) 1 % (0-7); Lymphocytes % 10 % (15-49); Monocytes % (Manual) 6 % (1-12); Platelet Estimate NORMAL (NORMAL); RBC Morphology NORMAL (NORMAL); Reactive Lymphocytes 1 % (0-2); Segmented Neutrophils % 75 % (38-78); Toxic Granulation 1+ (NONE SEEN)
[2019-07-09] MEDS: FLUTICASONE/SALMETEROL 250/50 INHALER #14 INH SCH ×2 (09:29→20:49)
[2019-07-09] MEDS: ENOXAPARIN 40 MG/0.4 ML SYRINGE SQ SCH (09:39)
[2019-07-09] MEDS: VENLAFAXINE 150 MG CAP.XL.24H PO SCH (09:40)
[2019-07-09] MEDS: ASPIRIN 81 MG TAB.CHEW PO SCH (09:40)
[2019-07-09] MEDS: CARVEDILOL 3.125 MG TABLET PO SCH ×2 (09:40→17:35)
[2019-07-09] MEDS: FUROSEMIDE 40 MG TABLET PO SCH ×2 (09:40→20:52)
[2019-07-09] MEDS: LISINOPRIL 5 MG TABLET PO SCH (09:40)
[2019-07-09] MEDS: morphine 30 MG TAB.SR.12H PO SCH ×3 (09:40→20:53)
[2019-07-09] MEDS: VANCOMYCIN 1,500 MG in 0.9 % SODIUM CHLORIDE 500 ML IV SCH ×2 (09:43→20:53)
[2019-07-09] MEDS: Febuxostat [Uloric] 80 MG PO SCH (09:48)
[2019-07-09] MEDS: DOCUSATE SODIUM 100 MG CAPSULE PO SCH ×2 (10:27→20:49)
[2019-07-09] MEDS: cefTRIAXone 2 GM in DEXTROSE 5% IN WATER 50 ML IV SCH (11:52)
[2019-07-09] MEDS: MONTELUKAST 10 MG TABLET PO SCH (20:53)
--- NOTE | 2019-07-09 22:51 | Consultation ---
DATE OF CONSULTATION: 07/09/2019 REQUESTING PHYSICIAN: Gilberto Rivera DO, hospitalist. CONSULTING PHYSICIAN: Sergei Burrows MD, pulmonology. HISTORY OF PRESENT ILLNESS: The patient is a pleasant 59-year-old female who presented to the hospital on 07/08/2019 with a chief complaint of shortness of breath. She is a known patient to this institution, having had a couple of admissions in the last several months for respiratory failure. Unfortunately, the patient continues to smoke and has significant obstructive airways disease with hypoventilatory hypoxic respiratory failure. She indicates that 4 to 5 days prior to her presentation, she developed the increasing work of breathing associated with increased volume, viscosity, and yellowness of her sputum. This occurred despite her outpatient medical regimen with Advair and albuterol. She indicates that she also takes montelukast and Zyrtec for possible allergy issues. When seen in the emergency room, her CO2 was elevated and she was tired. Her CO2 elevation appears to be fairly chronic given her relatively normal pH, but was considered to be fatiguing and a candidate for admission, which was appropriate. Sputum culture suggested Haemophilus influenzae. Unfortunately, the patient continues to smoke and she is encouraged to achieve complete tobacco cessation. Her history does include a reported exposure to the mixture of bleach and another cleaning product with possible chlorine gas exposure in the 1970s. She would suggest she has been significantly impaired since that time. She has been following with Dr. Bray at [facility] in regard to her pulmonary difficulties. Recent evaluations have apparently suggested varying pulmonary infiltrates as well as some hilar mediastinal lymphadenopathy. The workup and the etiology of that issue were not available at this time. The patient denies unusual pets, plants, or birds in the home or other exposures. She denies symptomatic gastroesophageal reflux disease, but sleeps propped up with a need to do that in her view based on breathing rather than a sense of reflux or aspiration. She denies known cardiac difficulties. She denies dependent edema. REVIEW OF SYSTEMS: Otherwise negative except as recorded above on detailed questioning. PHYSICAL EXAMINATION: GENERAL: Conversational, stated age appearing female with bilevel mask in place, but able to communicate, in no acute distress at this time. HEENT: Head is atraumatic, normocephalic. NECK: Supple. LUNGS: Markedly decreased breath sounds in all lung bearden with the exception of a few scattered wheezes and rare rhonchus. HEART: Regular S1, S2, without apparent gallop, rub, jugular venous distention, or dependent edema. ABDOMEN: Soft. Bowel sounds are present. No mass or tenderness. BONES/JOINTS/EXTREMITIES: Without acute changes. NEUROLOGIC: Nonfocal. LABORATORY DATA: Collected on presentation included a white count of 14.1, which is improved since admission. Platelet count is normal. Bicarbonate elevated at 36, consistent with her hypoventilatory state and kidney buffering. Troponin T normal on one determination. Liver enzymes within normal limits. IMPRESSION: Hypoventilatory respiratory failure in a setting of chronic obstructive lung disease and remote lung injury, possibly with chlorine gas. Exacerbation may be due to the cultured Haemophilus. PLAN: Agree with broad spectrum antibiotic coverage, pending final culture. Agree with respiratory support with bilevel. Encouraged and counseled tobacco cessation as of critical necessity in this patient's clinical situation. This was discussed with the patient. It would be nice to see what if any other data is available pulmonary function [place] or imaging over the last several months to better understand any subacute process ongoing with this patient versus her episodic acute exacerbations. I see where the patient has been referred to my clinic previously. We will be happy to see her there if an appointment can be arranged, although she does have a purler in her care, Dr. Bray, and I see no reason to interrupt that relationship with the patient if it is working for her. Consider arranging Trilogy respiratory support device or other similar for night or night/day use to help respiratory muscle failure weakness on D/C Thank you for the opportunity to participate in the care of this pleasant lady. KJP:hn Job ID: [id number] Doc ID: [id number] Sergei JOHN
[2019-07-10] MEDS: IPRATROPIUM/ALBUTEROL 3 ML AMPUL.NEB NEB SCH ×4 (01:01→18:37)
[2019-07-10] MEDS: 0.9 % SODIUM CHLORIDE 10 ML SYRINGE IV SCH ×3 (05:38→22:02)
[2019-07-10] MEDS: methylPREDNISolone SOD SUCC 40 MG/ML VIAL IV SCH ×3 (05:38→22:00)
[2019-07-10 06:54] LABS: Blood Urea Nitrogen 11 mg/dl (6-20); Calcium 10.3 mg/dl (8.6-10.4); Carbon Dioxide 38 mmol/L (22-30); Chloride 96 mmol/L (96-108); Glomerular Filtration Rate 107; Glucose 128 mg/dL (70-105)
[2019-07-10] MEDS ORDERED: acetaZOLAMIDE SOD 500 MG VIAL IV ONE (07:30)
--- NOTE | 2019-07-10 07:33 | Internal Med Progress Note ---
Medical - PN: Subj Patient information: Note initiated : 07/10/19 at 7:28 am Service Date, if different from initiated Date: [] Patient: Grace Canales a 59 y/o F admitted on 07/08/19 for Shortness of Breath. Chief Complaint: [] Interval history: Ms. Canales is a 59 year old F Presents the ED with increasing shortness of breath and cough different from baseline over the past couple days. 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 She follows with Dr. Bray. She is been admitted in March and April last year for COPD exacerbation. She had a chest x-ray and CT which showed lymphadenopathy and widespread bilateral infiltrates. Subsequent PET CT done by Dr. Bray which showed some pulmonary fibrosis and improved lymphadenopathy. She wears 3 L of oxygen day and night but over the past week is been wearing 5 L . She denies fevers or chills. She has chronic cough but she says is more productive lately, yellow-green sputum. She always feels wheezy. She arrived in the ED she had sats in the mid 80s on 5 L and she appeared to be in respiratory distress with an ABG noted to have elevated CO2 although her pH was compensated. She is placed on a BiPAP. She received breathing treatment as well as steroids. She feels comfortable on the BiPAP and much improved. She quit smoking about a month ago and then started smoking a little bit lately but not very much, maybe half a pack in a week. She also noted to have leukocytosis. Chest x-ray reported as white but infiltrate. Be worse from April imaging. She has a mild leukocytosis at 14 and an elevated CRP of 25. Denies chest pain. 3/4 Did not tolerate nasal cannula this morning was put back on BiPAP. Recently changed to CPAP setting primarily hypoxic issue. Patient does feel better and feels breathing is better. Her cough is more productive of clear sputum and breaking up and feels better to her. No shortness of breath in bed on the mask at this time. Leukocytosis improved. Respiratory viral panel negative. 3/5 Feeling better today. Able to take deeper breaths. Improved shortness of breath. Cough feels to be improving per her and is productive of white sputum. No other pains or complaints. Still on CPAP. By pulmonology last night. Review of Systems: denies headache/fever/chills/nausea/vomiting/chest or abdominal pain/diarrhea. Otherwise see above. - Constitutional Vitals: Vital Signs Temp Pulse Resp BP Pulse Ox 97.8 F 86 24 H 136/73 90 07/10/19 04:01 07/10/19 05:00 07/10/19 05:00 07/10/19 04:01 07/10/19 05:00 Period Temp Pulse Resp BP Sys/Riggins Pulse Ox Last 24 Hr 97 F-97.8 F 67-86 14-27 112-140/66-96 84-95 Intake and Output 07/09/19 07/10/19 07/10/19 21:59 05:59 13:59 Intake Total 480 500 Output Total 800 950 Balance -320 -450 Weight 111.992 kg Intake & Output: Intake & Output 07/09/19 07/10/19 07/10/19 21:59 05:59 13:59 Intake Total 480 500 Output Total 800 950 Balance -320 -450 Weight 111.992 kg Intake: IV 500 Vancomycin 1,500 mg In Sodium 500 Chloride 0.9% 500 ml @ 333.3 mls/hr IV Q12H [facility] Rx#: [id number] Oral 480 Output: Void Amount 800 950 Other: Urine Appearance Clear Urine Color Bright Yellow Urine Odor Strong Exam: General: Alert, Awake, No acute Distress, obese Eyes/N/T: EOMI, Head/Neck: neck supple, CV: RRR, No murmurs, Pulm: mild b/l wheezing improving, mild rhonchi/rales at bases, prolonged expiratory phase, Abd: soft, nontender, +BS x4 Ext: no clubbing/cyanosis, 1-2+ b/l LE edema chronic Neuro: Alert, no focal deficits, moves all extremities, Skin: warm/dry Medical - PN: Obj Da - Labs CBC & Chem 7: 07/09/19 05:05 07/10/19 05:10 Labs: Abnormal Lab Results 07/10/19 07/09/19 07/09/19 05:10 05:05 05:05 WBC RBC Hgb Hct 46.7 H RDW 16.2 H MPV 12.1 H Eos % (Auto) Gran # [place] # (Auto) Eos # (Auto) Lymphocytes % 10 L Eosinophils % (Manual) WBC Morphology Abnorm A Toxic Granulation 1+ A RBC Morphology Anisocytosis Chloride 94 L Carbon Dioxide 38 H 33 H Creatinine 0.5 L 0.5 L Glucose 128 H 113 H Uric Acid 2.3 L GGT 73 H Alkaline Phosphatase 133 H C-Reactive Protein 22.5 H Albumin 2.8 L Globulin 4.7 H Albumin/Globulin Ratio 0.6 L 07/08/19 07/08/19 07/08/19 17:00 17:00 17:00 WBC 14.1 H RBC 5.71 H Hgb 15.8 H Hct 49.5 H RDW 16.3 H MPV 11.1 H Eos % (Auto) 7.3 H Gran # 9.31 H [place] # (Auto) 1.24 H Eos # (Auto) 1.03 H Lymphocytes % Eosinophils % (Manual) 9 H WBC Morphology Toxic Granulation RBC Morphology Abnorm A Anisocytosis 1+ A Chloride 90 L Carbon Dioxide 36 H Creatinine 0.4 L Glucose 115 H Uric Acid GGT Alkaline Phosphatase C-Reactive Protein 25.4 H Albumin 3.1 L Globulin 5.0 H Albumin/Globulin Ratio 0.6 L Meds: Medications Acetaminophen (Tylenol) 650 mg PO Q6HP PRN PRN Reason: PAIN/FEVER > 101 Hydrocodone Bitart/Acetaminophen ([place] 10/325mg) 1 tab PO Q12HP PRN; Protocol PRN Reason: Pain Last Admin: 07/09/19 07:38 Dose: 1 tab Documented by: Albuterol/Ipratropium (Duoneb) 3 ml NEB Q6HRT [facility] Last Admin: 07/10/19 07:18 Dose: 3 ml Documented by: Albuterol/Ipratropium (Duoneb) 3 ml NEB Q4HP PRN PRN Reason: Shortness Of Breath Aspirin (Aspirin) 81 mg PO DAILY [facility] Last Admin: 07/09/19 09:40 Dose: 81 mg Documented by: Azithromycin (Zithromax) 500 mg PO DAILY [facility]; Protocol Stop: 07/13/19 09:01 [facility] Last Admin: 07/09/19 17:35 Dose: 3.125 mg Documented by: Docusate Sodium (Colace) 100 mg PO BID [facility] Last Admin: 07/09/19 20:49 Dose: Not Given Documented by: Enoxaparin Sodium (Lovenox) 40 mg SQ DAILY [facility] Last Admin: 07/09/19 09:39 Dose: 40 mg Documented by: Furosemide (Lasix) 20 mg PO BID [facility] Last Admin: 07/09/19 20:52 Dose: 20 mg Documented by: Potassium Chloride 40 meq/ (Dextrose) 520 mls @ 130 mls/hr IV UD PRN PRN Reason: Potassium < 3 Magnesium Sulfate (Magnesium Sulfate) 2 gm in 50 mls @ 50 mls/hr IV UD PRN PRN Reason: Magnesium </= 1.6 Vancomycin HCl 1,500 mg/ (Sodium Chloride) 500 mls @ 333.3 mls/hr IV Q12H [facility] Last Infusion: 07/09/19 23:23 Dose: Infused Documented by: Ceftriaxone Sodium 2 gm/ (Dextrose) 50 mls @ 100 mls/hr IV Q24H [facility]; Protocol Last Infusion: 07/09/19 12:56 Dose: Infused Documented by: Lactulose (Cephulac) 20 gm PO DAILYP PRN PRN Reason: Constipation Lisinopril (Zestril) 2.5 mg PO DAILY [facility] Last Admin: 07/09/19 09:40 Dose: 2.5 mg Documented by: Lorazepam (Ativan) 2 mg PO BIDP PRN PRN Reason: Anxiety Methylprednisolone Sodium Succinate (Solu-Medrol) 40 mg IV Q8 [facility] Last Admin: 07/10/19 05:38 Dose: 40 mg Documented by: Montelukast Sodium (Singular) 10 mg PO HS [facility] Last Admin: 07/09/19 20:53 Dose: 10 mg Documented by: Morphine Sulfate (Ms Contin) 60 mg PO TID [facility] Last Admin: 07/09/19 20:53 Dose: 60 mg Documented by: Febuxostat [Uloric] (80 Mg) 1 mg PO QDAY [facility] Last Admin: 07/09/19 09:48 Dose: 1 mg Documented by: Ondansetron HCl (Zofran) 4 mg IV Q4HP PRN PRN Reason: Nausea And Vomiting Polyethylene Glycol (Miralax) 17 gm PO DAILYP PRN PRN Reason: Constipation Potassium Chloride (Kdur) 40 meq PO UD PRN PRN Reason: Potssium is 3-3.5 Potassium Chloride (Kdur) 40 meq PO UD PRN PRN Reason: Potassium < 3 Fluticasone/Salmeterol (Advair 250-50 Diskus) 1 puff INH BID [facility] Last Admin: 07/09/19 20:49 Dose: Not Given Documented by: Senna (Senokot) 2 tab PO DAILYP PRN PRN Reason: Constipation Sodium Chloride (Saline Flush) 10 ml IV Q8 [facility] Last Admin: 07/10/19 05:38 Dose: 10 ml Documented by: Tizanidine HCl (Zanaflex) 4 mg PO TIDP PRN PRN Reason: MUSCLE SPASMS Vancomycin HCl (Vancomycin Per Pharmacy) 1 order IV UD [facility]; Protocol Venlafaxine HCl (Effexor Xr) 150 mg PO DAILY [facility] Last Admin: 07/09/19 09:40 Dose: 150 mg Documented by: Medical - PN: A/P - Time Spent With Patient Total time spent is greater than 50% in coordination of care (as documented) at patient's floor/unit and/or counseling patient: - Narrative A/P Narrative: A: *Acute hypoxic respiratory failure with chronic CO2 retention compensated: 2/2 PNA/Copd -on bipap in ED and cpap 45% -feeling better but slow progress in parameters *PNA (Haemophilus influenza): -leukocytosis improved -resp viral panel neg *AECOPD (3L o2@home): Follows with Dr. 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
[2019-07-10] MEDS: CARVEDILOL 3.125 MG TABLET PO SCH ×2 (07:51→17:01)
[2019-07-10] MEDS: FLUTICASONE/SALMETEROL 250/50 INHALER #14 INH SCH ×2 (09:17→22:00)
[2019-07-10] MEDS: cefTRIAXone 2 GM in DEXTROSE 5% IN WATER 50 ML IV SCH (09:17)
[2019-07-10] MEDS: morphine 30 MG TAB.SR.12H PO SCH ×3 (09:18→22:00)
[2019-07-10] MEDS: VENLAFAXINE 150 MG CAP.XL.24H PO SCH (09:18)
[2019-07-10] MEDS: Febuxostat [Uloric] 80 MG PO SCH (09:18)
[2019-07-10] MEDS: FUROSEMIDE 40 MG TABLET PO SCH ×2 (09:18→22:01)
[2019-07-10] MEDS: LISINOPRIL 5 MG TABLET PO SCH (09:18)
[2019-07-10] MEDS: AZITHROMYCIN 250 MG TABLET PO SCH (09:18)
[2019-07-10] MEDS: DOCUSATE SODIUM 100 MG CAPSULE PO SCH ×2 (09:19→22:00)
[2019-07-10] MEDS: ENOXAPARIN 40 MG/0.4 ML SYRINGE SQ SCH (09:19)
[2019-07-10] MEDS: ASPIRIN 81 MG TAB.CHEW PO SCH (09:19)
[2019-07-10] MEDS ORDERED: ALBUMIN HUMAN 12.5 GM/50 ML BAG IV ONE (10:14)
[2019-07-10] MEDS ORDERED: FUROSEMIDE 40 MG TABLET PO ONE (11:00)
[2019-07-10] MEDS: MONTELUKAST 10 MG TABLET PO SCH (22:01)
[2019-07-11] MEDS: IPRATROPIUM/ALBUTEROL 3 ML AMPUL.NEB NEB SCH ×4 (03:00→19:24)
[2019-07-11] MEDS: 0.9 % SODIUM CHLORIDE 10 ML SYRINGE IV SCH ×5 (05:49→21:11)
[2019-07-11] MEDS: methylPREDNISolone SOD SUCC 40 MG/ML VIAL IV SCH ×3 (06:02→21:11)
--- NOTE | 2019-07-11 07:29 | Internal Med Progress Note ---
Medical - PN: Subj Patient information: Note initiated : 07/11/19 at 7:26 am Service Date, if different from initiated Date: [] Patient: Grace Canales a 59 y/o F admitted on 07/08/19 for Shortness of Breath. Chief Complaint: [] Interval history: Ms. Canales is a 59 year old F Presents the ED with increasing shortness of breath and cough different from baseline over the past couple days. 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 She follows with Dr. Bray. She is been admitted in March and April last year for COPD exacerbation. She had a chest x-ray and CT which showed lymphadenopathy and widespread bilateral infiltrates. Subsequent PET CT done by Dr. Bray which showed some pulmonary fibrosis and improved lymphadenopathy. She wears 3 L of oxygen day and night but over the past week is been wearing 5 L . She denies fevers or chills. She has chronic cough but she says is more productive lately, yellow-green sputum. She always feels wheezy. She arrived in the ED she had sats in the mid 80s on 5 L and she appeared to be in respiratory distress with an ABG noted to have elevated CO2 although her pH was compensated. She is placed on a BiPAP. She received breathing treatment as well as steroids. She feels comfortable on the BiPAP and much improved. She quit smoking about a month ago and then started smoking a little bit lately but not very much, maybe half a pack in a week. She also noted to have leukocytosis. Chest x-ray reported as white but infiltrate. Be worse from April imaging. She has a mild leukocytosis at 14 and an elevated CRP of 25. Denies chest pain. 3/4 Did not tolerate nasal cannula this morning was put back on BiPAP. Recently changed to CPAP setting primarily hypoxic issue. Patient does feel better and feels breathing is better. Her cough is more productive of clear sputum and breaking up and feels better to her. No shortness of breath in bed on the mask at this time. Leukocytosis improved. Respiratory viral panel negative. 3/5 Feeling better today. Able to take deeper breaths. Improved shortness of breath. Cough feels to be improving per her and is productive of white sputum. No other pains or complaints. Still on CPAP. By pulmonology last night. 3/6 Productive cough. She has chronic shortness of breath so she states is hard to tell if she is improved or not. However she is now on 15 L high flow good saturations which is changed from requiring CPAP and not tolerating high flow yesterday. Decreased leg swelling today. Was given some extra IV Lasix yesterday. Review of Systems: denies headache/fever/chills/nausea/vomiting/chest or abdominal pain/diarrhea. Otherwise see above. - Constitutional Vitals: Vital Signs Temp Pulse Resp BP Pulse Ox 97.5 F 73 20 129/76 94 07/11/19 04:01 07/11/19 06:58 07/11/19 06:58 07/11/19 04:01 07/11/19 06:58 Period Temp Pulse Resp BP Sys/Riggins Pulse Ox Last 24 Hr 97.5 F-99.2 F 65-93 15-24 126-137/70-91 82-96 Intake and Output 07/10/19 07/11/19 07/11/19 21:59 05:59 13:59 Intake Total 1200 300 Output Total 1675 1200 Balance -475 -900 Weight 111.221 kg Intake & Output: Intake & Output 07/10/19 07/11/19 07/11/19 21:59 05:59 13:59 Intake Total 1200 300 Output Total 1675 1200 Balance -475 -900 Weight 111.221 kg Intake: Oral 1200 300 Output: Void Amount 1675 1200 Other: Meal Dinner Percent of Meal Consumed 75% Urine Appearance Clear Urine Color Bright Yellow Bright Yellow Urine Odor Normal Exam: General: Alert, Awake, No acute Distress, obese Eyes/N/T: EOMI, Head/Neck: neck supple, CV: RRR, No murmurs, Pulm: mild b/l wheezing improving, mild rhonchi b/l, prolonged expiratory phase, Abd: soft, nontender, +BS x4 Ext: no clubbing/cyanosis, 1+ b/l LE edema chronic Neuro: Alert, no focal deficits, moves all extremities, Skin: warm/dry Medical - PN: Obj Da - Labs CBC & Chem 7: 07/09/19 05:05 07/11/19 05:05 Labs: Abnormal Lab Results 03/05/20 03/04/20 03/04/20 05:10 05:05 05:05 WBC RBC Hgb Hct 46.7 H RDW 16.2 H MPV 12.1 H Eos % (Auto) Gran # [place] # (Auto) Eos # (Auto) Lymphocytes % 10 L Eosinophils % (Manual) WBC Morphology Abnorm A Toxic Granulation 1+ A RBC Morphology Anisocytosis Chloride 94 L Carbon Dioxide 38 H 33 H Creatinine 0.5 L 0.5 L Glucose 128 H 113 H Uric Acid 2.3 L GGT 73 H Alkaline Phosphatase 133 H C-Reactive Protein 22.5 H Albumin 2.8 L Globulin 4.7 H Albumin/Globulin Ratio 0.6 L 07/08/19 07/08/19 07/08/19 17:00 17:00 17:00 WBC 14.1 H RBC 5.71 H Hgb 15.8 H Hct 49.5 H RDW 16.3 H MPV 11.1 H Eos % (Auto) 7.3 H Gran # 9.31 H [place] # (Auto) 1.24 H Eos # (Auto) 1.03 H Lymphocytes % Eosinophils % (Manual) 9 H WBC Morphology Toxic Granulation RBC Morphology Abnorm A Anisocytosis 1+ A Chloride 90 L Carbon Dioxide 36 H Creatinine 0.4 L Glucose 115 H Uric Acid GGT Alkaline Phosphatase C-Reactive Protein 25.4 H Albumin 3.1 L Globulin 5.0 H Albumin/Globulin Ratio 0.6 L Meds: Medications Acetaminophen (Tylenol) 650 mg PO Q6HP PRN PRN Reason: PAIN/FEVER > 101 Hydrocodone Bitart/Acetaminophen ([place] 10/325mg) 1 tab PO Q12HP PRN; Protocol PRN Reason: Pain Last Admin: 07/09/19 07:38 Dose: 1 tab Documented by: Albuterol/Ipratropium (Duoneb) 3 ml NEB Q6HRT [facility] Last Admin: 07/11/19 06:51 Dose: 3 ml Documented by: Albuterol/Ipratropium (Duoneb) 3 ml NEB Q4HP PRN PRN Reason: Shortness Of Breath Aspirin (Aspirin) 81 mg PO DAILY [facility] Last Admin: 07/10/19 09:19 Dose: 81 mg Documented by: Azithromycin (Zithromax) 500 mg PO DAILY [facility]; Protocol Stop: 07/13/19 09:01 Last Admin: 07/10/19 09:18 Dose: 500 mg Documented by: Carvedilol (Coreg) 3.125 mg PO BIDCC [facility] Last Admin: 07/10/19 17:01 Dose: 3.125 mg Documented by: Docusate Sodium (Colace) 100 mg PO BID [facility] Last Admin: 07/10/19 22:00 Dose: 100 mg Documented by: Enoxaparin Sodium (Lovenox) 40 mg SQ DAILY [facility] Last Admin: 07/10/19 09:19 Dose: 40 mg Documented by: Furosemide (Lasix) 20 mg PO BID [facility] Last Admin: 07/10/19 22:01 Dose: 20 mg Documented by: Potassium Chloride 40 meq/ (Dextrose) 520 mls @ 130 mls/hr IV UD PRN PRN Reason: Potassium < 3 Magnesium Sulfate (Magnesium Sulfate) 2 gm in 50 mls @ 50 mls/hr IV UD PRN PRN Reason: Magnesium </= 1.6 Ceftriaxone Sodium 2 gm/ (Dextrose) 50 mls @ 100 mls/hr IV Q24H [facility]; Protocol Last Infusion: 07/10/19 09:50 Dose: Infused Documented by: Lactulose (Cephulac) 20 gm PO DAILYP PRN PRN Reason: Constipation Lisinopril (Zestril) 2.5 mg PO DAILY [facility] Last Admin: 07/10/19 09:18 Dose: 2.5 mg Documented by: Lorazepam (Ativan) 2 mg PO BIDP PRN PRN Reason: Anxiety Methylprednisolone Sodium Succinate (Solu-Medrol) 20 mg IV Q8 [facility] Last Admin: 07/11/19 06:02 Dose: 20 mg Documented by: Montelukast Sodium (Singular) 10 mg PO HS [facility] Last Admin: 07/10/19 22:01 Dose: 10 mg Documented by: Morphine Sulfate (Ms Contin) 60 mg PO TID [facility] Last Admin: 07/10/19 22:00 Dose: 60 mg Documented by: Febuxostat [Uloric] (80 Mg) 1 mg PO QDAY [facility] Last Admin: 07/10/19 09:18 Dose: 1 mg Documented by: Ondansetron HCl (Zofran) 4 mg IV Q4HP PRN PRN Reason: Nausea And Vomiting Polyethylene Glycol (Miralax) 17 gm PO DAILYP PRN PRN Reason: Constipation Potassium Chloride (Kdur) 40 meq PO UD PRN PRN Reason: Potssium is 3-3.5 Potassium Chloride (Kdur) 40 meq PO UD PRN PRN Reason: Potassium < 3 Fluticasone/Salmeterol (Advair 250-50 Diskus) 1 puff INH BID [facility] Last Admin: 07/10/19 22:00 Dose: Not Given Documented by: Senna (Senokot) 2 tab PO DAILYP PRN PRN Reason: Constipation Sodium Chloride (Saline Flush) 10 ml IV Q8 [facility] Last Admin: 07/11/19 05:49 Dose: 10 ml Documented by: Tizanidine HCl (Zanaflex) 4 mg PO TIDP PRN PRN Reason: MUSCLE SPASMS Venlafaxine HCl (Effexor Xr) 150 mg PO DAILY [facility] Last Admin: 07/10/19 09:18 Dose: 150 mg Documented by: Medical - PN: A/P - Time Spent With Patient Total time spent is greater than 50% in coordination of care (as documented) at patient's floor/unit and/or counseling patient: - Narrative A/P Narrative: A: *Acute hypoxic respiratory failure with chronic CO2 retention compensated: 2/2 PNA/Copd -on bipap in ED, now 15L [place] with good sats -feeling better but slow progress in parameters *PNA (Haemophilus influenza): -leukocytosis improved -resp viral panel neg *AECOPD (3L o2@home): Follows with Dr. 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
[2019-07-11 07:56] LABS: Bilirubin,Direct < 0.2 mg/dL (0.0-0.3); Chloride 97 mmol/L (96-108)
[2019-07-11 07:58] LABS: ALT/SGPT 7 U/l (0-40); AST/SGOT 15 U/l (0-37); Albumin/Globulin Ratio 0.6 (1.0-2.3); Alkaline Phosphatase 108 U/L (39-117); Bilirubin,Total 0.2 mg/dL (0.0-1.0); Blood Urea Nitrogen 16 mg/dl (6-20); Calcium 10.2 mg/dl (8.6-10.4); Carbon Dioxide 32 mmol/L (22-30); Glomerular Filtration Rate 101; Glucose 125 mg/dL (70-105); Lactate Dehydrogenase 244 U/L (94-250); Phosphorous 3.8 mg/dL (2.7-4.5); Triglycerides 93 mg/dl (<150); Uric Acid 2.2 mg/dL (2.5-8.0)
[2019-07-11] MEDS ORDERED: FUROSEMIDE 20 MG/2 ML VIAL IV ONE (09:05)
[2019-07-11] MEDS: ENOXAPARIN 40 MG/0.4 ML SYRINGE SQ SCH (09:37)
[2019-07-11] MEDS: cefTRIAXone 2 GM in DEXTROSE 5% IN WATER 50 ML IV SCH (09:39)
[2019-07-11] MEDS: morphine 30 MG TAB.SR.12H PO SCH ×3 (09:40→20:35)
[2019-07-11] MEDS: CARVEDILOL 3.125 MG TABLET PO SCH ×2 (09:41→17:12)
[2019-07-11] MEDS: AZITHROMYCIN 250 MG TABLET PO SCH (09:41)
[2019-07-11] MEDS: FUROSEMIDE 40 MG TABLET PO SCH ×2 (09:41→20:33)
[2019-07-11] MEDS: ASPIRIN 81 MG TAB.CHEW PO SCH (09:41)
[2019-07-11] MEDS: DOCUSATE SODIUM 100 MG CAPSULE PO SCH ×2 (09:41→20:33)
[2019-07-11] MEDS: VENLAFAXINE 150 MG CAP.XL.24H PO SCH (09:41)
[2019-07-11] MEDS: Febuxostat [Uloric] 80 MG PO SCH (09:45)
[2019-07-11] MEDS: FLUTICASONE/SALMETEROL 250/50 INHALER #14 INH SCH ×3 (11:16→20:33)
[2019-07-11] MEDS: MONTELUKAST 10 MG TABLET PO SCH (20:34)
[2019-07-12] MEDS: IPRATROPIUM/ALBUTEROL 3 ML AMPUL.NEB NEB SCH ×4 (01:00→19:15)
[2019-07-12] MEDS: methylPREDNISolone SOD SUCC 40 MG/ML VIAL IV SCH ×3 (05:07→21:15)
[2019-07-12] MEDS: 0.9 % SODIUM CHLORIDE 10 ML SYRINGE IV SCH ×5 (05:48→21:15)
[2019-07-12 07:19] LABS: ALT/SGPT 7 U/l (0-40); AST/SGOT 10 U/l (0-37); Albumin 3.1 gm/dL (3.2-5.2); Albumin/Globulin Ratio 0.8 (1.0-2.3); Alkaline Phosphatase 85 U/L (39-117); Bilirubin,Direct < 0.2 mg/dL (0.0-0.3); Bilirubin,Total 0.3 mg/dL (0.0-1.0); Blood Urea Nitrogen 17 mg/dl (6-20); Calcium 9.6 mg/dl (8.6-10.4); Carbon Dioxide 36 mmol/L (22-30); Chloride 96 mmol/L (96-108); Glomerular Filtration Rate 101; Glucose 113 mg/dL (70-105); Lactate Dehydrogenase 135 U/L (94-250); Phosphorous 3.4 mg/dL (2.7-4.5); Triglycerides 106 mg/dl (<150); Uric Acid 2.5 mg/dL (2.5-8.0)
[2019-07-12] MEDS: cefTRIAXone 2 GM in DEXTROSE 5% IN WATER 50 ML IV SCH (09:12)
[2019-07-12] MEDS: FLUTICASONE/SALMETEROL 250/50 INHALER #14 INH SCH ×2 (09:12→21:11)
[2019-07-12] MEDS: CARVEDILOL 3.125 MG TABLET PO SCH (09:13)
[2019-07-12] MEDS: ASPIRIN 81 MG TAB.CHEW PO SCH (09:13)
[2019-07-12] MEDS: FUROSEMIDE 40 MG TABLET PO SCH ×2 (09:13→21:14)
[2019-07-12] MEDS: Febuxostat [Uloric] 80 MG PO SCH (09:13)
[2019-07-12] MEDS: ENOXAPARIN 40 MG/0.4 ML SYRINGE SQ SCH (09:13)
[2019-07-12] MEDS: DOCUSATE SODIUM 100 MG CAPSULE PO SCH ×2 (09:13→21:12)
[2019-07-12] MEDS: VENLAFAXINE 150 MG CAP.XL.24H PO SCH (09:14)
[2019-07-12] MEDS: morphine 30 MG TAB.SR.12H PO SCH ×3 (09:14→21:14)
[2019-07-12] MEDS: AZITHROMYCIN 250 MG TABLET PO SCH (09:14)
[2019-07-12] MEDS ORDERED: ALBUTEROL SULFATE 1 PUFF INHALER INH PRN ×2 (10:24→18:40)
[2019-07-12 13:10] LABS: Basophils # (Auto) 0.02 K/mcL (0.00-0.30); Basophils % (Auto) 0.3 % (0.0-2.0); Eosinophils # (Auto) 0.01 K/mcL (0.00-0.70); Eosinophils % (Auto) 0.1 % (0.0-7.0); Granulocytes % (Auto) 73.5 % (38.0-78.0); Hematocrit 50.6 % (34.1-44.9); Hemoglobin 16.2 g/dL (11.2-15.7); Lymphocytes # (Auto) 1.41 K/mcL (1.50-4.80); Lymphocytes % (Auto) 19.4 % (15.5-49.0); Mean Cell Volume 87.2 fL (80.0-100.0); Mean Platelet Volume 11.2 fL (7.4-10.4); Monocytes # (Auto) 0.49 K/mcL (0.10-0.90); Monocytes % (Auto) 6.7 % (1.0-12.0); Platelet Count 262 K/mcL (140-440); Red Cell Distribution Width 16.1 % (11.5-14.5); WBC 7.3 K/mcL (4.50-11.00)
[2019-07-12] MEDS ORDERED: IPRATROPIUM/ALBUTEROL 3 ML AMPUL.NEB NEB PRN (18:40)
[2019-07-12] MEDS ORDERED: ACETAMINOPHEN 325 MG TABLET PO PRN (18:40)
[2019-07-12] MEDS ORDERED: HYDROcodone/APAP 10/325MG TABLET PO PRN (18:40)
[2019-07-12] MEDS ORDERED: tiZANidine 4 MG TABLET PO PRN (18:40)
[2019-07-12] MEDS ORDERED: MAGNESIUM SULFATE 2 GM/50 ML BAG IV PRN (18:40)
[2019-07-12] MEDS ORDERED: POLYETHYLENE GLYCOL 3350 17 GM PACKET PO PRN (18:40)
[2019-07-12] MEDS ORDERED: LACTULOSE 20 GM/30 ML ORAL.SOL PO PRN (18:40)
[2019-07-12] MEDS ORDERED: ONDANSETRON 4 MG/2 ML VIAL IV PRN (18:40)
--- NOTE | 2019-07-12 20:06 | Internal Med Progress Note ---
Medical - PN: Subj Patient information: Note initiated : 07/12/19 at 8:03 pm Service Date, if different from initiated Date: [] Patient: Grace Canales a 59 y/o F admitted on 07/08/19 for Shortness of Breath. Chief Complaint: [] Interval history: Ms. Canales is a 59 year old F Presents the ED with increasing shortness of breath and cough different from baseline over the past couple days. 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 She follows with Dr. Bray. She is been admitted in March and April last year for COPD exacerbation. She had a chest x-ray and CT which showed lymphadenopathy and widespread bilateral infiltrates. Subsequent PET CT done by Dr. Bray which showed some pulmonary fibrosis and improved lymphadenopathy. She wears 3 L of oxygen day and night but over the past week is been wearing 5 L . She denies fevers or chills. She has chronic cough but she says is more productive lately, yellow-green sputum. She always feels wheezy. She arrived in the ED she had sats in the mid 80s on 5 L and she appeared to be in respiratory distress with an ABG noted to have elevated CO2 although her pH was compensated. She is placed on a BiPAP. She received breathing treatment as well as steroids. She feels comfortable on the BiPAP and much improved. She quit smoking about a month ago and then started smoking a little bit lately but not very much, maybe half a pack in a week. She also noted to have leukocytosis. Chest x-ray reported as white but infiltrate. Be worse from April imaging. She has a mild leukocytosis at 14 and an elevated CRP of 25. Denies chest pain. 3/4 Did not tolerate nasal cannula this morning was put back on BiPAP. Recently changed to CPAP setting primarily hypoxic issue. Patient does feel better and feels breathing is better. Her cough is more productive of clear sputum and breaking up and feels better to her. No shortness of breath in bed on the mask at this time. Leukocytosis improved. Respiratory viral panel negative. 3/5 Feeling better today. Able to take deeper breaths. Improved shortness of breath. Cough feels to be improving per her and is productive of white sputum. No other pains or complaints. Still on CPAP. By pulmonology last night. 3/6 Productive cough. She has chronic shortness of breath so she states is hard to tell if she is improved or not. However she is now on 15 L high flow good saturations which is changed from requiring CPAP and not tolerating high flow yesterday. Decreased leg swelling today. Was given some extra IV Lasix yesterday. 07/11 Does not have any new complaints. But still complains of cough and shortness of breath. No overnight events Review of Systems: denies headache/fever/chills/nausea/vomiting/chest or abdominal pain/diarrhea. Otherwise see above. - Constitutional Vitals: Vital Signs Temp Pulse Resp BP Pulse Ox 98.0 F 73 20 134/75 91 07/12/19 16:07 07/12/19 16:07 07/12/19 16:07 07/12/19 16:07 07/12/19 16:07 Period Temp Pulse Resp BP Sys/Riggins Pulse Ox Last 24 Hr 97.1 F-98.8 F 51-150 14-28 133-158/75-93 88-100 Intake and Output 07/12/19 07/12/19 07/12/19 05:59 13:59 21:59 Intake Total 400 1430 240 Output Total 1700 250 Balance 400 -270 -10 Intake & Output: Intake & Output 07/12/19 07/12/19 07/12/19 05:59 13:59 21:59 Intake Total 400 1430 240 Output Total 1700 250 Balance 400 -270 -10 Intake: IV 50 Rocephin 2 gm In Dextrose 5% in 50 Water 50 ml @ 100 mls/hr IV Q24H [facility] Rx#:[id number] Oral 400 1380 240 Output: Void Amount 1700 250 Other: Meal Lunch Percent of Meal Consumed 50% Feeding Ability Independent Urine Appearance Clear Clear Urine Color Light Marita Dark Yellow Urine Odor Strong - Additional findings Additional findings: General: Alert, Awake, No acute Distress, obese Eyes/N/T: EOMI, Head/Neck: neck supple, CV: RRR, No murmurs, Pulm: silent lung but mild rhonchi b/l with expiration, prolonged expiratory phase, Abd: soft, nontender, +BS x4 Ext: no clubbing/cyanosis, 1+ b/l LE edema chronic Neuro: Alert, no focal deficits, moves all extremities, Skin: warm/dry Psych: normal mood Medical - PN: Obj Da - Labs CBC & Chem 7: 07/12/19 10:40 07/12/19 05:00 Labs: Abnormal Lab Results 07/12/19 07/12/19 07/11/19 10:40 05:00 05:05 RBC 5.80 H Hgb 16.2 H Hct 50.6 H RDW 16.1 H MPV 11.2 H Lymph # (Auto) 1.41 L Potassium 5.4 H Carbon Dioxide 36 H 32 H Creatinine Glucose 113 H 125 H Uric Acid 2.2 L GGT 55 H 57 H Albumin 3.1 L 3.0 L Globulin 4.0 H 5.0 H Albumin/Globulin Ratio 0.8 L 0.6 L 07/10/19 05:10 RBC Hgb Hct RDW MPV Lymph # (Auto) Potassium Carbon Dioxide 38 H Creatinine 0.5 L Glucose 128 H Uric Acid GGT Albumin Globulin Albumin/Globulin Ratio Meds: Medications Acetaminophen (Tylenol) 650 mg PO Q6HP PRN PRN Reason: PAIN/FEVER > 101 Hydrocodone Bitart/Acetaminophen ([place] 10/325mg) 1 tab PO Q12HP PRN; Protocol PRN Reason: Pain Albuterol Sulfate (Ventolin) 2 puff INH Q4HP PRN PRN Reason: Shortness Of Breath Albuterol/Ipratropium (Duoneb) 3 ml NEB Q4HP PRN PRN Reason: Shortness Of Breath Albuterol/Ipratropium (Duoneb) 3 ml NEB Q6HRT [facility] Last Admin: 07/12/19 19:15 Dose: 3 ml Documented by: Aspirin (Aspirin) 81 mg PO DAILY [facility] Docusate Sodium (Colace) 100 mg PO BID [facility] Enoxaparin Sodium (Lovenox) 40 mg SQ DAILY [facility] Furosemide (Lasix) 20 mg PO BID [facility] Ceftriaxone Sodium 2 gm/ (Dextrose) 50 mls @ 100 mls/hr IV Q24H [facility]; Protocol Magnesium Sulfate (Magnesium Sulfate) 2 gm in 50 mls @ 50 mls/hr IV UD PRN PRN Reason: Magnesium </= 1.6 Lactulose (Cephulac) 20 gm PO DAILYP PRN PRN Reason: Constipation Lorazepam (Ativan) 2 mg PO BIDP PRN PRN Reason: Anxiety Methylprednisolone Sodium Succinate (Solu-Medrol) 20 mg IV Q8 [facility] Metoprolol Tartrate (Lopressor) 12.5 mg PO BID [facility] Montelukast Sodium (Singular) 10 mg PO HS [facility] Morphine Sulfate (Ms Contin) 60 mg PO TID [facility] Febuxostat [Uloric] (80 Mg) 80 mg PO QDAY [facility] Ondansetron HCl (Zofran) 4 mg IV Q4HP PRN PRN Reason: Nausea And Vomiting Polyethylene Glycol (Miralax) 17 gm PO DAILYP PRN PRN Reason: Constipation Fluticasone/Salmeterol (Advair 250-50 Diskus) 1 puff INH BID [facility] Senna (Senokot) 2 tab PO DAILYP PRN PRN Reason: Constipation Sodium Chloride (Saline Flush) 10 ml IV Q8 [facility] Tizanidine HCl (Zanaflex) 4 mg PO TIDP PRN PRN Reason: MUSCLE SPASMS Venlafaxine HCl (Effexor Xr) 150 mg PO DAILY [facility] Medical - PN: A/P - Time Spent With Patient Total time spent is greater than 50% in coordination of care (as documented) at patient's floor/unit and/or counseling patient: - Narrative A/P Narrative: Assessment: 1. Acute hypoxic respiratory failure with chronic CO2 retention compensated: 2/2 PNA/Copd -on bipap in ED, now on high flow with good sats 2. PNA (Haemophilus influenza): -leukocytosis resolved -resp viral panel neg -sputum culture - positive for ampicillin resistant Haemophilus influenzae 3. AECOPD (3L o2@home): Follows with Dr. Bray 4. Chronic metabolic alkalosis: 2/2 above 5. 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 h/o systolic CHF(30% EF march): Follows with [facility] cardiology 7. Anxiety: 8. HTN: 9. Tobacco abuse: 10. Obesity: 11. chr pain: P: 1. trying to wean O2 as able -Discontinued azithromycin and continue rocephin -steroids(wean)/nebs/RT -IS/acapella -seen by [employer] 2. Continue home BB, continue home Lasix 3. held ACEI for hyperkalemia 4. Continue home anxiety medication 5. PT/OT 6. Smoking cessation counseling 7. f/u with pulomology outpt and sleep study 8. ppx: Lovenox full code Medical - PN: Qual - Stroke Symptom Onset Unknown: No - VTE Deep Vein Thrombosis/Pulmonary Embolism Present on Admission: No
[2019-07-12] MEDS ORDERED: METOPROLOL TARTRATE 25 MG TABLET PO SCH (21:00)
[2019-07-12] MEDS: METOPROLOL TARTRATE 25 MG TABLET PO SCH (21:12)
[2019-07-12] MEDS: MONTELUKAST 10 MG TABLET PO SCH (21:14)
[2019-07-13] MEDS: IPRATROPIUM/ALBUTEROL 3 ML AMPUL.NEB NEB SCH ×4 (01:24→19:03)
[2019-07-13] MEDS: 0.9 % SODIUM CHLORIDE 10 ML SYRINGE IV SCH ×3 (05:43→22:33)
[2019-07-13] MEDS: methylPREDNISolone SOD SUCC 40 MG/ML VIAL IV SCH ×3 (05:44→22:23)
[2019-07-13] MEDS: Febuxostat [Uloric] 80 MG PO SCH ×2 (07:14→10:01)
[2019-07-13 08:05] LABS: ALT/SGPT 21 U/l (0-40); AST/SGOT 25 U/l (0-37); Albumin 3.5 gm/dL (3.2-5.2); Albumin/Globulin Ratio 0.9 (1.0-2.3); Alkaline Phosphatase 81 U/L (39-117); Bilirubin,Total 0.4 mg/dL (0.0-1.0); Blood Urea Nitrogen 15 mg/dl (6-20); Calcium 9.5 mg/dl (8.6-10.4); Carbon Dioxide 38 mmol/L (22-30); Globulin 3.9 gm/dL (2.2-3.7); Glomerular Filtration Rate 107; Glucose 102 mg/dL (70-105)
[2019-07-13 08:16] LABS: Basophils # (Auto) 0.03 K/mcL (0.00-0.30); Basophils % (Auto) 0.4 % (0.0-2.0); Eosinophils # (Auto) 0.04 K/mcL (0.00-0.70); Eosinophils % (Auto) 0.5 % (0.0-7.0); Granulocytes % (Auto) 64.2 % (38.0-78.0); Hematocrit 56.3 % (34.1-44.9); Hemoglobin 17.9 g/dL (11.2-15.7); Lymphocytes # (Auto) 2.32 K/mcL (1.50-4.80); Mean Cell Volume 86.6 fL (80.0-100.0); Mean Corpuscular HGB Conc 31.8 g/dL (31.0-36.0); Mean Platelet Volume 10.6 fL (7.4-10.4); Monocytes # (Auto) 0.57 K/mcL (0.10-0.90); Monocytes % (Auto) 6.9 % (1.0-12.0); Red Cell Distribution Width 17.2 % (11.5-14.5); WBC 8.3 K/mcL (4.50-11.00)
[2019-07-13 08:19] LABS: Chloride 93 mmol/L (96-108)
[2019-07-13 08:58] LABS: Platelet Count 179 K/mcL (140-440)
[2019-07-13] MEDS: cefTRIAXone 2 GM VIAL ONE ×2 (09:53→09:56)
[2019-07-13] MEDS: ENOXAPARIN 40 MG/0.4 ML SYRINGE SQ SCH (09:53)
[2019-07-13] MEDS: ASPIRIN 81 MG TAB.CHEW PO SCH (09:54)
[2019-07-13] MEDS: FUROSEMIDE 40 MG TABLET PO SCH ×2 (09:54→22:18)
[2019-07-13] MEDS: SENNOSIDES 1 TABLET PO PRN (09:54)
[2019-07-13] MEDS: VENLAFAXINE 150 MG CAP.XL.24H PO SCH (09:54)
[2019-07-13] MEDS: morphine 30 MG TAB.SR.12H PO SCH ×3 (09:55→22:20)
[2019-07-13] MEDS: METOPROLOL TARTRATE 25 MG TABLET PO SCH ×2 (09:55→22:22)
[2019-07-13] MEDS: DOCUSATE SODIUM 100 MG CAPSULE PO SCH ×2 (09:55→22:19)
[2019-07-13] MEDS: cefTRIAXone 2 GM in DEXTROSE 5% IN WATER 50 ML IV SCH (10:01)
[2019-07-13] MEDS: FLUTICASONE/SALMETEROL 250/50 INHALER #14 INH SCH ×2 (10:01→22:18)
--- NOTE | 2019-07-13 17:16 | Internal Med Progress Note ---
Medical - PN: Subj Patient information: Note initiated : 07/13/19 at 5:13 pm Service Date, if different from initiated Date: [] Patient: Grace Canales a 59 y/o F admitted on 07/08/19 for Shortness of Breath. Chief Complaint: [] Interval history: Ms. Canales is a 59 year old F Presents the ED with increasing shortness of breath and cough different from baseline over the past couple days. 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 She follows with Dr. Bray. She is been admitted in March and April last year for COPD exacerbation. She had a chest x-ray and CT which showed lymphadenopathy and widespread bilate ral infiltrates. Subsequent PET CT done by Dr. Bray which showed some pulmonary fibrosis and improved lymphadenopathy. She wears 3 L of oxygen day and night but over the past week is been wearing 5 L. She denies fevers or chills. She has chronic cough but she says is more productive lately, yellow-green sputum. She always feels wheezy. She arrived in the ED she had sats in the mid 80s on 5 L and she appeared to be in respiratory distress with an ABG noted to have elevated CO2 although her pH was compensated. She is placed on a BiPAP. She received breathing treatment as well as steroids. She feels comfortable on the BiPAP and much improved. She quit smoking about a month ago and then started smoking a little bit lately but not very much, maybe half a pack in a week. She also noted to have leukocytosis. Chest x-ray reported as white but infiltrate. Be worse from April imaging. She has a mild leukocytosis at 14 and an elevated CRP of 25. Denies chest pain. 3/4 Did not tolerate nasal cannula this morning was put back on BiPAP. Recently changed to CPAP setting primarily hypoxic issue. Patient does feel better and feels breathing is better. Her cough is more productive of clear sputum and breaking up and feels better to her. No shortness of breath in bed on the mask at this time. Leukocytosis improved. Respiratory viral panel negative. 3/5 Feeling better today. Able to take deeper breaths. Improved shortness of breath. Cough feels to be improving per her and is productive of white sputum. No other pains or complaints. Still on CPAP. By pulmonology last night. 07/10 Productive cough. She has chronic shortness of breath so she states is hard to tell if she is improved or not. However she is now on 15 L high flow good saturations which is changed from requiring CPAP and not tolerating high flow yesterday. Decreased leg swelling today. Was given some extra IV Lasix yesterday. 07/11 Does not have any new complaints. But still complains of cough and shortness of breath. No overnight events 07/12 Pt still has some sob. SpO2 > = 90% on 4-6L this afternoon. Review of Systems: denies headache/fever/chills/nausea/vomiting/chest or abdominal pain/diarrhea. Otherwise see above. - Constitutional Vitals: Vital Signs Temp Pulse Resp BP Pulse Ox 98.5 F 79 15 145/92 91 07/13/19 16:01 07/13/19 13:21 07/13/19 16:01 07/13/19 16:01 07/13/19 16:01 Period Temp Pulse Resp BP Sys/Riggins Pulse Ox Last 24 Hr 97.1 F-98.5 F 59-79 12-23 126-146/83-114 90-99 Intake and Output 07/13/19 07/13/19 07/13/19 05:59 13:59 21:59 Intake Total 1150 240 Output Total 650 Balance 500 240 Weight Intake & Output: Intake & Output 07/13/19 07/13/19 07/13/19 05:59 13:59 21:59 Intake Total 1150 240 Output Total 650 Balance 500 240 Weight Intake: IV 50 Rocephin 2 gm In Dextrose 5% in 50 Water 50 ml @ 100 mls/hr IV Q24H [facility] Rx#:[id number] Oral 1100 240 Output: Void Amount 650 Other: Meal Lunch Percent of Meal Consumed 25% Feeding Ability Independent Urine Appearance Urine Color Urine Odor # Bowel Movements 1 - Additional findings Additional findings: General: Alert, Awake, No acute Distress, obese Eyes/N/T: EOMI, Head/Neck: neck supple, CV: RRR, No murmurs, Pulm: silent lung but mild rhonchi b/l with expiration, prolonged expiratory phase, Abd: soft, nontender, +BS x4 Ext: no clubbing/cyanosis, 1+ b/l LE edema chronic Neuro: Alert, no focal deficits, moves all extremities, Skin: warm/dry Psych: normal mood Medical - PN: Obj Da - Labs CBC & Chem 7: 07/13/19 06:20 07/13/19 06:20 Labs: Abnormal Lab Results 07/13/19 07/13/19 07/12/19 06:20 06:20 10:40 RBC 6.50 H 5.80 H Hgb 17.9 H 16.2 H Hct 56.3 H 50.6 H RDW 17.2 H 16.1 H MPV 10.6 H 11.2 H Lymph # (Auto) 1.41 L Potassium Chloride 93 L Carbon Dioxide 38 H Creatinine 0.5 L Glucose Uric Acid GGT Albumin Globulin 3.9 H Albumin/Globulin Ratio 0.9 L 07/12/19 07/11/19 05:00 05:05 RBC Hgb Hct RDW MPV Lymph # (Auto) Potassium 5.4 H Chloride Carbon Dioxide 36 H 32 H Creatinine Glucose 113 H 125 H Uric Acid 2.2 L GGT 55 H 57 H Albumin 3.1 L 3.0 L Globulin 4.0 H 5.0 H Albumin/Globulin Ratio 0.8 L 0.6 L Meds: Medications Acetaminophen (Tylenol) 650 mg PO Q6HP PRN PRN Reason: PAIN/FEVER > 101 Hydrocodone Bitart/Acetaminophen ([place] 10/325mg) 1 tab PO Q12HP PRN; Protocol PRN Reason: Pain Albuterol Sulfate (Ventolin) 2 puff INH Q4HP PRN PRN Reason: Shortness Of Breath Albuterol/Ipratropium (Duoneb) 3 ml NEB Q4HP PRN PRN Reason: Shortness Of Breath Albuterol/Ipratropium (Duoneb) 3 ml NEB Q6HRT [facility] Last Admin: 07/13/19 13:21 Dose: 3 ml Documented by: Aspirin (Aspirin) 81 mg PO DAILY [facility] Last Admin: 07/13/19 09:54 Dose: 81 mg Documented by: Docusate Sodium (Colace) 100 mg PO BID [facility] Last Admin: 07/13/19 09:55 Dose: 100 mg Documented by: Enoxaparin Sodium (Lovenox) 40 mg SQ DAILY [facility] Last Admin: 07/13/19 09:53 Dose: 40 mg Documented by: Furosemide (Lasix) 20 mg PO BID [facility] Last Admin: 07/13/19 09:54 Dose: 20 mg Documented by: Ceftriaxone Sodium 2 gm/ (Dextrose) 50 mls @ 100 mls/hr IV Q24H [facility]; Protocol Last Infusion: 07/13/19 10:35 Dose: Infused Documented by: Magnesium Sulfate (Magnesium Sulfate) 2 gm in 50 mls @ 50 mls/hr IV UD PRN PRN Reason: Magnesium </= 1.6 Lactulose (Cephulac) 20 gm PO DAILYP PRN PRN Reason: Constipation Last Admin: 07/13/19 09:53 Dose: 20 gm Documented by: Lorazepam (Ativan) 2 mg PO BIDP PRN PRN Reason: Anxiety Methylprednisolone Sodium Succinate (Solu-Medrol) 20 mg IV Q8 [facility] Last Admin: 07/13/19 15:42 Dose: 20 mg Documented by: Metoprolol Tartrate (Lopressor) 12.5 mg PO BID [facility] Last Admin: 07/13/19 09:55 Dose: 12.5 mg Documented by: Montelukast Sodium (Singular) 10 mg PO HS [facility] Last Admin: 07/12/19 21:14 Dose: 10 mg Documented by: Morphine Sulfate (Ms Contin) 60 mg PO TID [facility] Last Admin: 07/13/19 15:42 Dose: 60 mg Documented by: Febuxostat [Uloric] (80 Mg) 80 mg PO QDAY [facility] Last Admin: 07/13/19 10:01 Dose: 80 mg Documented by: Ondansetron HCl (Zofran) 4 mg IV Q4HP PRN PRN Reason: Nausea And Vomiting Polyethylene Glycol (Miralax) 17 gm PO DAILYP PRN PRN Reason: Constipation Last Admin: 07/13/19 09:53 Dose: 17 gm Documented by: Fluticasone/Salmeterol (Advair 250-50 Diskus) 1 puff INH BID [facility] Last Admin: 07/13/19 10:01 Dose: 1 puff Documented by: Senna (Senokot) 2 tab PO DAILYP PRN PRN Reason: Constipation Last Admin: 07/13/19 09:54 Dose: 2 tab Documented by: Sodium Chloride (Saline Flush) 10 ml IV Q8 [facility] Last Admin: 07/13/19 13:08 Dose: 10 ml Documented by: Tizanidine HCl (Zanaflex) 4 mg PO TIDP PRN PRN Reason: MUSCLE SPASMS Venlafaxine HCl (Effexor Xr) 150 mg PO DAILY [facility] Last Admin: 07/13/19 09:54 Dose: 150 mg Documented by: Medical - PN: A/P - Time Spent With Patient Total time spent is greater than 50% in coordination of care (as documented) at patient's floor/unit and/or counseling patient: - Narrative A/P Narrative: Assessment: 1. Acute hypoxic respiratory failure with chronic CO2 retention compensated: 2/2 PNA/Copd -on bipap in ED, now on 4-6L NC, high flow PRN. SpO2 > = 90% 2. PNA (Haemophilus influenza): -leukocytosis resolved -resp viral panel neg -sputum culture - positive for ampicillin resistant Haemophilus influenzae 3. AECOPD (3L o2@home): Follows with Dr. Bray 4. Chronic metabolic alkalosis: 2/2 above 5. h/o chemical lung injury from cleaning products in the 's with Pulmonary Fibrosis: 6. h/o systolic CHF(30% EF march): Follows with [facility] cardiology 7. Anxiety: 8. HTN: 9. Tobacco abuse: 10. Obesity: 11. chr pain: P: 1. 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 Continue home BB, continue home Lasix 3. held ACEI for hyperkalemia 4. Continue home anxiety medication 5. PT/OT 6. Smoking cessation counseling 7. f/u with pulomology outpt and sleep study 8. ppx: Lovenox full code Deposition: Home Medical - PN: Qual - Stroke Symptom Onset Unknown: No - VTE Deep Vein Thrombosis/Pulmonary Embolism Present on Admission: No
[2019-07-13] MEDS ORDERED: METOPROLOL TARTRATE 5 MG/5 ML VIAL IV ONE ×3 (17:22→17:57)
[2019-07-13] MEDS: METOPROLOL TARTRATE 5 MG/5 ML VIAL IV SCH ×3 (17:25→18:41)
[2019-07-13] MEDS: DILTIAZEM 125 MG in DEXTROSE 5% IN WATER 100 ML IV SCH (19:54)
[2019-07-13] MEDS: MONTELUKAST 10 MG TABLET PO SCH (22:19)
[2019-07-13 23:15] LABS: Thyroid Stimulating Hormone 0.69 uIU/ml (0.27-5.01)
[2019-07-14] MEDS: IPRATROPIUM/ALBUTEROL 3 ML AMPUL.NEB NEB SCH ×4 (01:01→18:41)
[2019-07-14] MEDS: methylPREDNISolone SOD SUCC 40 MG/ML VIAL IV SCH (05:22)
[2019-07-14] MEDS: 0.9 % SODIUM CHLORIDE 10 ML SYRINGE IV SCH ×3 (05:22→21:37)
[2019-07-14 07:39] LABS: Basophils # (Auto) 0.03 K/mcL (0.00-0.30); Basophils % (Auto) 0.3 % (0.0-2.0); Eosinophils # (Auto) 0.02 K/mcL (0.00-0.70); Eosinophils % (Auto) 0.2 % (0.0-7.0); Granulocytes % (Auto) 70.2 % (38.0-78.0); Hematocrit 52.4 % (34.1-44.9); Hemoglobin 16.4 g/dL (11.2-15.7); Lymphocytes # (Auto) 2.19 K/mcL (1.50-4.80); Lymphocytes % (Auto) 23.5 % (15.5-49.0); Mean Cell Volume 86.2 fL (80.0-100.0); Mean Corpuscular HGB Conc 31.3 g/dL (31.0-36.0); Mean Platelet Volume 11.9 fL (7.4-10.4); Monocytes # (Auto) 0.54 K/mcL (0.10-0.90); Monocytes % (Auto) 5.8 % (1.0-12.0); Platelet Count 305 K/mcL (140-440); RBC 6.08 M/mcL (3.59-5.38); Red Cell Distribution Width 17.7 % (11.5-14.5); WBC 9.3 K/mcL (4.50-11.00)
[2019-07-14] MEDS: FLUTICASONE/SALMETEROL 250/50 INHALER #14 INH SCH ×2 (09:20→21:36)
[2019-07-14] MEDS: DOCUSATE SODIUM 100 MG CAPSULE PO SCH ×2 (09:20→21:37)
[2019-07-14] MEDS: VENLAFAXINE 150 MG CAP.XL.24H PO SCH (09:20)
[2019-07-14] MEDS: ASPIRIN 81 MG TAB.CHEW PO SCH (09:20)
[2019-07-14] MEDS: morphine 30 MG TAB.SR.12H PO SCH ×3 (09:21→21:37)
[2019-07-14] MEDS: Febuxostat [Uloric] 80 MG PO SCH (09:21)
[2019-07-14] MEDS: FUROSEMIDE 40 MG TABLET PO SCH ×2 (09:21→21:38)
[2019-07-14] MEDS: METOPROLOL TARTRATE 25 MG TABLET PO SCH ×3 (09:22→21:39)
[2019-07-14] MEDS: ENOXAPARIN 40 MG/0.4 ML SYRINGE SQ SCH (09:22)
[2019-07-14] MEDS: cefTRIAXone 2 GM in DEXTROSE 5% IN WATER 50 ML IV SCH (09:22)
[2019-07-14] MEDS: DILTIAZEM 30 MG TABLET PO SCH ×2 (10:17→17:05)
[2019-07-14 11:10] LABS: ALT/SGPT 21 U/l (0-40); AST/SGOT 18 U/l (0-37); Albumin 3.2 gm/dL (3.2-5.2); Albumin/Globulin Ratio 0.9 (1.0-2.3); Alkaline Phosphatase 74 U/L (39-117); Bilirubin,Total 0.3 mg/dL (0.0-1.0); Blood Urea Nitrogen 14 mg/dl (6-20); Calcium 9.1 mg/dl (8.6-10.4); Carbon Dioxide 33 mmol/L (22-30); Globulin 3.7 gm/dL (2.2-3.7); Glomerular Filtration Rate 101; Glucose 226 mg/dL (70-105)
[2019-07-14 11:23] LABS: Chloride 92 mmol/L (96-108)
[2019-07-14] MEDS: DILTIAZEM 125 MG in DEXTROSE 5% IN WATER 100 ML IV SCH ×2 (14:33→17:55)
--- NOTE | 2019-07-14 18:04 | Internal Med Progress Note ---
Medical - PN: Subj Patient information: Note initiated : 07/14/19 at 5:59 pm Service Date, if different from initiated Date: [] Patient: Grace Canales a 59 y/o F admitted on 07/08/19 for Shortness of Breath. Chief Complaint: [] Interval history: Ms. Canales is a 59 year old F Presents the ED with increasing shortness of breath and cough different from baseline over the past couple days. 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 She follows with Dr. Bray. She is been admitted in March and April last year for COPD exacerbation. She had a chest x-ray and CT which showed lymphadenopathy and widespread bilater al infiltrates. Subsequent PET CT done by Dr. Bray which showed some pulmonary fibrosis and improved lymphadenopathy. She wears 3 L of oxygen day and night but over the past week is been wearing 5 L. She denies fevers or chills. She has chronic cough but she says is more productive lately, yellow-green sputum. She always feels wheezy. She arrived in the ED she had sats in the mid 80s on 5 L and she appeared to be in respiratory distress with an ABG noted to have elevated CO2 although her pH was compensated. She is placed on a BiPAP. She received breathing treatment as well as steroids. She feels comfortable on the BiPAP and much improved. She quit smoking about a month ago and then started smoking a little bit lately but not very much, maybe half a pack in a week. She also noted to have leukocytosis. Chest x-ray reported as white but infiltrate. Be worse from April imaging. She has a mild leukocytosis at 14 and an elevated CRP of 25. Denies chest pain. 3/4 Did not tolerate nasal cannula this morning was put back on BiPAP. Recently changed to CPAP setting primarily hypoxic issue. Patient does feel better and feels breathing is better. Her cough is more productive of clear sputum and breaking up and feels better to her. No shortness of breath in bed on the mask at this time. Leukocytosis improved. Respiratory viral panel negative. 3/5 Feeling better today. Able to take deeper breaths. Improved shortness of breath. Cough feels to be improving per her and is productive of white sputum. No other pains or complaints. Still on CPAP. By pulmonology last night. 07/10 Productive cough. She has chronic shortness of breath so she states is hard to tell if she is improved or not. However she is now on 15 L high flow good saturations which is changed from requiring CPAP and not tolerating high flow yesterday. Decreased leg swelling today. Was given some extra IV Lasix yesterday. 07/11 Does not have any new complaints. But still complains of cough and shortness of breath. No overnight events 07/12 Pt still has some sob. SpO2 > = 90% on 4-6L this afternoon. 07/13 Pt does not have new complaints. On 5L now, with saturation of 91% Her HR is not stable. Diltiazem drip was discontinued in this morning restarted this afternoon. Review of Systems: denies headache/fever/chills/nausea/vomiting/chest or abdominal pain/diarrhea. Otherwise see above. - Constitutional Vitals: Vital Signs Temp Pulse Resp BP Pulse Ox 97.4 F 104 H 16 133/96 91 07/14/19 12:00 07/14/19 13:27 07/14/19 13:27 07/14/19 13:00 07/14/19 14:00 Period Temp Pulse Resp BP Sys/Riggins Pulse Ox Last 24 Hr 97.0 F-97.4 F 77-114 10-42 50-147/16-111 88-97 Intake and Output 07/14/19 07/14/19 07/14/19 05:59 13:59 21:59 Intake Total 977 825 247 Output Total 1450 1000 600 Balance -473 -175 -353 Weight 109.815 kg Patient Weight 07/15/19 05:59 Weight 109.815 kg Intake & Output: Intake & Output 07/14/19 07/14/19 07/14/19 05:59 13:59 21:59 Intake Total 977 825 247 Output Total 1450 1000 600 Balance -473 -175 -353 Weight 109.815 kg Intake: IV 27 105 7 Cardizem 125 mg In Dextrose 5% 27 83 7 in Water 100 ml @ 5 MG/HR 5 mls /hr IV Q12H [facility] Rx#:[id number] Rocephin 2 gm In Dextrose 5% in 22 Water 50 ml @ 100 mls/hr IV Q24H [facility] Rx#:[id number] Oral 950 720 240 Output: Void Amount 1450 1000 600 Other: Meal Lunch Percent of Meal Consumed 100% Urine Appearance Clear Clear Urine Color Dark Yellow Dark Yellow - Additional findings Additional findings: General: Alert, Awake, No acute Distress, obese Eyes/N/T: EOMI, Head/Neck: neck supple, CV: irregular irregular, No murmurs, Pulm: silent lung but mild rhonchi b/l with expiration, prolonged expiratory phase, Abd: soft, nontender, +BS x4 Ext: no clubbing/cyanosis, 1+ b/l LE edema chronic Neuro: Alert, no focal deficits, moves all extremities, Skin: warm/dry Psych: normal mood Medical - PN: Obj Da - Labs CBC & Chem 7: 07/14/19 06:39 07/14/19 10:17 Labs: Abnormal Lab Results 07/14/19 07/14/19 07/13/19 10:17 06:39 06:20 RBC 6.08 H 6.50 H Hgb 16.4 H 17.9 H Hct 52.4 H 56.3 H RDW 17.7 H 17.2 H MPV 11.9 H 10.6 H Lymph # (Auto) Chloride 92 L Carbon Dioxide 33 H Creatinine Glucose 226 H GGT Albumin Globulin Albumin/Globulin Ratio 0.9 L 07/13/19 07/12/19 07/12/19 06:20 10:40 05:00 RBC 5.80 H Hgb 16.2 H Hct 50.6 H RDW 16.1 H MPV 11.2 H Lymph # (Auto) 1.41 L Chloride 93 L Carbon Dioxide 38 H 36 H Creatinine 0.5 L Glucose 113 H GGT 55 H Albumin 3.1 L Globulin 3.9 H 4.0 H Albumin/Globulin Ratio 0.9 L 0.8 L Meds: Medications Acetaminophen (Tylenol) 650 mg PO Q6HP PRN PRN Reason: PAIN/FEVER > 101 Hydrocodone Bitart/Acetaminophen ([place] 10/325mg) 1 tab PO Q12HP PRN; Protocol PRN Reason: Pain Albuterol Sulfate (Ventolin) 2 puff INH Q4HP PRN PRN Reason: Shortness Of Breath Albuterol/Ipratropium (Duoneb) 3 ml NEB Q4HP PRN PRN Reason: Shortness Of Breath Albuterol/Ipratropium (Duoneb) 3 ml NEB Q6HRT [facility] Last Admin: 07/14/19 13:18 Dose: 3 ml Documented by: Aspirin (Aspirin) 81 mg PO DAILY [facility] Last Admin: 07/14/19 09:20 Dose: 81 mg Documented by: Diltiazem HCl (Cardizem) 30 mg PO Q12 [facility] Last Admin: 07/14/19 17:05 Dose: 30 mg Documented by: Docusate Sodium (Colace) 100 mg PO BID [facility] Last Admin: 07/14/19 09:20 Dose: 100 mg Documented by: Enoxaparin Sodium (Lovenox) 40 mg SQ DAILY [facility] Last Admin: 07/14/19 09:22 Dose: 40 mg Documented by: Furosemide (Lasix) 20 mg PO BID [facility] Last Admin: 07/14/19 09:21 Dose: 20 mg Documented by: Ceftriaxone Sodium 2 gm/ (Dextrose) 50 mls @ 100 mls/hr IV Q24H [facility]; Protocol Last Infusion: 07/14/19 09:35 Dose: 0 mls/hr Documented by: Magnesium Sulfate (Magnesium Sulfate) 2 gm in 50 mls @ 50 mls/hr IV UD PRN PRN Reason: Magnesium </= 1.6 Diltiazem HCl 125 mg/ Dextrose 125 mls @ 5 mls/hr IV Q12H [facility]; Protocol Last Admin: 07/14/19 17:55 Dose: 5 mg/hr, 5 mls/hr Documented by: Lactulose (Cephulac) 20 gm PO DAILYP PRN PRN Reason: Constipation Last Admin: 07/13/19 09:53 Dose: 20 gm Documented by: Lorazepam (Ativan) 2 mg PO BIDP PRN PRN Reason: Anxiety Metoprolol Tartrate (Lopressor) 25 mg PO BID [facility] Last Admin: 07/14/19 17:05 Dose: 25 mg Documented by: Montelukast Sodium (Singular) 10 mg PO HS [facility] Last Admin: 07/13/19 22:19 Dose: 10 mg Documented by: Morphine Sulfate (Ms Contin) 60 mg PO TID [facility] Last Admin: 07/14/19 14:34 Dose: 60 mg Documented by: Febuxostat [Uloric] (80 Mg) 80 mg PO QDAY [facility] Last Admin: 03/09/20 09:21 Dose: 80 mg Documented by: Ondansetron HCl (Zofran) 4 mg IV Q4HP PRN PRN Reason: Nausea And Vomiting Polyethylene Glycol (Miralax) 17 gm PO DAILYP PRN PRN Reason: Constipation Last Admin: 07/13/19 09:53 Dose: 17 gm Documented by: Prednisone (Prednisone) 30 mg PO [facility] Fluticasone/Salmeterol (Advair 250-50 Diskus) 1 puff INH BID [facility] Last Admin: 07/14/19 09:20 Dose: 1 puff Documented by: Senna (Senokot) 2 tab PO DAILYP PRN PRN Reason: Constipation Last Admin: 07/13/19 09:54 Dose: 2 tab Documented by: Sodium Chloride (Saline Flush) 10 ml IV Q8 [facility] Last Admin: 07/14/19 17:04 Dose: 10 ml Documented by: Tizanidine HCl (Zanaflex) 4 mg PO TIDP PRN PRN Reason: MUSCLE SPASMS Venlafaxine HCl (Effexor Xr) 150 mg PO DAILY [facility] Last Admin: 07/14/19 09:20 Dose: 150 mg Documented by: Medical - PN: A/P - Time Spent With Patient Total time spent is greater than 50% in coordination of care (as documented) at patient's floor/unit and/or counseling patient: - Narrative A/P Narrative: Assessment: 1. Acute hypoxic respiratory failure with chronic CO2 retention compensated: 2/2 PNA/Copd -On home oxygen 3L, now on 4-6L NC 2. PNA (Haemophilus influenza): -leukocytosis resolved -resp viral panel neg -sputum culture - positive for ampicillin resistant Haemophilus influenzae 3. AECOPD (3L o2@home): Follows with Dr. Bray 4. Chronic metabolic alkalosis: 2/2 above 5. 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 h/o systolic CHF(30% EF March): Follows with [facility] cardiology 7. Anxiety: 8. HTN: 9. Tobacco abuse: 10. Obesity: 11. chr pain: P: 1. trying to wean O2 as able 2. Continue Rocephin 3. Discontinued solumedrol today and started prednisone 30mg daily today. inhalers, singular IS/acapella seen by academic guidance specialist 4. Continue home BB, continue home Lasix 5. held ACEI for hyperkalemia 6. Continue home anxiety medication 7. PT/OT 8. Smoking cessation counseled 9. f/u with pulomology outpt and sleep study 10. Denies hx of atrial fibrillation. She is now on diltiazem drip, po diltiazem and metoprolol. Discussed anticoagulation with pt in length. She would like to f/u with pcp and cardiology for the issue. 11. ppx: Lovenox full code Deposition: Home Medical - PN: Qual - Stroke Symptom Onset Unknown: No - VTE Deep Vein Thrombosis/Pulmonary Embolism Present on Admission: No
[2019-07-14] MEDS ORDERED: DILTIAZEM 120 MG CAP.XL.24H PO SCH (21:00)
[2019-07-14] MEDS ORDERED: NYSTATIN 500,000 UNITS/5 ML ORAL.SUSP SSP SCH (21:00)
[2019-07-14] MEDS: MONTELUKAST 10 MG TABLET PO SCH (21:37)
[2019-07-14] MEDS: SENNOSIDES 1 TABLET PO PRN (21:38)
[2019-07-15] MEDS: IPRATROPIUM/ALBUTEROL 3 ML AMPUL.NEB NEB SCH ×4 (01:00→19:29)
[2019-07-15 06:00] LABS: Basophils # (Auto) 0.06 K/mcL (0.00-0.30); Basophils % (Auto) 0.8 % (0.0-2.0); Eosinophils # (Auto) 0.21 K/mcL (0.00-0.70); Eosinophils % (Auto) 2.7 % (0.0-7.0); Granulocytes % (Auto) 45.5 % (38.0-78.0); Hematocrit 51.6 % (34.1-44.9); Hemoglobin 16.7 g/dL (11.2-15.7); Lymphocytes # (Auto) 3.16 K/mcL (1.50-4.80); Lymphocytes % (Auto) 40.2 % (15.5-49.0); Mean Cell Volume 86.3 fL (80.0-100.0); Mean Corpuscular HGB Conc 32.4 g/dL (31.0-36.0); Mean Platelet Volume 11.3 fL (7.4-10.4); Monocytes # (Auto) 0.85 K/mcL (0.10-0.90); Monocytes % (Auto) 10.8 % (1.0-12.0); Platelet Count 271 K/mcL (140-440); RBC 5.98 M/mcL (3.59-5.38); Red Cell Distribution Width 16.5 % (11.5-14.5); WBC 7.9 K/mcL (4.50-11.00)
[2019-07-15] MEDS: 0.9 % SODIUM CHLORIDE 10 ML SYRINGE IV SCH ×3 (06:08→21:11)
[2019-07-15 06:29] LABS: ALT/SGPT 22 U/l (0-40); AST/SGOT 21 U/l (0-37); Albumin 3.1 gm/dL (3.2-5.2); Albumin/Globulin Ratio 0.9 (1.0-2.3); Alkaline Phosphatase 69 U/L (39-117); Bilirubin,Total 0.3 mg/dL (0.0-1.0); Blood Urea Nitrogen 16 mg/dl (6-20); Calcium 8.7 mg/dl (8.6-10.4); Carbon Dioxide 34 mmol/L (22-30); Chloride 97 mmol/L (96-108); Globulin 3.6 gm/dL (2.2-3.7); Glomerular Filtration Rate 107; Glucose 112 mg/dL (70-105)
[2019-07-15] MEDS: DILTIAZEM 125 MG in DEXTROSE 5% IN WATER 100 ML IV SCH ×2 (06:59→18:29)
[2019-07-15] MEDS: Febuxostat [Uloric] 80 MG PO SCH (08:30)
[2019-07-15] MEDS: ENOXAPARIN 40 MG/0.4 ML SYRINGE SQ SCH (08:30)
[2019-07-15] MEDS: FUROSEMIDE 40 MG TABLET PO SCH ×2 (08:30→21:11)
[2019-07-15] MEDS: predniSONE 10 MG TABLET PO SCH (08:30)
[2019-07-15] MEDS: VENLAFAXINE 150 MG CAP.XL.24H PO SCH (08:31)
[2019-07-15] MEDS: morphine 30 MG TAB.SR.12H PO SCH ×3 (08:31→21:10)
[2019-07-15] MEDS: cefTRIAXone 2 GM in DEXTROSE 5% IN WATER 50 ML IV SCH (08:31)
[2019-07-15] MEDS: FLUTICASONE/SALMETEROL 250/50 INHALER #14 INH SCH ×2 (08:31→21:09)
[2019-07-15] MEDS: DOCUSATE SODIUM 100 MG CAPSULE PO SCH ×2 (08:31→21:10)
[2019-07-15] MEDS: ASPIRIN 81 MG TAB.CHEW PO SCH (08:31)
[2019-07-15] MEDS: METOPROLOL TARTRATE 25 MG TABLET PO SCH (08:32)
[2019-07-15] MEDS ORDERED: DILTIAZEM 30 MG TABLET PO ONE (09:20)
[2019-07-15] MEDS: METOPROLOL TARTRATE 5 MG/5 ML VIAL IV PRN ×3 (15:02→21:14)
[2019-07-15] MEDS: LORazepam 1 MG TABLET PO PRN (15:11)
[2019-07-15] MEDS ORDERED: DILTIAZEM 30 MG TABLET PO SCH (17:00)
--- NOTE | 2019-07-15 19:33 | Internal Med Progress Note ---
Medical - PN: Subj Patient information: Note initiated : 07/15/19 at 7:28 pm Service Date, if different from initiated Date: [] Patient: Grace Canales a 59 y/o F admitted on 07/08/19 for Shortness of Breath. Chief Complaint: [] Interval history: Ms. Canales is a 59 year old F Presents the ED with increasing shortness of breath and cough different from baseline over the past couple days. 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 She follows with Dr. Bray. She is been admitted in March and April last year for COPD exacerbation. She had a chest x-ray and CT which showed lymphadenopathy and widespread bilateral infiltrates. Subsequent PET CT done by Dr. Bray which showed some pulmonary fibrosis and improved lymphadenopathy. She wears 3 L of oxygen day and night but over the past week is been wearing 5 L . She denies fevers or chills. She has chronic cough but she says is more productive lately, yellow-green sputum. She always feels wheezy. She arrived in the ED she had sats in the mid 80s on 5 L and she appeared to be in respiratory distress with an ABG noted to have elevated CO2 although her pH was compensated. She is placed on a BiPAP. She received breathing treatment as well as steroids. She feels comfortable on the BiPAP and much improved. She quit smoking about a month ago and then started smoking a little bit lately but not very much, maybe half a pack in a week. She also noted to have leukocytosis. Chest x-ray reported as white but infiltrate. Be worse from April imaging. She has a mild leukocytosis at 14 and an elevated CRP of 25. Denies chest pain. 3/4 Did not tolerate nasal cannula this morning was put back on BiPAP. Recently changed to CPAP setting primarily hypoxic issue. Patient does feel better and feels breathing is better. Her cough is more productive of clear sputum and breaking up and feels better to her. No shortness of breath in bed on the mask at this time. Leukocytosis improved. Respiratory viral panel negative. 3/5 Feeling better today. Able to take deeper breaths. Improved shortness of breath. Cough feels to be improving per her and is productive of white sputum. No other pains or complaints. Still on CPAP. By pulmonology last night. 3/6 Productive cough. She has chronic shortness of breath so she states is hard to tell if she is improved or not. However she is now on 15 L high flow good saturations which is changed from requiring CPAP and not tolerating high flow yesterday. Decreased leg swelling today. Was given some extra IV Lasix yesterday. 07/11 Does not have any new complaints. But still complains of cough and shortness of breath. No overnight events 07/12 Pt still has some sob. SpO2 > = 90% on 4-6L this afternoon. 07/13 Pt does not have new complaints. On 5L now, with saturation of 91% Her HR is not stable. Diltiazem drip was discontinued in this morning restarted this afternoon. 07/14 When I saw Ms Canales early this morning she was doing very well. HR controlled and she was on 3L, which is her baseline at home. She was told to be discharged today. But later this morning her HR went up to 150. Discharge was canceled. Meds for HR was adjusted. Review of Systems: denies headache/fever/chills/nausea/vomiting/chest or abdominal pain/diarrhea. Otherwise see above. - Constitutional Vitals: Vital Signs Temp Pulse Resp BP Pulse Ox 97.4 F 106 H 14 110/80 93 07/15/19 16:01 07/15/19 13:38 07/15/19 13:38 07/15/19 16:01 07/15/19 16:37 Period Temp Pulse Resp BP Sys/Riggins Pulse Ox Last 24 Hr 97.3 F-97.7 F 90-106 14-22 91-130/61-110 84-94 Intake and Output 07/15/19 07/15/19 07/15/19 05:59 13:59 21:59 Intake Total 300 50 480 Output Total 850 1600 Balance -550 -1550 480 Intake & Output: Intake & Output 07/15/19 07/15/19 07/15/19 05:59 13:59 21:59 Intake Total 300 50 480 Output Total 850 1600 Balance -550 -1550 480 Intake: IV 50 50 Cardizem 125 mg In Dextrose 5% 50 in Water 100 ml @ 5 MG/HR 5 mls /hr IV Q12H [facility] Rx#:[id number] Rocephin 2 gm In Dextrose 5% in 50 Water 50 ml @ 100 mls/hr IV Q24H [facility] Rx#:[id number] Oral 250 480 Output: Void Amount 850 1600 Other: Meal Lunch Dinner Percent of Meal Consumed 100% 100% Feeding Ability Independent Urine Appearance Clear Urine Color Bright Yellow Stool Size Moderate Moderate Stool Color Brown Brown Stool Consistency Formed Formed # Voids 1 # Bowel Movements 1 - Additional findings Additional findings: General: Alert, Awake, No acute Distress, obese Eyes/N/T: EOMI, Head/Neck: neck supple, CV: irregular irregular, No murmurs, Pulm: silent lung but mild rhonchi b/l with expiration, prolonged expiratory ph ase, Abd: soft, nontender, +BS x4 Ext: no clubbing/cyanosis, 1+ b/l LE edema chronic Neuro: Alert, no focal deficits, moves all extremities, Skin: warm/dry Psych: normal mood Medical - PN: Obj Da - Labs CBC & Chem 7: 07/15/19 04:59 07/15/19 04:59 Labs: Abnormal Lab Results 07/15/19 07/15/19 07/14/19 04:59 04:59 10:17 RBC 5.98 H Hgb 16.7 H Hct 51.6 H RDW 16.5 H MPV 11.3 H Chloride 92 L Carbon Dioxide 34 H 33 H Creatinine 0.5 L Glucose 112 H 226 H Albumin 3.1 L Globulin Albumin/Globulin Ratio 0.9 L 0.9 L 07/14/19 07/13/19 07/13/19 06:39 06:20 06:20 RBC 6.08 H 6.50 H Hgb 16.4 H 17.9 H Hct 52.4 H 56.3 H RDW 17.7 H 17.2 H MPV 11.9 H 10.6 H Chloride 93 L Carbon Dioxide 38 H Creatinine 0.5 L Glucose Albumin Globulin 3.9 H Albumin/Globulin Ratio 0.9 L Meds: Medications Acetaminophen (Tylenol) 650 mg PO Q6HP PRN PRN Reason: PAIN/FEVER > 101 Hydrocodone Bitart/Acetaminophen ([place] 10/325mg) 1 tab PO Q12HP PRN; Protocol PRN Reason: Pain Albuterol Sulfate (Ventolin) 2 puff INH Q4HP PRN PRN Reason: Shortness Of Breath Albuterol/Ipratropium (Duoneb) 3 ml NEB Q4HP PRN PRN Reason: Shortness Of Breath Albuterol/Ipratropium (Duoneb) 3 ml NEB Q6HRT [facility] Last Admin: 07/15/19 13:23 Dose: 3 ml Documented by: Aspirin (Aspirin) 81 mg PO DAILY [facility] Last Admin: 07/15/19 08:31 Dose: 81 mg Documented by: Diltiazem HCl (Cardizem) 60 mg PO QID [facility] Last Admin: 07/15/19 16:54 Dose: 60 mg Documented by: Docusate Sodium (Colace) 100 mg PO BID [facility] Last Admin: 07/15/19 08:31 Dose: 100 mg Documented by: Enoxaparin Sodium (Lovenox) 40 mg SQ DAILY [facility] Last Admin: 07/15/19 08:30 Dose: 40 mg Documented by: Furosemide (Lasix) 20 mg PO BID [facility] Last Admin: 07/15/19 08:30 Dose: 20 mg Documented by: Ceftriaxone Sodium 2 gm/ (Dextrose) 50 mls @ 100 mls/hr IV Q24H [facility]; Protocol Last Infusion: 07/15/19 09:01 Dose: Infused Documented by: Magnesium Sulfate (Magnesium Sulfate) 2 gm in 50 mls @ 50 mls/hr IV UD PRN PRN Reason: Magnesium </= 1.6 Diltiazem HCl 125 mg/ Dextrose 125 mls @ 5 mls/hr IV Q12H [facility]; Protocol Last Admin: 07/15/19 18:29 Dose: Not Given Documented by: Lactulose (Cephulac) 20 gm PO DAILYP PRN PRN Reason: Constipation Last Admin: 07/13/19 09:53 Dose: 20 gm Documented by: Lorazepam (Ativan) 2 mg PO BIDP PRN PRN Reason: Anxiety Last Admin: 07/15/19 15:11 Dose: 2 mg Documented by: Metoprolol Tartrate (Lopressor) 25 mg PO BID [facility] Last Admin: 07/15/19 08:32 Dose: 25 mg Documented by: Metoprolol Tartrate (Lopressor) 5 mg IV Q2HP PRN PRN Reason: Tachyarrhythmias HR>110 Last Admin: 07/15/19 18:25 Dose: 5 mg Documented by: Montelukast Sodium (Singular) 10 mg PO HS [facility] Last Admin: 07/14/19 21:37 Dose: 10 mg Documented by: Morphine Sulfate (Ms Contin) 60 mg PO TID [facility] Last Admin: 07/15/19 15:11 Dose: 60 mg Documented by: Febuxostat [Uloric] (80 Mg) 80 mg PO QDAY [facility] Last Admin: 07/15/19 08:30 Dose: 80 mg Documented by: Ondansetron HCl (Zofran) 4 mg IV Q4HP PRN PRN Reason: Nausea And Vomiting Polyethylene Glycol (Miralax) 17 gm PO DAILYP PRN PRN Reason: Constipation Last Admin: 07/13/19 09:53 Dose: 17 gm Documented by: [facility] ([facility]) [facility] Last Admin: 07/15/19 08:30 Dose: 30 mg Documented by: Fluticasone/Salmeterol (Advair 250-50 Diskus) 1 puff INH BID [facility] Last Admin: 07/15/19 08:31 Dose: 1 puff Documented by: Senna (Senokot) 2 tab PO DAILYP PRN PRN Reason: Constipation Last Admin: 07/14/19 21:38 Dose: 2 tab Documented by: Sodium Chloride (Saline Flush) 10 ml IV Q8 [facility] Last Admin: 07/15/19 15:03 Dose: 10 ml Documented by: Tizanidine HCl (Zanaflex) 4 mg PO TIDP PRN PRN Reason: MUSCLE SPASMS Venlafaxine HCl (Effexor Xr) 150 mg PO DAILY [facility] Last Admin: 07/15/19 08:31 Dose: 150 mg Documented by: Medical - PN: A/P - Time Spent With Patient Total time spent is greater than 50% in coordination of care (as documented) at patient's floor/unit and/or counseling patient: - Narrative A/P Narrative: Assessment: 1. Acute hypoxic respiratory failure with chronic CO2 retention compensated: 2/2 PNA/Copd -On home oxygen 3L, now on 4-6L NC 2. PNA (Haemophilus influenza): -leukocytosis resolved -resp viral panel neg -sputum culture - positive for ampicillin resistant Haemophilus influenzae 3. AECOPD (3L o2@home): Follows with Dr. Bray 4. Chronic metabolic alkalosis: 2/2 above 5. 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 h/o systolic CHF(30% EF March echo): Follows with [facility] cardiology 7. Anxiety: 8. HTN: 9. Tobacco abuse: 10. Obesity: 11. chr pain 12. Atrial fibrillation with RVR P: 1. Respiratory failure improved. on 3L. She is on home oxygen 3L 2. Continue Rocephin 3. Discontinued solumedrol today and started prednisone 30mg daily today. inhalers, singular IS/acapella seen by paralegal internship 4. continue home Lasix 5. held ACEI for hyperkalemia 6. Continue home anxiety medication 7. PT/OT 8. Smoking cessation counseled 9. f/u with pulomology outpt and sleep study 10. Denies hx of atrial fibrillation. troponin neg x 3 HR was controlled but later this morning her HR went up to 150 again. metoprolol 25mg bid, and put her back on diltiazem drip. Discussed anticoagu lation with pt in length. She would like to f/u with pcp and cardiology for the issue. 11. ppx: Lovenox full code Deposition: Home Medical - PN: Qual - Stroke Symptom Onset Unknown: No - VTE Deep Vein Thrombosis/Pulmonary Embolism Present on Admission: No
--- NOTE | 2019-07-15 20:01 | Internal Med Progress Note ---
Medical - PN: Subj Patient information: Note initiated : 07/15/19 at 7:52 pm Service Date, if different from initiated Date: [] Patient: Grace Canales a 59 y/o F admitted on 07/08/19 for Shortness of Breath. Chief Complaint: [] Interval history: Ms. Canales is a 59 year old F Presents the ED with increasing shortness of breath and cough different from baseline over the past couple days. 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 She follows with Dr. Bray. She is been admitted in March and April last year for COPD exacerbation. She had a chest x-ray and CT which showed lymphadenopathy and widespread bilateral infiltrates. Subsequent PET CT done by Dr. Bray which showed some pulmonary fibrosis and improved lymphadenopathy. She wears 3 L of oxygen day and night but over the past week is been wearing 5 L . She denies fevers or chills. She has chronic cough but she says is more productive lately, yellow-green sputum. She always feels wheezy. She arrived in the ED she had sats in the mid 80s on 5 L and she appeared to be in respiratory distress with an ABG noted to have elevated CO2 although her pH was compensated. She is placed on a BiPAP. She received breathing treatment as well as steroids. She feels comfortable on the BiPAP and much improved. She quit smoking about a month ago and then started smoking a little bit lately but not very much, maybe half a pack in a week. She also noted to have leukocytosis. Chest x-ray reported as white but infiltrate. Be worse from April imaging. She has a mild leukocytosis at 14 and an elevated CRP of 25. Denies chest pain. 3/4 Did not tolerate nasal cannula this morning was put back on BiPAP. Recently changed to CPAP setting primarily hypoxic issue. Patient does feel better and feels breathing is better. Her cough is more productive of clear sputum and breaking up and feels better to her. No shortness of breath in bed on the mask at this time. Leukocytosis improved. Respiratory viral panel negative. 3/5 Feeling better today. Able to take deeper breaths. Improved shortness of breath. Cough feels to be improving per her and is productive of white sputum. No other pains or complaints. Still on CPAP. By pulmonology last night. 3/6 Productive cough. She has chronic shortness of breath so she states is hard to tell if she is improved or not. However she is now on 15 L high flow good saturations which is changed from requiring CPAP and not tolerating high flow yesterday. Decreased leg swelling today. Was given some extra IV Lasix yesterday. 07/11 Does not have any new complaints. But still complains of cough and shortness of breath. No overnight events 07/12 Pt still has some sob. SpO2 > = 90% on 4-6L this afternoon. 07/13 Pt does not have new complaints. On 5L now, with saturation of 91% Her HR is not stable. Diltiazem drip was discontinued in this morning restarted this afternoon. 07/14 When I saw Ms Canales early this morning she was doing very well. HR controlled and she was on 3L, which is her baseline at home. She was told to be discharged today. But later this morning her HR went up to 150. Discharge was canceled. Meds for HR was adjusted. - Constitutional Vitals: Vital Signs Temp Pulse Resp BP Pulse Ox 97.4 F 106 H 14 110/80 93 07/15/19 16:01 07/15/19 13:38 07/15/19 13:38 07/15/19 16:01 07/15/19 16:37 Period Temp Pulse Resp BP Sys/Riggins Pulse Ox Last 24 Hr 97.3 F-97.7 F 90-106 14-22 91-130/61-110 84-94 Intake and Output 07/15/19 07/15/19 07/15/19 05:59 13:59 21:59 Intake Total 300 50 480 Output Total 850 1600 Balance -550 -1550 480 Intake & Output: Intake & Output 07/15/19 07/15/19 07/15/19 05:59 13:59 21:59 Intake Total 300 50 480 Output Total 850 1600 Balance -550 -1550 480 Intake: IV 50 50 Cardizem 125 mg In Dextrose 5% 50 in Water 100 ml @ 5 MG/HR 5 mls /hr IV Q12H [facility] Rx#:[id number] Rocephin 2 gm In Dextrose 5% in 50 Water 50 ml @ 100 mls/hr IV Q24H [facility] Rx#:[id number] Oral 250 480 Output: Void Amount 850 1600 Other: Meal Lunch Dinner Percent of Meal Consumed 100% 100% Feeding Ability Independent Urine Appearance Clear Urine Color Bright Yellow Stool Size Moderate Moderate Stool Color Brown Brown Stool Consistency Formed Formed # Voids 1 # Bowel Movements 1 Exam: General: Alert, Awake, No acute Distress, obese Eyes/N/T: EOMI, Head/Neck: neck supple, CV: RRR, No murmurs, Pulm: mild b/l wheezing improving, mild rhonchi b/l, prolonged expiratory phase, Abd: soft, nontender, +BS x4 Ext: no clubbing/cyanosis, 1+ b/l LE edema chronic Neuro: Alert, no focal deficits, moves all extremities, Skin: warm/dry Medical - PN: Obj Da - Labs CBC & Chem 7: 07/15/19 04:59 07/15/19 04:59 Labs: Abnormal Lab Results 07/15/19 07/15/19 07/14/19 04:59 04:59 10:17 RBC 5.98 H Hgb 16.7 H Hct 51.6 H RDW 16.5 H MPV 11.3 H Chloride 92 L Carbon Dioxide 34 H 33 H Creatinine 0.5 L Glucose 112 H 226 H Albumin 3.1 L Globulin Albumin/Globulin Ratio 0.9 L 0.9 L 07/14/19 07/13/19 07/13/19 06:39 06:20 06:20 RBC 6.08 H 6.50 H Hgb 16.4 H 17.9 H Hct 52.4 H 56.3 H RDW 17.7 H 17.2 H MPV 11.9 H 10.6 H Chloride 93 L Carbon Dioxide 38 H Creatinine 0.5 L Glucose Albumin Globulin 3.9 H Albumin/Globulin Ratio 0.9 L Meds: Medications Acetaminophen (Tylenol) 650 mg PO Q6HP PRN PRN Reason: PAIN/FEVER > 101 Hydrocodone Bitart/Acetaminophen ([place] 10/325mg) 1 tab PO Q12HP PRN; Protocol PRN Reason: Pain Albuterol Sulfate (Ventolin) 2 puff INH Q4HP PRN PRN Reason: Shortness Of Breath Albuterol/Ipratropium (Duoneb) 3 ml NEB Q4HP PRN PRN Reason: Shortness Of Breath Albuterol/Ipratropium (Duoneb) 3 ml NEB Q6HRT [facility] Last Admin: 07/15/19 19:29 Dose: 3 ml Documented by: Aspirin (Aspirin) 81 mg PO DAILY [facility] Last Admin: 07/15/19 08:31 Dose: 81 mg Documented by: Diltiazem HCl (Cardizem) 60 mg PO QID [facility] Last Admin: 07/15/19 16:54 Dose: 60 mg Documented by: Docusate Sodium (Colace) 100 mg PO BID [facility] Last Admin: 07/15/19 08:31 Dose: 100 mg Documented by: Enoxaparin Sodium (Lovenox) 40 mg SQ DAILY [facility] Last Admin: 07/15/19 08:30 Dose: 40 mg Documented by: Furosemide (Lasix) 20 mg PO BID [facility] Last Admin: 07/15/19 08:30 Dose: 20 mg Documented by: Ceftriaxone Sodium 2 gm/ (Dextrose) 50 mls @ 100 mls/hr IV Q24H [facility]; Protocol Last Infusion: 07/15/19 09:01 Dose: Infused Documented by: Magnesium Sulfate (Magnesium Sulfate) 2 gm in 50 mls @ 50 mls/hr IV UD PRN PRN Reason: Magnesium </= 1.6 Diltiazem HCl 125 mg/ Dextrose 125 mls @ 5 mls/hr IV Q12H [facility]; Protocol Last Admin: 07/15/19 18:29 Dose: Not Given Documented by: Lactulose (Cephulac) 20 gm PO DAILYP PRN PRN Reason: Constipation Last Admin: 07/13/19 09:53 Dose: 20 gm Documented by: Lorazepam (Ativan) 2 mg PO BIDP PRN PRN Reason: Anxiety Last Admin: 07/15/19 15:11 Dose: 2 mg Documented by: Metoprolol Tartrate (Lopressor) 25 mg PO BID [facility] Last Admin: 07/15/19 08:32 Dose: 25 mg Documented by: Metoprolol Tartrate (Lopressor) 5 mg IV Q2HP PRN PRN Reason: Tachyarrhythmias HR>110 Last Admin: 07/15/19 18:25 Dose: 5 mg Documented by: Montelukast Sodium (Singular) 10 mg PO HS [facility] Last Admin: 07/14/19 21:37 Dose: 10 mg Documented by: Morphine Sulfate (Ms Contin) 60 mg PO TID [facility] Last Admin: 07/15/19 15:11 Dose: 60 mg Documented by: Febuxostat [Uloric] (80 Mg) 80 mg PO QDAY [facility] Last Admin: 07/15/19 08:30 Dose: 80 mg Documented by: Ondansetron HCl (Zofran) 4 mg IV Q4HP PRN PRN Reason: Nausea And Vomiting Polyethylene Glycol (Miralax) 17 gm PO DAILYP PRN PRN Reason: Constipation Last Admin: 07/13/19 09:53 Dose: 17 gm Documented by: [facility]) [facility] Last Admin: 07/15/19 08:30 Dose: 30 mg Documented by: Fluticasone/Salmeterol (Advair 250-50 Diskus) 1 puff INH BID [facility] Last Admin: 07/15/19 08:31 Dose: 1 puff Documented by: Senna (Senokot) 2 tab PO DAILYP PRN PRN Reason: Constipation Last Admin: 07/14/19 21:38 Dose: 2 tab Documented by: Sodium Chloride (Saline Flush) 10 ml IV Q8 [facility] Last Admin: 07/15/19 15:03 Dose: 10 ml Documented by: Tizanidine HCl (Zanaflex) 4 mg PO TIDP PRN PRN Reason: MUSCLE SPASMS Venlafaxine HCl (Effexor Xr) 150 mg PO DAILY [facility] Last Admin: 07/15/19 08:31 Dose: 150 mg Documented by: Medical - PN: A/P - Time Spent With Patient Total time spent is greater than 50% in coordination of care (as documented) at patient's floor/unit and/or counseling patient: - Narrative A/P Narrative: A: *Acute hypoxic respiratory failure with chronic CO2 retention compensated: 2/2 PNA/Copd -on bipap in ED, now 3L [place] -feeling better but slow progress in parameters *PNA (Haemophilus influenza): -leukocytosis improved, resp viral panel neg -sputum culture - positive for ampicillin resistant Haemophilus influenzae *AECOPD (3L o2@home): Follows with Dr. Bray *Chronic metabolic alkalosis: 2/2 above *h/o chemical lung injury from cleaning products in the 's with Pulmonary Fibrosis: *h/o systolic CHF(30% EF march): Follows with [facility] cardiology *Anxiety: *HTN: *Tobacco abuse: *Obesity: *chr pain: *AFib rvr: -CHADSVASC=2-3; refuses anticoagulation at this time P: -home O2 -on rocephin/azithro -steroids(wean)/nebs/RT -IS/acapella -seen by dam worker -Continue home BB, continue home Lasix -hold ACEI for hyperkalemia, BP good w/o -echo pending -cont Lopressor(switched from coreg given COPD and low BP), titrate up -No Diltiazem given reduced EF, f/u echo -Continue home anxiety medication -PT/OT -Smoking cessation counseling -f/u with pulomology outpt and sleep study -f/u with cardiology for Afib/chf -ppx: Lovenox full code Medical - PN: Qual - Stroke Symptom Onset Unknown: No - VTE Deep Vein Thrombosis/Pulmonary Embolism Present on Admission: No
[2019-07-15] MEDS: MONTELUKAST 10 MG TABLET PO SCH (21:10)
[2019-07-15] MEDS: METOPROLOL TARTRATE 50 MG TABLET PO SCH (21:10)
[2019-07-16] MEDS: IPRATROPIUM/ALBUTEROL 3 ML AMPUL.NEB NEB SCH ×2 (01:00→07:22)
[2019-07-16] MEDS: 0.9 % SODIUM CHLORIDE 10 ML SYRINGE IV SCH ×3 (05:58→20:40)
--- NOTE | 2019-07-16 07:23 | Internal Med Progress Note ---
Medical - PN: Subj Patient information: Note initiated : 07/16/19 at 7:22 am Service Date, if different from initiated Date: [] Patient: Grace Canales a 59 y/o F admitted on 07/08/19 for Shortness of Breath. Chief Complaint: [] Interval history: Ms. Canales is a 59 year old F Presents the ED with increasing shortness of breath and cough different from baseline over the past couple days. 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 She follows with Dr. Bray. She is been admitted in March and April last year for COPD exacerbation. She had a chest x-ray and CT which showed lymphadenopathy and widespread bilateral infiltrates. Subsequent PET CT done by Dr. Bray which showed some pulmonary fibrosis and improved lymphadenopathy. She wears 3 L of oxygen day and night but over the past week is been wearing 5 L . She denies fevers or chills. She has chronic cough but she says is more productive lately, yellow-green sputum. She always feels wheezy. She arrived in the ED she had sats in the mid 80s on 5 L and she appeared to be in respiratory distress with an ABG noted to have elevated CO2 although her pH was compensated. She is placed on a BiPAP. She received breathing treatment as well as steroids. She feels comfortable on the BiPAP and much improved. She quit smoking about a month ago and then started smoking a little bit lately but not very much, maybe half a pack in a week. She also noted to have leukocytosis. Chest x-ray reported as white but infiltrate. Be worse from April imaging. She has a mild leukocytosis at 14 and an elevated CRP of 25. Denies chest pain. 3/4 Did not tolerate nasal cannula this morning was put back on BiPAP. Recently changed to CPAP setting primarily hypoxic issue. Patient does feel better and feels breathing is better. Her cough is more productive of clear sputum and breaking up and feels better to her. No shortness of breath in bed on the mask at this time. Leukocytosis improved. Respiratory viral panel negative. 3/5 Feeling better today. Able to take deeper breaths. Improved shortness of breath. Cough feels to be improving per her and is productive of white sputum. No other pains or complaints. Still on CPAP. By pulmonology last night. 3/6 Productive cough. She has chronic shortness of breath so she states is hard to tell if she is improved or not. However she is now on 15 L high flow good saturations which is changed from requiring CPAP and not tolerating high flow yesterday. Decreased leg swelling today. Was given some extra IV Lasix yesterday. 07/11 Does not have any new complaints. But still complains of cough and shortness of breath. No overnight events 07/12 Pt still has some sob. SpO2 > = 90% on 4-6L this afternoon. 07/13 Pt does not have new complaints. On 5L now, with saturation of 91% Her HR is not stable. Diltiazem drip was discontinued in this morning restarted this afternoon. 07/14 When I saw Ms Canales early this morning she was doing very well. HR controlled and she was on 3L, which is her baseline at home. She was told to be discharged today. But later this morning her HR went up to 150. Discharge was canceled. Meds for HR was adjusted. 07/15 Patient feels that she is at baseline shortness of breath has minimal cough. Swelling in legs much improved Heart rate 90s to 110's, symptomatic. Metoprolol increased to 50 twice daily. - Constitutional Vitals: Vital Signs Temp Pulse Resp BP Pulse Ox 97.1 F 74 20 113/73 93 07/16/19 04:01 07/16/19 02:19 07/16/19 04:01 07/16/19 04:01 07/16/19 04:39 Period Temp Pulse Resp BP Sys/Riggins Pulse Ox Last 24 Hr 97.1 F-98.8 F 74-113 14-22 91-142/61-110 84-94 Intake and Output 07/15/19 07/16/19 07/16/19 21:59 05:59 13:59 Intake Total 680 340 Output Total 950 Balance 680 -610 Weight 109.815 kg Intake & Output: Intake & Output 07/15/19 07/16/19 07/16/19 21:59 05:59 13:59 Intake Total 680 340 Output Total 950 Balance 680 -610 Weight 109.815 kg Intake: Oral 680 340 Output: Void Amount 950 Other: Meal Dinner Percent of Meal Consumed 100% Urine Appearance Clear Urine Color Bright Yellow Urine Odor Normal Stool Size Moderate Stool Color Brown Stool Consistency Formed # Bowel Movements 0 Exam: General: Alert, Awake, No acute Distress, obese Eyes/N/T: EOMI, Head/Neck: neck supple, CV: RRR, No murmurs, Pulm: no wheezing, prolonged expiratory phase, Abd: soft, nontender, +BS x4 Ext: no clubbing/cyanosis, 1+ b/l LE edema chronic improved Neuro: Alert, no focal deficits, moves all extremities, Skin: warm/dry Medical - PN: Obj Da - Labs CBC & Chem 7: 07/15/19 04:59 07/16/19 05:11 Labs: Abnormal Lab Results 07/15/19 07/15/19 07/14/19 04:59 04:59 10:17 RBC 5.98 H Hgb 16.7 H Hct 51.6 H RDW 16.5 H MPV 11.3 H Chloride 92 L Carbon Dioxide 34 H 33 H Creatinine 0.5 L Glucose 112 H 226 H Albumin 3.1 L Globulin Albumin/Globulin Ratio 0.9 L 0.9 L 07/14/19 07/13/19 07/13/19 06:39 06:20 06:20 RBC 6.08 H 6.50 H Hgb 16.4 H 17.9 H Hct 52.4 H 56.3 H RDW 17.7 H 17.2 H MPV 11.9 H 10.6 H Chloride 93 L Carbon Dioxide 38 H Creatinine 0.5 L Glucose Albumin Globulin 3.9 H Albumin/Globulin Ratio 0.9 L Meds: Medications Acetaminophen (Tylenol) 650 mg PO Q6HP PRN PRN Reason: PAIN/FEVER > 101 Hydrocodone Bitart/Acetaminophen ([place] 10/325mg) 1 tab PO Q12HP PRN; Protocol PRN Reason: Pain Albuterol Sulfate (Ventolin) 2 puff INH Q4HP PRN PRN Reason: Shortness Of Breath Albuterol/Ipratropium (Duoneb) 3 ml NEB Q4HP PRN PRN Reason: Shortness Of Breath Albuterol/Ipratropium (Duoneb) 3 ml NEB Q6HRT [facility] Last Admin: 07/16/19 01:00 Dose: Not Given Documented by: Aspirin (Aspirin) 81 mg PO DAILY [facility] Last Admin: 07/15/19 08:31 Dose: 81 mg Documented by: Docusate Sodium (Colace) 100 mg PO BID [facility] Last Admin: 07/15/19 21:10 Dose: 100 mg Documented by: Enoxaparin Sodium (Lovenox) 40 mg SQ DAILY [facility] Last Admin: 07/15/19 08:30 Dose: 40 mg Documented by: Furosemide (Lasix) 20 mg PO BID [facility] Last Admin: 07/15/19 21:11 Dose: 20 mg Documented by: Ceftriaxone Sodium 2 gm/ (Dextrose) 50 mls @ 100 mls/hr IV Q24H [facility]; Protocol Last Infusion: 07/15/19 09:01 Dose: Infused Documented by: Magnesium Sulfate (Magnesium Sulfate) 2 gm in 50 mls @ 50 mls/hr IV UD PRN PRN Reason: Magnesium </= 1.6 Lactulose (Cephulac) 20 gm PO DAILYP PRN PRN Reason: Constipation Last Admin: 07/13/19 09:53 Dose: 20 gm Documented by: Lorazepam (Ativan) 2 mg PO BIDP PRN PRN Reason: Anxiety Last Admin: 07/15/19 15:11 Dose: 2 mg Documented by: Metoprolol Tartrate (Lopressor) 5 mg IV Q2HP PRN PRN Reason: Tachyarrhythmias HR>110 Last Admin: 07/15/19 21:14 Dose: 5 mg Documented by: Metoprolol Tartrate (Lopressor) 50 mg PO BID [facility] Last Admin: 07/15/19 21:10 Dose: 50 mg Documented by: Montelukast Sodium (Singular) 10 mg PO HS [facility] Last Admin: 07/15/19 21:10 Dose: 10 mg Documented by: Morphine Sulfate (Ms Contin) 60 mg PO TID [facility] Last Admin: 07/15/19 21:10 Dose: 60 mg Documented by: Febuxostat [Uloric] (80 Mg) 80 mg PO QDAY [facility] Last Admin: 07/15/19 08:30 Dose: 80 mg Documented by: Ondansetron HCl (Zofran) 4 mg IV Q4HP PRN PRN Reason: Nausea And Vomiting Polyethylene Glycol (Miralax) 17 gm PO DAILYP PRN PRN Reason: Constipation Last Admin: 07/13/19 09:53 Dose: 17 gm Documented by: Prednisone (Prednisone) 30 mg PO [facility] Last Admin: 07/15/19 08:30 Dose: 30 mg Documented by: Fluticasone/Salmeterol (Advair 250-50 Diskus) 1 puff INH BID [facility] Last Admin: 07/15/19 21:09 Dose: 1 puff Documented by: Senna (Senokot) 2 tab PO DAILYP PRN PRN Reason: Constipation Last Admin: 07/14/19 21:38 Dose: 2 tab Documented by: Sodium Chloride (Saline Flush) 10 ml IV Q8 [facility] Last Admin: 07/16/19 05:58 Dose: 10 ml Documented by: Tizanidine HCl (Zanaflex) 4 mg PO TIDP PRN PRN Reason: MUSCLE SPASMS Venlafaxine HCl (Effexor Xr) 150 mg PO DAILY [facility] Last Admin: 07/15/19 08:31 Dose: 150 mg Documented by: Medical - PN: A/P - Time Spent With Patient Total time spent is greater than 50% in coordination of care (as documented) at patient's floor/unit and/or counseling patient: - Narrative A/P Narrative: A: *Acute hypoxic respiratory failure with chronic CO2 retention compensated: 2/2 PNA/Copd -on bipap in ED, now 3L [place] -feeling better but slow progress in parameters *PNA (Haemophilus influenza): -leukocytosis improved, resp viral panel neg -sputum culture - positive for ampicillin resistant Haemophilus influenzae *AECOPD (3L o2@home): Follows with Dr. 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 with Pulmonary Fibrosis: *h/o systolic CHF(30% EF march echo): Follows with [facility] cardiology -Updated Echo shows EF 55-60% *Anxiety: *HTN: *Tobacco abuse: *Obesity: *chr pain: *AFib rvr: -CHADSVASC=2-3 -is ok with starting anticoagulation P: -home O2 -on rocephin/azithro -steroids(wean)/nebs/RT -IS/acapella -seen by infrastructure engineer -Continue home BB, continue home Lasix -hold ACEI for hyperkalemia, BP good w/o it -start eliquis -cont Lopressor(switched from coreg given COPD and low BP), titrate up -Continue home anxiety medication -PT/OT -Smoking cessation counseling -f/u with pulomology outpt and sleep study -f/u with cardiology for Afib/chf -ppx: Lovenox full code Medical - PN: Qual - Stroke Symptom Onset Unknown: No - VTE Deep Vein Thrombosis/Pulmonary Embolism Present on Admission: No
[2019-07-16] MEDS: METOPROLOL TARTRATE 5 MG/5 ML VIAL IV PRN ×2 (07:35→13:25)
[2019-07-16 07:46] LABS: ALT/SGPT 19 U/l (0-40); AST/SGOT 14 U/l (0-37); Albumin 3.1 gm/dL (3.2-5.2); Alkaline Phosphatase 62 U/L (39-117); Bilirubin,Direct < 0.2 mg/dL (0.0-0.3); Bilirubin,Total 0.4 mg/dL (0.0-1.0); Blood Urea Nitrogen 14 mg/dl (6-20); Carbon Dioxide 35 mmol/L (22-30); Chloride 97 mmol/L (96-108); Globulin 3.1 gm/dL (2.2-3.7); Glomerular Filtration Rate 107; Glucose 104 mg/dL (70-105); Lactate Dehydrogenase 127 U/L (94-250); Phosphorous 3.2 mg/dL (2.7-4.5); Triglycerides 131 mg/dl (<150); Uric Acid 2.3 mg/dL (2.5-8.0)
[2019-07-16] MEDS: predniSONE 10 MG TABLET PO SCH (08:21)
[2019-07-16] MEDS: VENLAFAXINE 150 MG CAP.XL.24H PO SCH (08:22)
[2019-07-16] MEDS: METOPROLOL TARTRATE 50 MG TABLET PO SCH ×2 (08:22→20:37)
[2019-07-16] MEDS: morphine 30 MG TAB.SR.12H PO SCH ×3 (08:22→20:37)
[2019-07-16] MEDS: FLUTICASONE/SALMETEROL 250/50 INHALER #14 INH SCH ×2 (08:22→20:39)
[2019-07-16] MEDS: FUROSEMIDE 40 MG TABLET PO SCH ×2 (08:23→20:37)
[2019-07-16] MEDS: ENOXAPARIN 40 MG/0.4 ML SYRINGE SQ SCH (08:23)
[2019-07-16] MEDS: Febuxostat [Uloric] 80 MG PO SCH (08:23)
[2019-07-16] MEDS: DOCUSATE SODIUM 100 MG CAPSULE PO SCH ×2 (08:24→20:39)
[2019-07-16] MEDS: cefTRIAXone 2 GM in DEXTROSE 5% IN WATER 50 ML IV SCH (08:24)
[2019-07-16] MEDS: ASPIRIN 81 MG TAB.CHEW PO SCH (08:24)
[2019-07-16] MEDS ORDERED: POTASSIUM CHLORIDE 20 MEQ TABLET PO ONE (08:52)
[2019-07-16] MEDS ORDERED: APIXABAN 5 MG TABLET PO ONE (11:37)
[2019-07-16] MEDS ORDERED: METOPROLOL TARTRATE 25 MG TABLET PO ONE ×2 (11:42→14:30)
--- NOTE | 2019-07-16 11:48 | Discharge Summary ---
Medical - DS: Prov Patient information: Note initiated : 07/16/19 at 11:45 am Service Date, if different from initiated Date: [] Patient: Grace Canales 59 y/o F admitted on 07/08/19 for Shortness of Breath. Chief Complaint: [] Date of admission: 07/08/19 21:09 Discharge date: 07/17/19 Primary care physician: Albin Moctezuma Consults: 07/08/19 Consult to Physician [CONS] Stat Comment: Consulting Provider: Gilberto Rivera Reason For Exam: Physician to Consult 07/09/19 03:11 Consult to Physician [CONS] Routine Comment: COPD exacerbation Consulting Provider: Sergei Burrows Reason For Exam: Physician to Consult Medical - DS: Meds - Discharge Medications Prescriptions: Apixaban [Eliquis] 5 mg PO BID #60 tab Metoprolol Tartrate [Lopressor] 100 mg PO BID #60 tab predniSONE [Prednisone] [facility] Active and Home Medications: Home Medications Albuterol Sulfate [Ventolin] 2 puff INH Q4HP PRN 03/17/19 [History Confirmed 07/08/19 Last Taken 04/22/19 14:00] Aspirin 81 mg PO DAILY 03/17/19 [History Confirmed 07/08/19 Last Taken 04/22/19 09:30] Febuxostat [Uloric] 80 mg PO QDAY 03/17/19 [History Confirmed 07/08/19 Last Taken 04/22/19 09:30] Fluticasone/Salmeterol [Advair 250-50 Diskus] 1 puff INH BID 03/17/19 [History Confirmed 07/08/19 Last Taken 04/22/19 09:30] Furosemide [Lasix] 20 mg PO BID 03/17/19 [History Confirmed 07/08/19 Last Taken 04/22/19 09:30] HYDROcodone/APAP 10/325MG [[place] 10-325Mg] 1 tab PO Q12HP PRN 03/17/19 [History Confirmed 07/08/19 Last Taken 04/22/19 12:00] Montelukast Sodium [Singulair] 10 mg PO HS 03/17/19 [History Confirmed 07/08/19 Last Taken 04/21/19 19:30] Venlafaxine [Effexor Xr] 150 mg PO DAILY 03/17/19 [History Confirmed 07/08/19 Last Taken Unknown] tiZANidine [Zanaflex] 4 mg PO TIDP PRN 03/17/19 [History Confirmed 07/08/19 Last Taken Unknown] Nebulizer [Aeroeclipse II] 1 each MC QID 999 Days #1 each 03/20/19 [Rx Confirmed 07/08/19 Last Taken Unknown] Carvedilol [Coreg] 3.125 mg PO BIDCC #60 tab 04/25/19 [Rx Confirmed 07/08/19 Last Taken Unknown] Lisinopril [Zestril] 2.5 mg PO DAILY #15 tab 04/25/19 [Rx Confirmed 07/08/19 Last Taken Unknown] Cetirizine [ZyrTEC] 10 mg PO DAILY 07/08/19 [History Confirmed 07/08/19 Last Taken Unknown] LORazepam [Ativan] 2 mg PO BID PRN 07/08/19 [History Confirmed 07/08/19 Last Taken Unknown] morphine SULFATE [Ms Contin] 60 mg PO TID 07/08/19 [History Confirmed 07/08/19 Last Taken Unknown] Medical - DS: Hosp Hospital Course: Ms. Canales is a 59 year old F Presents the ED with increasing shortness of breath and cough different from baseline over the past couple days. 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 She follows with Dr. Bray. She is been admitted in March and April last year for COPD exacerbation. She had a chest x-ray and CT which showed lymphadenopathy and widespread bilateral infiltrates. Subsequent PET CT done by Dr. Bray which showed some pulmonary fibrosis and improved lymphadenopathy. She wears 3 L of oxygen day and night but over the past week is been wearing 5 L. She denies fevers or chills. She has chronic cough but she says is more productive lately, yellow-green sputum. She always feels wheezy. She arrived in the ED she had sats in the mid 80s on 5 L and she appeared to be in respiratory distress with an ABG noted to have elevated CO2 although her pH was compensated. She is placed on a BiPAP. She received breathing treatment as well as steroids. She feels comfortable on the BiPAP and much improved. She quit smoking about a month ago and then started smoking a little bit lately but not very much, maybe half a pack in a week. She also noted to have leukocytosis. Chest x-ray reported as white but infiltrate. Be worse from April imaging. She has a mild leukocytosis at 14 and an elevated CRP of 25. Denies chest pain. 07/08 Did not tolerate nasal cannula this morning was put back on BiPAP. Recently changed to CPAP setting primarily hypoxic issue. Patient does feel better and feels breathing is better. Her cough is more p roductive of clear sputum and breaking up and feels better to her. No shortness of breath in bed on the mask at this time. Leukocytosis improved. Respiratory viral panel negative. 07/09 Feeling better today. Able to take deeper breaths. Improved shortness of breath. Cough feels to be improving per her and is productive of white sputum. No other pains or complaints. Still on CPAP. By pulmonology last night. 07/10 Productive cough. She has chronic shortness of breath so she states is hard to tell if she is improved or not. However she is now on 15 L high flow good saturations which is changed from requiring CPAP and not tolerating high flow yesterday. Decreased leg swelling today. Was given some extra IV Lasix yesterday. 07/11 Does not have any new complaints. But still complains of cough and shortness of breath. No overnight events 07/12 Pt still has some sob. SpO2 > = 90% on 4-6L this afternoon. 07/13 Pt does not have new complaints. On 5L now, with saturation of 91% Her HR is not stable. Diltiazem drip was discontinued in this morning restarted this afternoon. 07/14 When I saw Ms Canales early this morning she was doing very well. HR controlled and she was on 3L, which is her baseline at home. She was told to be discharged today. But later this morning her HR went up to 150. Discharge was canceled. Meds for HR was adjusted. 07/15 Patient feels that she is at baseline shortness of breath has minimal cough. Swelling in legs much improved Heart rate 90s to 110's, symptomatic. Metoprolol increased to 50 twice daily. Has appointment to see cement mason in the morning 07/16 Patient doing well heart rate 90s to low 100s. Has cardiology appointment today. Patient stable for discharge and will need further adjustment of cardiac meds by cardiology. A: *Acute hypoxic respiratory failure with chronic CO2 retention compensated: 2/2 PNA/Copd *PNA (Haemophilus influenza): -leukocytosis improved, resp viral panel neg -sputum culture - positive for ampicillin resistant Haemophilus influenzae *AECOPD (3L o2@home): Follows with Dr. Bray *Chronic metabolic alkalosis: 2/2 above *h/o chemical lung injury from cleaning products in the s with Pulmonary Fibrosis: *h/o systolic CHF(30% EF march echo): Follows with [facility] cardiology -Updated Echo shows EF 55-60% *Anxiety: *HTN: *Tobacco abuse: *Obesity: *chr pain: *AFib rvr: -CHADSVASC=2-3 -is ok with starting anticoagulation Discharge diagnosis: Acute hypoxic respite failure pneumonia COPD Secondary discharge diagnosis: Heart failure chemical lung injury anxiety tobacco abuse hypertension obesity A. fib with RVR - Time Spent with Patient Total time spent providing and/or coordinating discharge services: Greater than 30 minutes Medical - DS: Exam - Constitutional Vitals: Vital Signs Temp Pulse Pulse Resp BP Pulse Ox 07/16/19 08:16 87 L 07/16/19 07:24 97 H 18 07/16/19 07:01 97.3 F 20 119/80 91 07/16/19 06:01 136/80 90 07/16/19 05:01 123/89 92 07/16/19 04:39 93 07/16/19 04:01 97.1 F 20 113/73 94 07/16/19 03:01 119/77 92 07/16/19 02:19 74 93 07/16/19 02:01 113/80 93 07/16/19 01:01 129/88 93 07/16/19 00:01 97.5 F 20 121/81 92 07/15/19 23:01 142/92 93 07/15/19 21:10 113 H 90 07/15/19 21:01 104/82 07/15/19 20:01 98.8 F 22 115/80 92 07/15/19 19:01 105/71 93 07/15/19 18:05 123/88 93 07/15/19 18:01 104/85 91 03/10/20 16:37 93 07/15/19 16:01 97.4 F 110/80 93 07/15/19 15:02 92/68 84 L 07/15/19 14:52 102/61 90 07/15/19 14:01 91/69 91 07/15/19 14:00 94 07/15/19 13:38 106 H 14 07/15/19 12:08 89 L 07/15/19 12:01 97.3 F 20 112/85 90 Intake and Output 07/15/19 07/16/19 07/16/19 21:59 05:59 13:59 Intake Total 680 340 Output Total 950 Balance 680 -610 Intake: Oral 680 340 Output: Void Amount 950 Other: Meal Dinner Percent of Meal Consumed 100% Urine Appearance Clear Urine Color Bright Yellow Urine Odor Normal Stool Size Moderate Stool Color Brown Stool Consistency Formed # Bowel Movements 0 Weight 109.815 kg Medical - DS: Data Labs on day of discharge: Labs from last 24 hours 07/16/19 07/15/19 05:11 15:16 Sodium 142 Potassium 3.4 Chloride 97 Carbon Dioxide 35 H Anion Gap 10.0 BUN 14 Creatinine 0.5 L GFR Calculation 107 Glucose 104 Uric Acid 2.3 L Calcium 9.0 Phosphorus 3.2 Magnesium 2.1 2.1 Total Bilirubin 0.4 Direct Bilirubin < 0.2 GGT 61 H AST 14 ALT 19 Alkaline Phosphatase 62 Lactate Dehydrogenase 127 Total Protein 6.2 Albumin 3.1 L Globulin 3.1 Albumin/Globulin Ratio 1.0 Triglycerides 131 Medical - DS: A/P - Patient/Caregiver Discharge Instructions Activity: increase activity as tolerated Diet: Regular Diet Additional Instructions: Sleep Study referral by your PCP or your Arborist suggested. Prescriptions: Apixaban [Eliquis] 5 mg PO BID #60 tab Metoprolol Tartrate [Lopressor] 100 mg PO BID #60 tab predniSONE [Prednisone] 20 mg PO [facility] #1 tab - Follow up Plan Follow up with: Talisha Ngo MD [Physician] - 07/21/19 11:30 am Manoj Shanks MD [Physician] - 07/17/19 1:10 pm (This appointment is with Sorin Marie) Hang Bray [Referring] - 08/04/19 10:30 am (Please arrive [address] Bray's office will mail you paperwork to update your records, please bring this with you to your appointment.) Disposition: Home, Self-Care Care Plan Goals: This discharge packet is provided to you to help keep you informed about your care. We want to ensure you get everything you need when you go home. You will also be receiving a call from us in a few days to follow up with you and see how you are doing since your discharge. This gives us a chance to listen to any concerns you maybe experiencing since you were discharged or any additional needs you may have, as well as providing us feedback on your care experience. We strive to always provide excellent care and thank you for your feedback and for choosing [facility]. Prognosis: Fair Rehab Potential: Fair Overall status at discharge: patient is progressing back to baseline Medical - DS: Qual - VTE Deep Vein Thrombosis/Pulmonary Embolism Present on Admission: No
[2019-07-16] MEDS: LORazepam 1 MG TABLET PO PRN (13:29)
[2019-07-16] MEDS ORDERED: LEVALBUTEROL 1.25 MG/3 ML AMPUL.NEB NEB PRN (13:34)
[2019-07-16] MEDS ORDERED: IPRATROPIUM 2.5 ML AMPUL.NEB NEB PRN (13:35)
[2019-07-16] MEDS ORDERED: DILTIAZEM 30 MG TABLET PO SCH (17:00)
[2019-07-16] MEDS: MONTELUKAST 10 MG TABLET PO SCH (20:37)
[2019-07-16] MEDS: APIXABAN 5 MG TABLET PO SCH (20:37)
[2019-07-16] MEDS ORDERED: METOPROLOL TARTRATE 50 MG TABLET PO SCH (21:00)
[2019-07-16] MEDS ORDERED: DILTIAZEM 120 MG CAP.XL.24H PO SCH (21:00)
[2019-07-17] MEDS: 0.9 % SODIUM CHLORIDE 10 ML SYRINGE IV SCH (05:16)
[2019-07-17] MEDS: morphine 30 MG TAB.SR.12H PO SCH (08:29)
[2019-07-17] MEDS: cefTRIAXone 2 GM in DEXTROSE 5% IN WATER 50 ML IV SCH (08:29)
[2019-07-17] MEDS: FLUTICASONE/SALMETEROL 250/50 INHALER #14 INH SCH (08:29)
[2019-07-17] MEDS: predniSONE 10 MG TABLET PO SCH (08:30)
[2019-07-17] MEDS: APIXABAN 5 MG TABLET PO SCH (08:30)
[2019-07-17] MEDS: VENLAFAXINE 150 MG CAP.XL.24H PO SCH (08:30)
[2019-07-17] MEDS: Febuxostat [Uloric] 80 MG PO SCH (08:30)
[2019-07-17] MEDS: METOPROLOL TARTRATE 50 MG TABLET PO SCH (08:30)
[2019-07-17] MEDS: FUROSEMIDE 40 MG TABLET PO SCH (08:30)
[2019-07-17] MEDS: DOCUSATE SODIUM 100 MG CAPSULE PO SCH (08:31)
== END 2019-07-17 11:05 | disposition home or self-care (01) | DRG 189 ==
LOC: ED 16:07 → ICU 21:09
PROVIDERS: ADMIT Internal Medicine; ATTEND Internal Medicine